=== PATIENT | female | born 1945 | race Caucasian/White ===

== ENCOUNTER 2021-05-15 04:42 | Inpatient (IN) | payer MEDICARE, MEDICAID, SELFPAY ==
[2021-05-15] VITALS (14 sets, daily range): BP systolic 100–130; BP diastolic 58–99; PULSE 83–148; RESP 16–34; TEMP 36.3–40.4; O2SAT 96–100; BMI 32.8
--- NOTE | ~2021-05-15 | CT_ITS ---
EXAMINATION: CT FOOT, LEFT, WITH CONTRAST CLINICAL INFORMATION: Left heel ulcer COMPARISON: None TECHNIQUE: Multidetector CT imaging examination of the left foot was performed with intravenous administration of 85 mL Omnipaque 350. No contrast reaction reported. This CT examination was performed using dose optimization techniques as appropriate, variously including the following: *Automated exposure control. *Adjustment of mA and/or kV according to patient size (this includes techniques or standardized protocols for targeted exams where dose is matched to indication/reason for exam, i.e., extremities or head). *Use of iterative reconstruction technique. DLP: 241 mGycm FINDINGS: There appears to be a superficial wound of the posterolateral heel without underlying fluid collection or soft tissue gas. Moderate atrophy and partial fatty replacement of muscles of the visualized lower leg and foot. No soft tissue mass. No ankle joint effusion. The fat planes are maintained within the sinus tarsi and tarsal tunnel. There is edema in subcutaneous tissues of the lower leg, ankle and proximal foot. The Achilles tendon is normal. No retrocalcaneal bursitis. Plantar aponeurosis is grossly intact. The peroneal, flexor, extensor and tibialis tendons are grossly unremarkable. No evidence of tenosynovitis. The bones are diffusely osteopenic. No evidence of erosion or periostitis. No acute fracture or subluxation. CT/CT foot LT w con IMPRESSION: * Bones are diffusely osteopenic. No acute osseous injury. * No evidence of soft tissue abscess or osteomyelitis in the left ankle or foot. * Mild edema is present in the subcutaneous tissues of the visualized lower leg, ankle and foot.
--- NOTE | ~2021-05-15 | XR_ITS ---
EXAMINATION: XR CHEST CLINICAL INFORMATION: Septic COMPARISON: None TECHNIQUE: Frontal view of the chest was obtained. FINDINGS: Normal symmetric lung volumes. No parenchymal consolidation. No pleural effusion. No pneumothorax. Cardiomediastinal silhouette and pulmonary vascularity are within normal limits. Aorta is atherosclerotic. No acute osseous abnormalities. XR/XR chest 1V IMPRESSION: Unremarkable examination.
--- NOTE | 2021-05-15 04:51 | ECG_ITS ---
Test Reason : AMS Blood Pressure : / mmHG Vent. Rate : 148 BPM Atrial Rate : 115 BPM P-R Int : 000 ms QRS Dur : 076 ms QT Int : 266 ms P-R-T Axes : 000 -09 208 degrees QTc Int : 417 ms Atrial fibrillation with rapid ventricular response ST & T wave abnormality, consider inferolateral ischemia Abnormal ECG No previous ECGs available Referred By: Amy Hernandez Electronically Signed By:CRYSTAL ZAVALA
--- NOTE | 2021-05-15 04:53 | ED_ITS ---
HPI - General Adult General Chief complaint: Skin/Abscess/Foreign Body Stated complaint: FOUND UNRESPONSIVE,AROUSE TO VERBAL @ SNF Time Seen by Provider: 05/15/21 04:51 Source: patient Mode of arrival: EMS History of Present Illness HPI narrative: 75-year-old female, recently diagnosed with sepsis, this is responsive to pain and will track with eyes but noted to be febrile at 104.1 and unable to provide additional information on initial arrival. Related Data Home Medications Medication Instructions Recorded Confirmed Lactobacillus rhamnosus GG 1 cap PO BID 05/15/21 05/15/21 [Culturelle] aripiprazole 15 mg PO DAILY 05/15/21 05/15/21 aspirin 81 mg PO DAILY 05/15/21 05/15/21 chlorhexidine gluconate [Peridex] 15 ml BUCCAL BID 05/15/21 05/15/21 divalproex 500 mg PO BID 05/15/21 05/15/21 doxycycline hyclate 100 mg PO BID 05/15/21 05/15/21 duloxetine 20 mg PO DAILY 05/15/21 05/15/21 levothyroxine 100 mcg PO DAILY 05/15/21 05/15/21 lorazepam 0.5 mg PO DAILY@1800 05/15/21 05/15/21 metformin 500 mg PO BID 05/15/21 05/15/21 metoprolol tartrate 25 mg PO BID 05/15/21 05/15/21 polyethylene glycol 3350 17 g PO DAILY 05/15/21 05/15/21 trazodone 25 mg PO BEDTIME 05/15/21 05/15/21 Allergies Allergy/AdvReac Type Severity Reaction Status Date / Time No Known Allergies Allergy Unverified 05/15/21 04:51 Review of Systems Review of Systems: Yes Unobtainable due to mental condition [facility] Past Medical History Source: nursing notes reviewed Social History Social History Advance Directives: No Advance Directives Information Provided: No Physical Exam Vital Signs: Vital Signs: Last Vital Signs Temp 99.7 F 05/15/21 07:36 Pulse 100 05/15/21 07:36 Resp 26 H 05/15/21 07:36 BP 129/60 05/15/21 07:36 Pulse Ox 100 05/15/21 07:36 Body Mass Index 32.8 VITAL SIGNS: Reviewed. GENERAL: Chronically ill, distress. HEAD: Normocephalic/atraumatic EYES: PERRLA, EOMI EARS: Ext canals without abnormality, TMs non-bulging and non-erythematous NOSE: Nares patent bilateral OROPHARYNX: no oral lesions noted, posterior pharynx clear, dry mucosa, protecting airway NECK: Supple, no adenopathy LUNGS: Decreased breath sounds bilaterally without rales and no noted rhonchi,+ tachypnea. SpO2<97> on supplemental nasal cannula CARDIOVASCULAR: IRR/IRR without noted murmurs, no JVD but lower extremity edema. ABDOMEN: Obese, Soft, non-tender, non-distended with bowel sounds. LEFT LOWER EXTREMITY: Significant edema, erythema, palpable DP/PT, capillary refill less than 3 seconds, pressure ulcer noted at the left heel with discoloration SKIN: Inspection of the skin reveals no rashes, tactile fever NEUROLOGIC: Lethargic and strength and sensation unable to be addressed. Course Course Course Narrative: 75-year-old female with history and clinical presentation consistent with sepsis secondary to left lower extremity cellulitis and initially rapid temperature intervention conducted with application of ice packs as well as medications. Patient received IV fluids, antibiotics, lactic acid, blood cultures as well as placement of Pascal catheter and antipyretics. On review of all investigations all findings consistent with sepsis secondary to left lower extremity cellulitis and despite reduction of temperature heart rate remained elevated and patient received 5 mg of Lopressor which resulted in good rate control and patient's blood pressure has remained stable throughout. On re-evaluation, patient is now easily arousable and communicates readily. Discussed the case with inpatient hospitalist team who is agreeable for admission. Medical Decision Making Lab Data Result diagrams: 05/15/21 04:59 05/15/21 05:00 Labs: Lab Results 05/15/21 05/15/21 05/15/21 Range/Units 04:59 04:59 05:00 WBC 13.0 H (4.8-10.8) X10*3/uL RBC 3.93 L (4.20-5.50) X10*6/uL Hgb 12.9 (12.0-16.0) g/dl Hct 38.5 (37-47) % MCV 98.0 (80-98) fL MCH 32.8 (27.0-33.0) pg MCHC 33.5 (31.0-35.0) g/dl RDW 14.1 (11.0-16.0) % Plt Count 88 L (160-400) X10*3/uL MPV 12.1 (9.4-12.3) fL Immature Gran % (Auto) 0.7 H (0.0-0.4) % Neut % (Auto) 85.7 H (45-73) % Lymph % (Auto) 4.8 L (20-40) % Castro % (Auto) 8.6 (2-11) % Eos % (Auto) 0.0 (0-4) % Baso % (Auto) 0.2 (0-2) % Lymph # (Auto) 0.6 L (1.2-4.9) X10*3/uL Castro # (Auto) 1.1 (0.1-1.2) X10*3/uL Eos # (Auto) 0.0 (0.0-0.4) X10*3/uL Baso # (Auto) 0.0 (0.0-0.2) X10*3/uL Abs Immat Gran (auto) 0.09 H (0.00-0.03) X10*3/uL Absolute Neuts (auto) 11.1 H (2.0-8.3) X10*3/uL Absolute Nucleated RBC 0.020 H (0.0-0.012) X10*3/uL Nucleated RBC % (auto) 0.2 (0.0-0.2) /100WBC PT 14.5 H (9.9-13.0) SEC INR 1.3 H (0.9-1.1) Sodium 139 (135-145) mmol/L Potassium 3.6 (3.3-5.1) mmol/L Chloride 104 (96-108) mmol/L Carbon Dioxide 20 L (22-29) mmol/L Anion Gap 19 (12-20) BUN 43 H (9-16) mg/dL Creatinine 1.53 H (0.5-1.4) mg/dL Estim Creat Clear Calc 36.3 Estimated GFR 33 Random Glucose 340 H (60-115) mg/dL Lactic Acid (0.5-2.0) mmol/L Calcium 8.5 (8.4-10.2) mg/dL Magnesium 1.7 (1.6-2.6) mg/dL Total Bilirubin 0.8 (0.0-1.0) mg/dL AST 16 (5-31) U/L ALT 22 (0-31) U/L Alkaline Phosphatase 59 (39-117) U/L B-Natriuretic Peptide (<100) pg/mL Total Protein 6.1 L (6.5-8.0) g/dL Albumin 3.2 L (3.5-5.0) g/dL Lipase 8 (8-78) U/L Urine Color Urine Appearance Urine pH (5.0-8.0) Ur Specific [place] (1.005-1.025) Urine Protein (NEG-TRACE) MG/DL Urine Glucose (UA) (NEG) MG/DL Urine Ketones (NEG) MG/DL Urine Blood (NEG) Urine Nitrite (NEG) Ur Leukocyte Esterase (NEG) Urine RBC (0) /HPF Urine WBC (0-4) /HPF Ur Squamous Epith Cells /LPF Amorphous Sediment /LPF Urine Bacteria /LPF Granular Casts /LPF Urine Mucus /LPF Acetone, Qual Negative (Negative) 05/15/21 05/15/21 05/15/21 Range/Units 05:00 05:00 05:12 WBC (4.8-10.8) X10*3/uL RBC (4.20-5.50) X10*6/uL Hgb (12.0-16.0) g/dl Hct (37-47) % MCV (80-98) fL MCH (27.0-33.0) pg MCHC (31.0-35.0) g/dl RDW (11.0-16.0) % Plt Count (160-400) X10*3/uL MPV (9.4-12.3) fL Immature Gran % (Auto) (0.0-0.4) % Neut % (Auto) (45-73) % Lymph % (Auto) (20-40) % Castro % (Auto) (2-11) % Eos % (Auto) (0-4) % Baso % (Auto) (0-2) % Lymph # (Auto) (1.2-4.9) X10*3/uL Castro # (Auto) (0.1-1.2) X10*3/uL Eos # (Auto) (0.0-0.4) X10*3/uL Baso # (Auto) (0.0-0.2) X10*3/uL Abs Immat Gran (auto) (0.00-0.03) X10*3/uL Absolute Neuts (auto) (2.0-8.3) X10*3/uL Absolute Nucleated RBC (0.0-0.012) X10*3/uL Nucleated RBC % (auto) (0.0-0.2) /100WBC PT (9.9-13.0) SEC INR (0.9-1.1) Sodium (135-145) mmol/L Potassium (3.3-5.1) mmol/L Chloride (96-108) mmol/L Carbon Dioxide (22-29) mmol/L Anion Gap (12-20) BUN (9-16) mg/dL Creatinine (0.5-1.4) mg/dL Estim Creat Clear Calc Estimated GFR Random Glucose (60-115) mg/dL Lactic Acid 3.1 H* (0.5-2.0) mmol/L Calcium (8.4-10.2) mg/dL Magnesium (1.6-2.6) mg/dL Total Bilirubin (0.0-1.0) mg/dL AST (5-31) U/L ALT (0-31) U/L Alkaline Phosphatase (39-117) U/L B-Natriuretic Peptide 149 H (<100) pg/mL Total Protein (6.5-8.0) g/dL Albumin (3.5-5.0) g/dL Lipase (8-78) U/L Urine Color DARK YELLOW Urine Appearance CLOUDY Urine pH 6.0 (5.0-8.0) Ur Specific [place] >= 1.030 H (1.005-1.025) Urine Protein 2+ H (NEG-TRACE) MG/DL Urine Glucose (UA) 500 H (NEG) MG/DL Urine Ketones 40 (NEG) MG/DL Urine Blood 2+ H (NEG) Urine Nitrite NEG (NEG) Ur Leukocyte Esterase NEG (NEG) Urine RBC 0-2 (0) /HPF Urine WBC 1-4 (0-4) /HPF Ur Squamous Epith Cells TRACE /LPF Amorphous Sediment 3+ /LPF Urine Bacteria NONE /LPF Granular Casts 15-29 /LPF Urine Mucus 1+ /LPF Acetone, Qual (Negative) ECG Data Attestation: I personally reviewed and interpreted this ECG as follows: Prior ECG tracings: not available for review Interpretation: Atrial fibrillation with RVR, HR -148, no STEMI, QRS/QTC are within normal limits. Critical Care Time Critical Care Time Critical Care Time: Yes Total Critical Care Time: 45 Attestation: I personally attest to this time spent taking care of the patient. Discharge Plan Discharge Clinical Impression: Cellulitis, Sepsis, SHREYAS (acute kidney injury), Dehydration Patient Disposition: Admitted As Inpatient
[2021-05-15] MEDS: Acetaminophen Supp 650 MG SUPP.RECT PR (05:04)
[2021-05-15] MEDS: Ketorolac Tromethamine 15 MG/ML VIAL IVPUSH (05:06)
[2021-05-15 05:07] LABS: MANUAL DIFF FLAG NO
[2021-05-15 05:08] LABS: Basophils Percent Auto 0.2 % (0-2); Hematocrit 38.5 % (37-47); Hemoglobin 12.9 g/dl (12.0-16.0); Imm Gran Abs Auto 0.09 X10*3/uL (0.00-0.03); Imm Gran Pct Auto 0.7 % (0.0-0.4); Lymphocytes Absolute Auto 0.6 X10*3/uL (1.2-4.9); Lymphocytes Percent Auto 4.8 % (20-40); Mean Corpuscular HGB Conc 33.5 g/dl (31.0-35.0); Mean Corpuscular Hemoglobin 32.8 pg (27.0-33.0); Mean Platelet Volume 12.1 fL (9.4-12.3); Monocytes Absolute Auto 1.1 X10*3/uL (0.1-1.2); Monocytes Percent Auto 8.6 % (2-11); NRBC Pct Auto 0.2 /100WBC (0.0-0.2); Neutrophils Absolute Auto 11.1 X10*3/uL (2.0-8.3); Neutrophils Percent Auto 85.7 % (45-73); Red Blood Count 3.93 X10*6/uL (4.20-5.50); Red Cell Distribution Width 14.1 % (11.0-16.0)
[2021-05-15 05:11] LABS: Platelet Count 88 X10*3/uL (160-400)
[2021-05-15 05:17] LABS: INTERNATIONAL NORM RATIO 1.3 (0.9-1.1); Prothrombin Time 14.5 SEC (9.9-13.0)
[2021-05-15 05:20] LABS: Glucose Urine UA 500 MG/DL (NEG); Leukocyte Esterase Urine NEG (NEG); Nitrite Urine NEG (NEG); Specific Gravity - Urine >= 1.030 (1.005-1.025); Urine Blood 2+ (NEG); Urine Ketones 40 MG/DL (NEG); Urine Protein 2+ MG/DL (NEG-TRACE)
[2021-05-15 05:21] LABS: Appearance Urine CLOUDY; Color Urine DARK YELLOW
[2021-05-15 05:22] LABS: Acetone, serum QL Negative (Negative)
[2021-05-15 05:32] LABS: Alanine Aminotransferase 22 U/L (0-31); Albumin Level 3.2 g/dL (3.5-5.0); Alkaline Phosphatase 59 U/L (39-117); Anion Gap 19 (12-20); Aspartate Amino Transferase 16 U/L (5-31); Bilirubin Total 0.8 mg/dL (0.0-1.0); Blood Urea Nitrogen 43 mg/dL (9-16); Calcium 8.5 mg/dL (8.4-10.2); Carbon Dioxide 20 mmol/L (22-29); Chloride 104 mmol/L (96-108); Creatinine Clr Calc Pharmacy 36.3; Estimated Glomerular Filt Rate 33; Glucose Random 340 mg/dL (60-115); Lipase 8 U/L (8-78); Magnesium 1.7 mg/dL (1.6-2.6); Potassium 3.6 mmol/L (3.3-5.1); Sodium 139 mmol/L (135-145); Total Protein 6.1 g/dL (6.5-8.0)
[2021-05-15 05:38] LABS: Amorphous Sediment Urine 3+ /LPF; Mucus Urine 1+ /LPF; RBC Urine 0-2 /HPF (0); Squamous Epithelial Cell Urine TRACE /LPF
[2021-05-15 05:46] LABS: Lactic Acid 3.1 mmol/L (0.5-2.0)
[2021-05-15 06:36] LABS: B Type Natriuretic Peptide 149 pg/mL (<100)
[2021-05-15] MEDS: Metoprolol Tartrate 5 MG/5 ML VIAL IVPUSH (06:46)
[2021-05-15] MEDS: 0.9 % Sodium Chloride 1,779 ML 1779 ML IVCONT (06:47)
[2021-05-15 07:06] LABS: Reflex Lactate? Lactic Acid Added
--- NOTE | 2021-05-15 07:35 | PHA.MEDREC ---
Pharmacy Consult ? Medication Reconciliation Pharmacy has completed the medication reconciliation.
[2021-05-15] MEDS: Piperacillin Sodium/Tazobactam 3.375 GM in 0.9 % Sodium Chloride 50 ML IV (07:48)
[2021-05-15 08:14] LABS: COVID-19 Test Negative (Negative)
[2021-05-15 08:30] LABS: ~Lactic Acid-LAB USE ONLY 2.7 mmol/L (0.5-2.0)
--- NOTE | 2021-05-15 09:07 | P.HPHOSP_ITS ---
History of Present Illness Date of Service: 05/15/21 Chief Complaint: altered mental status, fever, leg infection This history is obtained from review of the ED and SNF records, due to the patient's altered mental status. Ms Cook is a 75 year-old female long-term resident of [facility] with a history of recurrent sepsis from lower extremity cellulitis with bacteremia, atrial fibrillation, vascular dementia, and schizoaffective disorder who was sent in with worsening lethargy over the last 2 days in the context of cellulitis of the left leg and thigh. She was started on oral doxycycline 2 days ago, but the redness has progressed and she has basically stopped eating. She has been admitted to [facility] 3 times since March 2020 for sepsis from cellulitis with beta-hemolytic streptococcal bacteremia. Most recently, in November, she had cellulitis of the left thigh associated with group G streptococcal bacteremia and was treated with IV/IM ceftriaxone for 2 weeks. An echocardiogram during that admission showed normal EF and no vegetations. She was fully vaccinated against COVID-19 with mRNA vaccines in October 2020. In the ED, she was found to be severely septic with T 104.7, lactate of 3.1, and WBC 13. BP was 100/59. She was in AF/RVR with ventricular rate in the 140s. Platelets were decreased to 88 and serum cratinine was 1.53, compared to 0.896 on 05/13/21. She was hyperglycemic with glucose of 340. She was given APAP, IV metoprolol, 30 cc/kg of NS, and piperacillin/tazobactam. Currently, she is afebrile and ventricular rate is in the 90s and BP is 114/58. Review of Systems Review of Systems: Yes Unobtainable due to mental condition [facility] Medical History Atrial fibrillation Chronic constipation Hypothyroidism Recurrent bacteremia Recurrent cellulitis Schizoaffective disorder Trimalleolar fracture of ankle, closed Type 2 diabetes mellitus Vascular dementia Vitamin B12 deficiency Vitamin D deficiency Pertinent family history: unable to obtain due to patient condition and inability to reach family Surgical History Status post ORIF of fracture of ankle Social History Household Members: None Housing: Group Home Do you presently have visiting nurse or other home services: No Patient Tobacco Use Status: Never used Tobacco Use of substances other than those prescribed or required for medical reasons: No Currently Displaying Signs/Symptoms of Drug Intoxication Withdrawal: No Have you been hit, kicked, punched, or otherwise hurt by someone within the past year? If so, by whom?: No Do you feel safe in your current relationship?: No Is there a partner from a previous relationship who is making you feel unsafe now?: No Are you made to feel afraid or neglected: No Advance Directives: Yes (MARVEL VICENTE) Advance Directives on File: Yes Advance Directives Date on File: 05/15/21 Do you have thoughts of harming others: None Do you have a plan to hurt others: No Plan Recently lost weight without trying: No Nutrition Risks: No Nutritional Risk Patient : No : No Poor oral hygiene: No service: No Current occupational status: disabled Narrative: unable to obtain due to patient condition and inability to reach family Meds Allergies Allergy/AdvReac Type Severity Reaction Status Date / Time No Known Allergies Allergy Unverified 05/15/21 04:51 Active Medications: Current Medications Generic Name Dose Route Start Last Admin Trade Name Freq PRN Reason Stop Dose Admin Acetaminophen 650 mg 05/15/21 09:04 Acetaminophen 325 Mg Tablet PO Q6H PRN fever/pain Docusate Sodium 100 mg 05/15/21 09:15 Docusate Sodium 100 Mg Capsule PO BID CARRIE Enoxaparin Sodium 30 mg 05/15/21 09:15 Enoxaparin Sodium 30 Mg/0.3 Ml Syringe SUBCUT Q24H CARRIE Piperacillin Sod/Tazobactam 50 mls @ 100 mls/hr 05/15/21 09:00 Sod 2.25 gm/ Sodium Chloride IV Q6H CARRIE Lactated Ringer's 1,000 mls @ 50 mls/hr 05/15/21 09:00 Lr IVCONT 05/16/21 04:59 .Q20H CARRIE Insulin Human Lispro 0 unit 05/15/21 11:30 Insulin Lispro 100 Unit/Ml 3 Ml Vial SUBCUT QIDACHS CARRIE Ondansetron HCl 4 mg 05/15/21 09:01 Ondansetron Hcl 4 Mg/2 Ml Vial IVPUSH Q6H PRN nausea/vomitingadd Pharmacy Consult 1 each 05/15/21 07:16 Consult Rx Perform Med Rec MISCELLANE ONCE PRN Consult order Pharmacy Consult 1 each 05/15/21 08:55 Consult Rx Vancomycin Dosing MISCELLANE 05/15/21 08:56 STAT STA Polyethylene Glycol 17 gm 05/15/21 09:01 Polyethylene Glycol 3350 17 Gm Powd.Pack PO DAILY PRN constipation Senna 17.2 mg 05/15/21 21:00 Sennosides 8.6 Mg Tablet PO BEDTIME [facility] Home Medications Medication Instructions Recorded Confirmed Last Taken Type Lactobacillus rhamnosus GG 10 1 cap PO BID 05/15/21 05/15/21 05/14/21 History billion cell capsule (Culturelle) aripiprazole 15 mg tablet 15 mg PO DAILY 05/15/21 05/15/21 05/14/21 History aspirin 81 mg tablet,delayed 81 mg PO DAILY 05/15/21 05/15/21 05/14/21 History release chlorhexidine gluconate 0.12 % 15 ml BUCCAL BID 05/15/21 05/15/21 05/14/21 History mouthwash (Peridex) divalproex 500 mg tablet,delayed 500 mg PO BID 05/15/21 05/15/21 05/14/21 History release doxycycline hyclate 100 mg capsule 100 mg PO BID 05/15/21 05/15/21 05/14/21 History duloxetine 20 mg capsule,delayed 20 mg PO DAILY 05/15/21 05/15/21 05/14/21 History release levothyroxine 100 mcg tablet 100 mcg PO DAILY 05/15/21 05/15/21 05/14/21 History lorazepam 0.5 mg tablet 0.5 mg PO DAILY@1800 05/15/21 05/15/21 05/14/21 History metformin 500 mg tablet 500 mg PO BID 05/15/21 05/15/21 05/14/21 History metoprolol tartrate 25 mg tablet 25 mg PO BID 05/15/21 05/15/21 05/14/21 History polyethylene glycol 3350 17 gram 17 g PO DAILY 05/15/21 05/15/21 05/14/21 History oral powder packet trazodone 50 mg tablet 25 mg PO BEDTIME 05/15/21 05/15/2105/14/21 History Physical Exam Vital Signs and Narrative: Vital Signs: Last Vital Signs Temp 99.0 F 05/15/21 08:45 Pulse 93 05/15/21 08:45 Resp 24 H 05/15/21 08:45 BP 114/58 L 05/15/21 08:45 Pulse Ox 100 05/15/21 08:45 Body Mass Index 32.8 Gen: chronically ill-appearing. alert but not really oriented. states that her leg pain is better. HEENT: sclera anicteric, very dry oropharynx Neck: supple, no lymphadenopathy or goiter Lungs: clear to auscultation bilaterally Heart: irregularly irregular, no murmurs Abd: soft, non-tender, non-distended Ext: extensive well-demarcated bright erythema of the left leg extending from hip down to ankle; no fluctuance; no drainage Skin: warm/well-perfused Neuro: alert, disoriented, no facial droop, no pronator drift; generalized weakness Psych: impaired insight Results Labs CBC and Chem 7: 05/16/21 04:20 05/16/21 04:20 Labs: Laboratory Results - last 24 hr 05/15/21 05/15/21 05/15/21 04:59 04:59 05:00 MCV 98.0 MCH 32.8 MCHC 33.5 RDW 14.1 Plt Count 88 L MPV 12.1 Immature Gran % (Auto) 0.7 H Neut % (Auto) 85.7 H Lymph % (Auto) 4.8 L [place] % (Auto) 8.6 Eos % (Auto) 0.0 Baso % (Auto) 0.2 Lymph # (Auto) 0.6 L [place] # (Auto) 1.1 Eos # (Auto) 0.0 Baso # (Auto) 0.0 Abs Immat Gran (auto) 0.09 H Absolute Neuts (auto) 11.1 H Absolute Nucleated RBC 0.020 H Nucleated RBC % (auto) 0.2 PT 14.5 H INR 1.3 H Anion Gap 19 Estim Creat Clear Calc 36.3 Estimated GFR 33 Random Glucose 340 H Lactic Acid Lactic Acid Fup @ 2Hr Calcium 8.5 Magnesium 1.7 Total Bilirubin 0.8 AST 16 ALT 22 Alkaline Phosphatase 59 B-Natriuretic Peptide Total Protein 6.1 L Albumin 3.2 L Lipase 8 Urine Color Urine Appearance Urine pH Ur Specific [place] Urine Protein Urine Glucose (UA) Urine Ketones Urine Blood Urine Nitrite Ur Leukocyte Esterase Urine RBC Urine WBC Ur Squamous Epith Cells Amorphous Sediment Urine Bacteria Granular Casts Urine Mucus Acetone, Qual Negative COVID-19 (LUISANA) COVID-19 Clin Com 05/15/21 05/15/21 05/15/21 05:00 05:00 05:12 MCV MCH MCHC RDW Plt Count MPV Immature Gran % (Auto) Neut % (Auto) Lymph % (Auto) [place] % (Auto) Eos % (Auto) Baso % (Auto) Lymph # (Auto) [place] # (Auto) Eos # (Auto) Baso # (Auto) Abs Immat Gran (auto) Absolute Neuts (auto) Absolute Nucleated RBC Nucleated RBC % (auto) PT INR Anion Gap Estim Creat Clear Calc Estimated GFR Random Glucose Lactic Acid 3.1 H* Lactic Acid Fup @ 2Hr Calcium Magnesium Total Bilirubin AST ALT Alkaline Phosphatase B-Natriuretic Peptide 149 H Total Protein Albumin Lipase Urine Color DARK YELLOW Urine Appearance CLOUDY Urine pH 6.0 Ur Specific [place] >= 1.030 H Urine Protein 2+ H Urine Glucose (UA) 500 H Urine Ketones 40 Urine Blood 2+ H Urine Nitrite NEG Ur Leukocyte Esterase NEG Urine RBC 0-2 Urine WBC 1-4 Ur Squamous Epith Cells TRACE Amorphous Sediment 3+ Urine Bacteria NONE Granular Casts 15-29 Urine Mucus 1+ Acetone, Qual COVID-19 (LUISANA) COVID-19 Clin Com 05/15/21 05/15/21 07:41 07:55 MCV MCH MCHC RDW Plt Count MPV Immature Gran % (Auto) Neut % (Auto) Lymph % (Auto) [place] % (Auto) Eos % (Auto) Baso % (Auto) Lymph # (Auto) [place] # (Auto) Eos # (Auto) Baso # (Auto) Abs Immat Gran (auto) Absolute Neuts (auto) Absolute Nucleated RBC Nucleated RBC % (auto) PT INR Anion Gap Estim Creat Clear Calc Estimated GFR Random Glucose Lactic Acid Lactic Acid Fup @ 2Hr 2.7 H* Calcium Magnesium Total Bilirubin AST ALT Alkaline Phosphatase B-Natriuretic Peptide Total Protein Albumin Lipase Urine Color Urine Appearance Urine pH Ur Specific [place] Urine Protein Urine Glucose (UA) Urine Ketones Urine Blood Urine Nitrite Ur Leukocyte Esterase Urine RBC Urine WBC Ur Squamous Epith Cells Amorphous Sediment Urine Bacteria Granular Casts Urine Mucus Acetone, Qual COVID-19 (LUISANA) Negative COVID-19 Clin Com See Note EKG shows AF with RVR, inferolateral T wave inversions. Imaging Radiologist's Impressions: Impressions Chest X-Ray 05/15/21 04:51 IMPRESSION: Unremarkable examination. Assessment and Plan (1) Severe sepsis: Status: Acute # severe sepsis from LLE cellulitis/erysipelas - Skin/soft tissue source. No drainable collection. Probably will field return repairer to be bacteremic. Admit to IMC. Give vancomycin + piperacillin/tazobactam and follow blood cultures. Continue fluid resuscitation and trend lactate to normal. ID consultation. # AF/RVR - Rate now reasonably controlled in the 90s. Continue metoprolol. Not on full anticoagulation; just on ASA, presumably due to fall risk. Check Mg and replete if <2. Check TTE # septic encephalopathy - Appears to be improving with antipyretics, fluid resuscitation, and antibiotics. Continue to monitor mental status and watch for ing. # SHREYAS - Likely septic ATN. Avoid nephrotoxins, fluid resuscitate, and recheck BMP in am. Renally dose medications. # thrombocytopenia - Likely due to sepsis. Monitor CBC closely. # HTN - Metoprolol as above. # schizoaffective disorder - Continue valproate, aripiprazole, duloxetine, lorazepam and trazodone # dementia, vascular - Continue psychiatric medications as above. Frequent re-orientation. # hypothyroidism - Continue LT4. # DM2 - POC BG + correction-dose lispro; hold MTF; check A1c # VTE ppx - Mod-high risk; will give LMWH # code - Per MOLST form, pt is full code. I did reach the pt's granddaughter, her alternate HCP, at [phone] and updated her with the patient's status. She will reach out to the pt's primary HCP, her son Selvin, who I was unable to reach at the listed number. She will give him the [facility] number so he can call me. Quality Stroke Does the patient have a stroke diagnosis?: No VTE Prior VTE?: No VTE Risk Level:: Medical - moderate - high VTE Device Contraindication: N/A - Device Ordered VTE Drug Contraindication: N/A - Med Ordered
[2021-05-15 09:47] LABS: Vitamin B12 1645 pg/mL (200-900)
[2021-05-15 09:48] LABS: Estimated Average Glucose 157 mg/dL; Hemoglobin A1c % 7.1 %
[2021-05-15 09:57] LABS: Reflex Lactate? 2 Y
[2021-05-15] MEDS: Enoxaparin Sodium 40 MG/0.4 ML SYRINGE SUBCUT (10:18)
[2021-05-15] MEDS: vancomycin HCL 1,000 MG in 0.9 % Sodium Chloride 250 ML 270 MG IV (10:18)
[2021-05-15] MEDS: Lactated Ringers 1,000 ML 50 ML IVCONT (10:19)
[2021-05-15 10:33] LABS: Glucose, Whole Blood 279 mg/dL (60-115)
--- NOTE | 2021-05-15 10:59 | MHC.CM.PN ---
Attempted to speak with patient's son/HCP Selvin via telephone at [phone]. He will arrive at [facility] in about an hour. Patient is a LTC resident of [facility]. Anticipate patient will return when medically stable. Continue to monitor for d/c needs.
[2021-05-15 11:01] LABS: ~Lactic Acid-LAB USE ONLY 3.1 mmol/L (0.5-2.0)
[2021-05-15] MEDS: Magnesium Sulfate/H2O 2 GM/50 ML PIGGYBACK IV (11:29)
--- NOTE | 2021-05-15 12:52 | MHC.CM.PN ---
Met with patient and son/HCP, Selvin in regards to discharge planning. 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 Copy of HCP and MLOST obtained from [facility]. IMM explained and signed. Patient will return to [facility] via BLS when medically stable. Continue to monitor for d/c needs.
[2021-05-15 13:16] LABS: Glucose, Whole Blood 366 mg/dL (60-115)
[2021-05-15] MEDS: Insulin Lispro 100 UNIT/ML 3 ML VIAL SUBCUT ×3 (13:29→21:34)
--- NOTE | 2021-05-15 14:00 | MHC.SL.SWA ---
Speech Pathologist Impression: Risk of Aspiration Oral Phase Dysphagia Risk of Aspiration Due to: Poor PO Intake Reduced Cognition Dysphasia Diet Status: Upgrade Liquid Consistency and Strategies for Safe Swallow: Liquid Intake Recommendation: Thin Liquid Intake Strategies: Small Sips No Straws Solid Food Consistency: Dietary Recommendations: Grnd/Mech Altered (NDD2) Additional Modifications to Solid Foods: Oral Medication Intake: Crushed with Puree Compensatory Strategies and Precautions to be Taken for Safe Swallow: Sitting Upright (90 deg) No Straw Liquids from Cup Small Bites and Sips Alternate Liquids/Solids Oral Check Supervision While Eating and Drinking for Safe Swallow: Total Assistance Foods to Avoid: Swallowing Recommended Treatments: Recommendation for Speech: Inpatient Speech Therapy Comment: MANAGER COLLECTION will continue to follow during hospitalization. Frequency/Duration: Date Range for Service Req: Timeline to reassess: Tack Puller Machine Clinican/Clinical Fellow: No Supervisory Statement: I have reviewed and agree with the student/clinical fellow's documentation: N/A Speech Language Pathologist: Karen Hammond M.A. CCC-MANAGER COLLECTION
[2021-05-15] MEDS: Piperacillin Sodium/Tazobactam 2.25 GM in 0.9 % Sodium Chloride 50 ML IV ×2 (16:59→20:32)
[2021-05-15 17:41] LABS: Glucose, Whole Blood 378 mg/dL (60-115)
[2021-05-15] MEDS: traZODone HCL 25 MG HALFTAB PO (20:31)
[2021-05-15] MEDS: Chlorhexidine Gluc Oral Rinse 15 ML MOUTHWASH BUCCAL (20:31)
[2021-05-15] MEDS: Docusate Sodium 100 MG CAPSULE PO (20:31)
[2021-05-15] MEDS: Sennosides 8.6 MG TABLET 17.2 MG PO (20:31)
[2021-05-15] MEDS: Divalproex Sodium 500 MG TABLET.DR PO (20:31)
[2021-05-15] MEDS: Metoprolol Tartrate 25 MG TABLET PO (20:31)
[2021-05-15] MEDS: 0.9 % Sodium Chloride Flush 3 ML SYRINGE IVFLUSH (20:32)
[2021-05-15 21:15] LABS: Glucose, Whole Blood 273 mg/dL (60-115)
[2021-05-16] VITALS (8 sets, daily range): BP systolic 110–164; BP diastolic 55–78; PULSE 96–120; RESP 15–20; TEMP 36.1–37.1; O2SAT 94–100; BMI 32.8
[2021-05-16] MEDS: Piperacillin Sodium/Tazobactam 2.25 GM in 0.9 % Sodium Chloride 50 ML IV ×4 (02:10→21:02)
[2021-05-16] MEDS: Levothyroxine Sodium 100 MCG TABLET PO (06:26)
[2021-05-16 06:32] LABS: Hematocrit 35.1 % (37-47); Hemoglobin 11.1 g/dl (12.0-16.0); Mean Corpuscular HGB Conc 31.6 g/dl (31.0-35.0); Mean Corpuscular Hemoglobin 31.6 pg (27.0-33.0); Mean Platelet Volume 12.8 fL (9.4-12.3); Red Blood Count 3.51 X10*6/uL (4.20-5.50); Red Cell Distribution Width 14.4 % (11.0-16.0); White Blood Count 9.4 X10*3/uL (4.8-10.8)
[2021-05-16 06:41] LABS: Platelet Count 75 X10*3/uL (160-400)
[2021-05-16 07:24] LABS: Anion Gap 14 (12-20); Blood Urea Nitrogen 51 mg/dL (9-16); Calcium 8.3 mg/dL (8.4-10.2); Carbon Dioxide 23 mmol/L (22-29); Chloride 106 mmol/L (96-108); Estimated Glomerular Filt Rate 37; Glucose Random 128 mg/dL (60-115); Magnesium 2.2 mg/dL (1.6-2.6); Sodium 140 mmol/L (135-145)
[2021-05-16 07:33] LABS: Glucose, Whole Blood 110 mg/dL (60-115)
[2021-05-16] MEDS: 0.9 % Sodium Chloride Flush 3 ML SYRINGE IVFLUSH ×3 (07:48→21:01)
[2021-05-16] MEDS: Metoprolol Tartrate 25 MG TABLET PO ×2 (07:51→21:02)
[2021-05-16] MEDS: ARIPiprazole 15 MG TABLET PO (07:52)
[2021-05-16] MEDS: Chlorhexidine Gluc Oral Rinse 15 ML MOUTHWASH BUCCAL ×2 (07:52→21:02)
[2021-05-16] MEDS: Aspirin Enteric Coated 81 MG TABLET.DR PO (07:52)
[2021-05-16] MEDS: Potassium Chloride Packet 20 MEQ PACKET 40 MEQ PO (09:45)
[2021-05-16] MEDS: Enoxaparin Sodium 40 MG/0.4 ML SYRINGE SUBCUT (09:48)
[2021-05-16] MEDS: vancomycin HCL 1,000 MG in 0.9 % Sodium Chloride 250 ML 270 MG IV (09:49)
[2021-05-16 09:51] LABS: Lactic Acid 2.9 mmol/L (0.5-2.0)
[2021-05-16 11:15] LABS: Glucose, Whole Blood 207 mg/dL (60-115)
[2021-05-16 11:24] LABS: Reflex Lactate? Lactic Acid Added
[2021-05-16] MEDS: Insulin Lispro 100 UNIT/ML 3 ML VIAL SUBCUT ×3 (11:50→21:03)
[2021-05-16 12:31] LABS: ~Lactic Acid-LAB USE ONLY 3.7 mmol/L (0.5-2.0)
--- NOTE | 2021-05-16 12:33 | MHC.CLN ---
RE: CONSULT PT WITH INCREASED NUTRITION RISK R/T PRESSURE INJURIES POOR PO INTAKE MANUFACTURING SUPPORT ENGINEER DIET RX: 1800DM PUREED WITH NT LIQ-APPROPRIATE ELECTRICAL MECHANIC REC PUREED WITH NT LIQ (05/16) RECOMMEND 2000DM DIET TO PROMOTE INCREASED KCALS FOR WOUND HEALING IN ADDITION, WILL START GLUCERNA AND JYADEN TO PROMOTE WOUND HEALING SUPPLEMENTS TO PROVIDE 634KCALS, 25G PROTEIN MONITOR PO INTAKE CLOSELY SEE CLINICAL NUTRITION ASSESSMENT
--- NOTE | 2021-05-16 13:00 | CA_ITS ---
Transthoracic Echocardiogram Patient (Last, First, Middle): Emi Cook, Gender: Female Date of : 1945 Age: 75 Procedure Date: 05/16/2021 Procedure Type: Transthoracic Echocardiogram Location: [facility] [place] Height: 167.64 cm Weight: 92.08 kg BSA: 2.01 m2 Heart Rate: bpm BP: 129 / 71 mmHg Intervention Manager: DIANA Referring MD: Beatris Abbott MD Symptoms: AF/RVR, bacteremia Study Quality: Fair ECG Rhythm: Atrial Fibrillation Conclusions: - The left ventricular systolic function is normal. The visually estimated ejection fraction is between 60-65%. - No obvious valvular pathology seen on this study. Findings Left Ventricle Normal left ventricular cavity size. There is normal left ventricular wall thickness. The left ventricular systolic function is normal. The visually estimated ejection fraction is between 60-65%. There is no evidence of regional wall motion abnormalities. Diastolic function is indeterminate on the basis of available data. Right Ventricle Normal right ventricular cavity size. There is low normal right ventricular systolic function. Aortic Valve There is a normal trileaflet aortic valve. There is no aortic valve stenosis. There is trace (trivial) aortic valve regurgitation. Mitral Valve The mitral valve appears normal. There is no mitral valve regurgitation. There is no mitral valve stenosis. Pulmonic Valve The pulmonic valve was not well visualized. Tricuspid Valve Normal tricuspid valve structure. There is trace tricuspid valve regurgitation. The pulmonary artery systolic pressure is normal. Great Vessels The aortic annulus, sinuses of valsalva, and asc aorta are normal in size. Venous The inferior vena cava was not well visualized. The inferior vena cava is normal in size. Pericardium/Pleural There is no evidence of pericardial effusion. Prior Study Comparison No prior study available for comparison. Recommendations, Care & Conclusions No obvious valvular pathology seen on this study. Measurements 2D Linear Measurements IVSd: 0.93 0.6-0.9/0.6-1.0 cm LVIDd: 3.24 3.9-5.3/4.2-5.9 cm LVIDd Index: 1.61 2.4-3.2/2.2-3.1 cm/m2 LVIDs: 2.35 2.0-3.6 cm LVPWd: 0.92 0.7-1.1 cm Ao Root: 2.70 2.1-3.5 cm LA Diam: 2.90 2.7-3.8/3.0-4.0 cm LAIDs Index: 1.44 1.5-2.3 cm/m2 LV Mass: 101.61 67-162/88-224 g LV Mass Index: 50.55 43-95/49-115 g/m2 LVOT Diam: 2.00 3.0+(-)1.3 cm 2D Systolic Function EF 4C: 61.10 >55% EF 2C: 53.40 >55% EF BiP: 57.80 >55% Aortic Valve AoV Pk Art: 1.13 AoV Mn Art: 0.80 AoV VTI: 0.19 AoV Pk Grad: 5.00 Aov Mn Grad: 3.00 KASEY Cont.VTI: 2.21 LVOT LVOT Pk Art: 0.84 LVOT Mn Art: 0.60 LVOT VTI: 0.14 LVOT Pk Grad: 3.00 LVOT Mn Grad: 2.00 LVOT Diam: 2.00 LVOT Area: 3.14 Tricuspid Valve TR Pk Art: 2.27 TR Pk Grad: 21.00 RA Press: 8.00 RVSP: 29.00 Great Vessels Aorta Ao Root-2D: 2.70 2.0-3.7 cm Ao Asc: 3.20 2.1-3.4 cm Ao Arch: 2.90 Updated in Other Vendor System with Status of Final Jonathan Verdugo MD electronically signed on 05/16/2021 3:42:28 PM with status of Final
--- NOTE | 2021-05-16 13:00 | MHC.CM.PN ---
female 75 DX Severe sepsis SHREYAS AF. She comes from [facility]. DP is to return to [facility] via BLS. CM will follow.
--- NOTE | 2021-05-16 13:08 | MHC.SL.DTX ---
Pre-Treatment Diet: Ground/Mech (NDD2) solids THIN liquids CRUSHED in PUREE Subjective: Changes made to current diet?: YES Dysphasia Diet Status: DOWNGRADE Liquid Consistency and Strategies: Liquid Intake Recommendation: [place] Thick Compensatory Strategies for Safe Swallow: Small Sips No Straws Compensatory Strategies for Safe Swallow(b): Sitting Upright (90 deg) No Straw Liquids from Cup Small Bites and Sips Alternate Liquids/Solids Oral Check Solid Food Consistency: Dietary Recommendations: Pureed (NDD1) Additional Modifications to Solids: Oral Medication Intake: Crushed with Puree Strategies and Precautions to be Taken for Safe Swallow: Compensatory Swallowing Status: Sitting Upright (90 deg) No Straw Liquids from Cup Small Bites and Sips Alternate Liquids/Solids Oral Check Supervision While Eating and/Drinking: Total Assistance Foods to Avoid: Swallowing Recommended Treatments: Level of Impact on: Daily activities: Mild Interpersonal interactions: Mild Education: None Employment: None Community: Mild Prognosis for Improvement: Guarded Recommendation for Speech: Inpatient Speech Therapy Comment: [employer]GS[facility] MAT INSPECTOR will continue to follow during hospitalization. Frequency/Duration: Date Range for Service Req: Timeline to reassess: Additional Comments: Treatment: Pt was seen this morning for dysphagia follow up. Per RN, pt coughing with thin liquids. Pt did not eat breakfast this morning. Poor PO intake. Pt upright in bed upon HOGSHEAD MAT INSPECTOR's arrival. Pt accepted PO trials. Pt given thin liquid via cup sip and straw sip. Delayed wet cough noted with both. Pt tolerated nectar thick liquids via tsp, cup sip, and straw sip with no overt s/s aspiration. Pt was given a bite of chicken salad. Note moderately prolonged oral phase, moderate oral residue (lingual and buccal). Pt cleared residue with multiple sips of thickened liquid and bite of applesauce. Pt tolerates pureed solids without difficulty. Assessment: Java Developer Consultant Clinican/Clinical Fellow: No Supervisory Statement: I have reviewed and agree with the student/clinical fellow's documentation: N/A Speech Language Pathologist: Karen Hammond M.A. [facility] MAT INSPECTOR
[2021-05-16 14:04] LABS: Reflex Lactate? 2 Y
[2021-05-16 14:16] LABS: Cancel Lactic Acid Canceled
--- NOTE | 2021-05-16 15:03 | P.PNIM_ITS ---
Subjective Subjective Date of Service: 05/16/21 Interval History: More awake. Some difficulty with swallowing- diet downgraded from NDD2 to NDD1. Denies any pain. History limited due to impaired insight. Fever resolved, though. Physical Exam Vital Signs: Vital Signs: Last Vital Signs Temp 98.7 F 05/16/21 11:01 Pulse 111 H 05/16/21 11:01 Resp 18 05/16/21 11:01 BP 111/57 L 05/16/21 11:01 Pulse Ox 98 05/16/21 11:01 Body Mass Index 32.8 Gen: alert HEENT: sclera anicteric, moist oropharynx Neck: supple Lungs: clear to auscultation bilaterally Heart: irregularly irregular, no murmurs Abd: soft, non-tender, non-distended Ext: erythema of the left leg extending from hip down to ankle with edges that are less well-defined than yesterday; no fluctuance; no drainage Skin: warm/well-perfused Neuro: alert, disoriented, no facial droop, no pronator drift; generalized weakness Psych: impaired insight Objective Data Current Medications Generic Name Dose Route Start Last Admin Trade Name Freq PRN Reason Stop Dose Admin Acetaminophen 650 mg 05/15/21 09:04 Acetaminophen 325 Mg Tablet PO Q6H PRN fever/pain Aripiprazole 15 mg 05/16/21 09:00 05/16/21 07:52 Aripiprazole 15 Mg Tablet PO 15 mg DAILY CARRIE Administration Aspirin 81 mg 05/16/21 09:00 05/16/21 07:52 Aspirin Enteric Coated 81 Mg Tablet. PO 81 mg DAILY CARRIE Administration Chlorhexidine Gluconate 15 ml 05/15/21 21:00 05/16/21 07:52 Chlorhexidine Gluc Oral Rinse 15 Ml Mouthwash BUCCAL 15 ml BID CARRIE Administration Docusate Sodium 100 mg 05/15/21 09:15 05/16/21 07:52 Docusate Sodium 100 Mg Capsule PO Not Given BID [facility] Duloxetine HCl 20 mg 05/16/21 09:00 05/16/21 09:48 Duloxetine Hcl 20 Mg Capsule. PO Not Given DAILY CARRIE Enoxaparin Sodium 40 mg 05/15/21 10:00 05/16/21 09:48 Enoxaparin Sodium 40 Mg/0.4 Ml Syringe SUBCUT 40 mg Q24H CARRIE Administration Piperacillin Sod/Tazobactam 50 mls @ 100 mls/hr 05/15/21 09:00 05/16/21 14:42 Sod 2.25 gm/ Sodium Chloride IV 100 mls/hr Q6H CARRIE Administration Vancomycin HCl 1,000 mg/ 270 mls @ 270 mls/hr 05/15/21 10:00 05/16/21 11:34 Sodium Chloride IV Infused Q24H CARRIE Infusion Insulin Human Lispro 0 unit 05/15/21 13:30 05/16/21 11:50 Insulin Lispro 100 Unit/Ml 3 Ml Vial SUBCUT 4 unit QIDACHS [facility] Administration Protocol Levothyroxine Sodium 100 mcg 05/16/21 06:30 05/16/21 06:26 Levothyroxine Sodium 100 Mcg Tablet PO 100 mcg DAILY@0630 CARRIE Administration Lorazepam 0.5 mg 05/15/21 18:00 05/15/21 18:14 Lorazepam 0.5 Mg Tablet PO Not Given DAILY@1800 [facility] Metoprolol Tartrate 25 mg 05/15/21 21:00 05/16/21 07:51 Metoprolol Tartrate 25 Mg Tablet PO 25 mg BID CARRIE Administration Protocol Ondansetron HCl 4 mg 05/15/21 09:01 Ondansetron Hcl 4 Mg/2 Ml Vial IVPUSH Q6H PRN nausea/vomitingadd Pharmacy Consult 1 each 05/15/21 07:16 Consult Rx Perform Med Rec MISCELLANE ONCE PRN Consult order Polyethylene Glycol 17 gm 05/15/21 09:01 Polyethylene Glycol 3350 17 Gm Powd.Pack PO DAILY PRN constipation Senna 17.2 mg 05/15/21 21:00 05/15/21 20:31 Sennosides 8.6 Mg Tablet PO 17.2 mg BEDTIME CARRIE Administration Sodium Chloride 3 ml 05/15/21 16:00 05/16/21 14:45 0.9 % Sodium Chloride Flush 3 Ml Syringe IVFLUSH 3 ml QSHIFT CARRIE Administration Trazodone HCl 25 mg 05/15/21 21:00 05/15/21 20:31 Trazodone Hcl 25 Mg Halftab PO 25 mg BEDTIME CARRIE Administration Valproic Acid 500 mg 05/16/21 09:00 05/16/21 09:48 Valproic Acid (As Sodium Salt) 250 Mg/5 Ml Solution PO 500 mg BID CARRIE Administration Labs CBC & Chem 7: 05/16/21 04:20 05/16/21 04:20 Labs: Laboratory Results - last 24 hr 05/15/21 05/15/21 05/16/21 17:36 21:10 04:20 MCV 100.0 H MCH 31.6 MCHC 31.6 RDW 14.4 Plt Count 75 L MPV 12.8 H Absolute Nucleated RBC 0.000 Nucleated RBC % (auto) 0.0 Anion Gap Estim Creat Clear Calc Estimated GFR POC Glucose 378 H* 273 H Random Glucose Lactic Acid Lactic Acid Fup @ 2Hr Calcium Magnesium 05/16/21 05/16/21 05/16/21 04:20 07:27 08:47 MCV MCH MCHC RDW Plt Count MPV Absolute Nucleated RBC Nucleated RBC % (auto) Anion Gap 14 Estim Creat Clear Calc 40.0 Estimated GFR 37 POC Glucose 110 Random Glucose 128 H D Lactic Acid 2.9 H* Lactic Acid Fup @ 2Hr Calcium 8.3 L Magnesium 2.2 05/16/21 05/16/21 11:11 11:59 MCV MCH MCHC RDW Plt Count MPV Absolute Nucleated RBC Nucleated RBC % (auto) Anion Gap Estim Creat Clear Calc Estimated GFR POC Glucose 207 H Random Glucose Lactic Acid Lactic Acid Fup @ 2Hr 3.7 H* Calcium Magnesium Microbiology Microbiology Results: Microbiology 05/15/21 04:59 Blood Culture - Preliminary Blood - Venous No growth after 24 hours. 05/15/21 04:59 Blood Culture - Preliminary Blood - Venous No growth after 24 hours. 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 d#2 of vancomycin + piperacillin/tazobactam; follow blood cultures.? ID consultation when available. # AF/RVR - rate-controlled on metoprolol - continue ASA; not on full AC due to fall risk - TTE pending # septic encephalopathy - improving to baseline mental status, which is impaired by dementia # SHREYAS - likely septic ATN; improving. avoid nephrotoxins and monitor BMP # thrombocytopenia - likely due to sepsis; continue to monitor CBC kisha while on LMWH # HTN - continue metoprolol as above. # schizoaffective disorder - continue valproate, aripiprazole, duloxetine, lorazepam and trazodone # dementia, vascular - continue psychiatric medications as above; frequent re-orientation # hypothyroidism - continue LT4 # DM2, A1c 7.1 - POC BG + correction-dose lispro; hold MTF # VTE ppx - LMWH (2) SHREYAS (acute kidney injury): Status: Acute Quality Stroke Does the patient have a stroke diagnosis?: No VTE Prior VTE?: No VTE Risk Level:: Medical - moderate - high VTE Device Contraindication: N/A - Device Ordered VTE Drug Contraindication: N/A - Med Ordered
[2021-05-16 16:16] LABS: Glucose, Whole Blood 214 mg/dL (60-115)
[2021-05-16] MEDS: LORazepam 0.5 MG TABLET PO (17:26)
[2021-05-16 20:21] LABS: Glucose, Whole Blood 189 mg/dL (60-115)
[2021-05-16] MEDS: traZODone HCL 25 MG HALFTAB PO (21:02)
[2021-05-16] MEDS: Sennosides 8.6 MG TABLET 17.2 MG PO (21:02)
[2021-05-16] MEDS: Docusate Sodium 100 MG CAPSULE PO (21:23)
[2021-05-17] VITALS (8 sets, daily range): BP systolic 104–131; BP diastolic 53–87; PULSE 79–106; RESP 18–20; TEMP 36.1–36.6; O2SAT 97–100
[2021-05-17] MEDS: Piperacillin Sodium/Tazobactam 2.25 GM in 0.9 % Sodium Chloride 50 ML IV ×4 (03:42→22:01)
[2021-05-17] MEDS: Levothyroxine Sodium 100 MCG TABLET PO (05:21)
[2021-05-17 07:03] LABS: Glucose, Whole Blood 178 mg/dL (60-115)
[2021-05-17 07:27] LABS: Anion Gap 18 (12-20); Blood Urea Nitrogen 39 mg/dL (9-16); Calcium 8.4 mg/dL (8.4-10.2); Carbon Dioxide 19 mmol/L (22-29); Chloride 107 mmol/L (96-108); Creatinine Clr Calc Pharmacy 62.5; Estimated Glomerular Filt Rate > 60; Glucose Random 166 mg/dL (60-115); Sodium 140 mmol/L (135-145)
[2021-05-17 07:57] LABS: Hematocrit 34.5 % (37-47); Hemoglobin 11.7 g/dl (12.0-16.0); Mean Corpuscular HGB Conc 33.9 g/dl (31.0-35.0); Mean Corpuscular Hemoglobin 32.9 pg (27.0-33.0); Mean Corpuscular Volume 96.9 fL (80-98); NRBC Pct Auto 0.2 /100WBC (0.0-0.2); Red Blood Count 3.56 X10*6/uL (4.20-5.50); Red Cell Distribution Width 14.5 % (11.0-16.0); White Blood Count 11.6 X10*3/uL (4.8-10.8)
[2021-05-17 07:58] LABS: PLT ABN DIST 1; Platelet Count 105 X10*3/uL (160-400)
[2021-05-17 09:30] LABS: Vancomycin Trough 8.8 mcg/mL (10.0-20.0)
[2021-05-17] MEDS: DULoxetine HCl 20 MG CAPSULE.DR PO (09:47)
[2021-05-17] MEDS: Enoxaparin Sodium 40 MG/0.4 ML SYRINGE SUBCUT (09:47)
[2021-05-17] MEDS: Aspirin Enteric Coated 81 MG TABLET.DR PO (09:47)
[2021-05-17] MEDS: Insulin Lispro 100 UNIT/ML 3 ML VIAL SUBCUT ×3 (09:47→22:00)
[2021-05-17] MEDS: Chlorhexidine Gluc Oral Rinse 15 ML MOUTHWASH BUCCAL ×2 (09:47→22:00)
[2021-05-17] MEDS: 0.9 % Sodium Chloride Flush 3 ML SYRINGE IVFLUSH ×3 (09:47→22:21)
[2021-05-17] MEDS: ARIPiprazole 15 MG TABLET PO (09:47)
[2021-05-17] MEDS: Metoprolol Tartrate 25 MG TABLET PO ×2 (09:48→22:04)
[2021-05-17] MEDS: Docusate Sodium 100 MG CAPSULE PO ×2 (09:48→22:00)
[2021-05-17 10:57] LABS: Glucose, Whole Blood 230 mg/dL (60-115)
[2021-05-17] MEDS: vancomycin HCL 1,250 MG in 0.9 % Sodium Chloride 250 ML 166.67 MG IV (11:10)
--- NOTE | 2021-05-17 11:49 | MHC.SL.SWA ---
Speech Pathologist Impression: Risk of Aspiration Oral Phase Dysphagia Risk of Aspiration Due to: Poor PO Intake Reduced Cognition Dysphasia Diet Status: No Change Liquid Consistency and Strategies for Safe Swallow: Liquid Intake Recommendation: [place] Thick Liquid Intake Strategies: Small Sips No Straws Solid Food Consistency: Dietary Recommendations: Pureed (NDD1) Oral Medication Intake: Crushed with Puree Compensatory Strategies and Precautions to be Taken for Safe Swallow: Sitting Upright (90 deg) No Straw Liquids from Cup Small Bites and Sips Alternate Liquids/Solids Oral Check Supervision While Eating and Drinking for Safe Swallow: Total Assistance Swallowing Recommended Treatments: Compens. Strategy Educat. Recommendation for Speech: Inpatient Speech Therapy Comment: ESTIMATE CLERK will continue to follow during hospitalization. Student Support Counselor Clinican/Clinical Fellow: No Supervisory Statement: I have reviewed and agree with the student/clinical fellow's documentation: N/A Speech Language Pathologist: Jelly Mena M.A., CCC-ESTIMATE CLERK
--- NOTE | 2021-05-17 15:11 | HO.PM.IMPN ---
Subjective Subjective Date of Service: 05/17/21 Interval History: Patient is somnolent but arousable, has underlying dementia, unable to provide detail history, say yes to pain, no acute overnight issues. Review of Systems Unable to obtain due to dementia Physical Exam Vital Signs: Vital Signs: Last Vital Signs Temp 97.5 F 05/17/21 15:03 Pulse 101 H 05/17/21 15:03 Resp 20 05/17/21 15:03 BP 122/65 05/17/21 15:03 Pulse Ox 98 05/17/21 15:03 Body Mass Index 32.8 Const: Other: Gen: Somnolent but easily arousable HEENT: sclera anicteric, moist oropharynx Neck: supple,no jvd Lungs: clear to auscultation bilaterally Heart: irregularly irregular, no murmurs Abd: soft, non-tender, non-distended Ext: erythema of the left leg extending from hip down to ankle ,no fluctuance; no drainage Skin: warm/well-perfused Neuro: alert, disoriented, no facial droop, no pronator drift; generalized weakness Psych: impaired insight Objective Data Current Medications Generic Name Dose Route Start Last Admin Trade Name Freq PRN Reason Stop Dose Admin Acetaminophen 650 mg 05/15/21 09:04 Acetaminophen 325 Mg Tablet PO Q6H PRN fever/pain Aripiprazole 15 mg 05/16/21 09:00 05/17/21 09:47 Aripiprazole 15 Mg Tablet PO 15 mg DAILY CARRIE Administration Aspirin 81 mg 05/16/21 09:00 05/17/21 09:47 Aspirin Enteric Coated 81 Mg Tablet. PO 81 mg DAILY CARRIE Administration Chlorhexidine Gluconate 15 ml 05/15/21 21:00 05/17/21 09:47 Chlorhexidine Gluc Oral Rinse 15 Ml Mouthwash BUCCAL 15 ml BID CARRIE Administration Docusate Sodium 100 mg 05/15/21 09:15 05/17/21 09:48 Docusate Sodium 100 Mg Capsule PO 100 mg BID CARRIE Administration Duloxetine HCl 20 mg 05/16/21 09:00 05/17/21 09:47 Duloxetine Hcl 20 Mg Capsule. PO 20 mg DAILY CARRIE Administration Enoxaparin Sodium 40 mg 05/15/21 10:00 05/17/21 09:47 Enoxaparin Sodium 40 Mg/0.4 Ml Syringe SUBCUT 40 mg Q24H CARRIE Administration Piperacillin Sod/Tazobactam 50 mls @ 100 mls/hr 05/15/21 09:00 05/17/21 10:57 Sod 2.25 gm/ Sodium Chloride IV Infused Q6H CARRIE Infusion Vancomycin HCl 1,250 mg/ 250 mls @ 166.667 mls/hr 05/17/21 10:00 05/17/21 12:54 Sodium Chloride IV Infused Q24H CARRIE Infusion Insulin Human Lispro 0 unit 05/15/21 13:30 05/17/21 11:11 Insulin Lispro 100 Unit/Ml 3 Ml Vial SUBCUT Not Given QIDACHS [facility] Protocol Levothyroxine Sodium 100 mcg 05/16/21 06:30 05/17/21 05:21 Levothyroxine Sodium 100 Mcg Tablet PO 100 mcg DAILY@0630 CARRIE Administration Lorazepam 0.5 mg 05/15/21 18:00 05/16/21 17:26 Lorazepam 0.5 Mg Tablet PO 0.5 mg DAILY@1800 CARRIE Administration Metoprolol Tartrate 25 mg 05/15/21 21:00 05/17/21 09:48 Metoprolol Tartrate 25 Mg Tablet PO 25 mg BID CARRIE Administration Protocol Ondansetron HCl 4 mg 05/15/21 09:01 Ondansetron Hcl 4 Mg/2 Ml Vial IVPUSH Q6H PRN nausea/vomitingadd Pharmacy Consult 1 each 05/15/21 07:16 Consult Rx Perform Med Rec MISCELLANE ONCE PRN Consult order Polyethylene Glycol 17 gm 05/15/21 09:01 Polyethylene Glycol 3350 17 Gm Powd.Pack PO DAILY PRN constipation Senna 17.2 mg 05/15/21 21:00 05/16/21 21:02 Sennosides 8.6 Mg Tablet PO 17.2 mg BEDTIME CARRIE Administration Sodium Chloride 3 ml 05/15/21 16:00 05/17/21 09:47 0.9 % Sodium Chloride Flush 3 Ml Syringe IVFLUSH 3 ml QSHIFT CARRIE Administration Trazodone HCl 25 mg 05/15/21 21:00 05/16/21 21:02 Trazodone Hcl 25 Mg Halftab PO 25 mg BEDTIME CARRIE Administration Valproic Acid 500 mg 05/16/21 09:00 05/17/21 09:48 Valproic Acid (As Sodium Salt) 250 Mg/5 Ml Solution PO 500 mg BID CARRIE Administration Labs CBC & Chem 7: 05/17/21 05:28 05/17/21 05:28 Labs: Laboratory Results - last 24 hr 05/16/21 05/16/21 05/17/21 16:12 20:15 05:28 MCV 96.9 MCH 32.9 MCHC 33.9 RDW 14.5 Plt Count 105 L D MPV Not Reportable Absolute Nucleated RBC 0.020 H Nucleated RBC % (auto) 0.2 Anion Gap Estim Creat Clear Calc Estimated GFR POC Glucose 214 H 189 H Random Glucose Calcium Vancomycin Trough 05/17/21 05/17/21 05/17/21 05:28 06:59 08:44 MCV MCH MCHC RDW Plt Count MPV Absolute Nucleated RBC Nucleated RBC % (auto) Anion Gap 18 Estim Creat Clear Calc 62.5 Estimated GFR > 60 POC Glucose 178 H Random Glucose 166 H Calcium 8.4 Vancomycin Trough 8.8 L 05/17/21 10:53 MCV MCH MCHC RDW Plt Count MPV Absolute Nucleated RBC Nucleated RBC % (auto) Anion Gap Estim Creat Clear Calc Estimated GFR POC Glucose 230 H Random Glucose Calcium Vancomycin Trough Microbiology Microbiology Results: Microbiology 05/15/21 04:59 Blood Culture - Preliminary Blood - Venous No growth after 48 hours. 05/15/21 04:59 Blood Culture - Preliminary Blood - Venous No growth after 48 hours. Assessment and Plan (1) Severe sepsis: Status: Acute (2) Cellulitis: Status: Acute (3) SHREYAS (acute kidney injury): Status: Acute (4) Hypertension: Status: Acute Assessment and Plan: 75 year-old female long-term care resident of [facility] with a history of recurrent sepsis from lower extremity cellulitis with bacteremia, atrial fibrillation, vascular dementia, and schizoaffective disorder presenting with worsening lethargy with LLE cellulitis, failed outpatient doxycycline admitted with severe sepsis and SHREYAS # ?severe sepsis from LLE cellulitis/erysipelas - persistent redness and pain d# 3 of vancomycin + piperacillin/tazobactam, history of 3 prior episodes of bacteremia and cellulitis, will follow blood cultures. Await ID input, follow CBC and clinical course closely. # AF/RVR - rate-controlled on metoprolol, continue ASA; not on full AC due to fall risk, transthoracic echocardiogram showed preserved EF 60-65%, no wall motion abnormalities, diastolic function is indeterminate no valvular disease noted # septic encephalopathy - seems to be at baseline baseline mental status, which is impaired by dementia # SHREYAS - likely due to sepsis, creatinine normalized with IV fluid # thrombocytopenia - likely due to sepsis; platelet count improved, continue to monitor CBC while on LMWH # HTN - continue metoprolol as above, BP stable # schizoaffective disorder - continue valproate, aripiprazole, duloxetine, lorazepam and trazodone # dementia, vascular - continue psychiatric medications as above; frequent re-orientation # hypothyroidism - continue LT4 # DM2, A1c 7.1 - blood sugar fluctuating, continue to follow POC BG + correction-dose lispro; hold MTF # VTE ppx - LMWH Quality Stroke Does the patient have a stroke diagnosis?: No VTE Prior VTE?: No VTE Risk Level:: Medical - moderate - high VTE Device Contraindication: N/A - Device Ordered VTE Drug Contraindication: N/A - Med Ordered
[2021-05-17 16:04] LABS: Glucose, Whole Blood 187 mg/dL (60-115)
--- NOTE | 2021-05-17 16:32 | PC.NURSE ---
Skin/wound assessment completed today. Patient has cellulitis on left leg up to lateral buttock, red and warm. Stage 2 to coccyx with surrounding redness. Xeroform to stage 2 pressure injury with epc cream around covered with foam dressing. Patient also has deep tissue injury to left heel. Bootie applied to foot. Right heel elevated on pillow to prevent any pressure wound to heel. All wounds present on admission.
[2021-05-17] MEDS: LORazepam 0.5 MG TABLET PO (17:58)
[2021-05-17 20:27] LABS: Glucose, Whole Blood 289 mg/dL (60-115)
[2021-05-17 21:41] LABS: Glucose, Whole Blood 277 mg/dL (60-115)
[2021-05-17] MEDS: traZODone HCL 25 MG HALFTAB PO (22:00)
[2021-05-17] MEDS: Sennosides 8.6 MG TABLET 17.2 MG PO (22:07)
[2021-05-18] VITALS (10 sets, daily range): BP systolic 72–142; BP diastolic 46–78; PULSE 80–99; RESP 15–20; TEMP 36.1–37; O2SAT 93–100
[2021-05-18] MEDS: Piperacillin Sodium/Tazobactam 2.25 GM in 0.9 % Sodium Chloride 50 ML IV ×4 (03:57→22:06)
[2021-05-18 06:08] LABS: NRBC Pct Auto 0.2 /100WBC (0.0-0.2); PLT CLUMP 1
[2021-05-18 06:10] LABS: Hematocrit 30.9 % (37-47); Hemoglobin 10.2 g/dl (12.0-16.0); Mean Corpuscular Hemoglobin 32.8 pg (27.0-33.0); Mean Corpuscular Volume 99.4 fL (80-98); Red Blood Count 3.11 X10*6/uL (4.20-5.50); Red Cell Distribution Width 14.9 % (11.0-16.0); White Blood Count 8.9 X10*3/uL (4.8-10.8)
[2021-05-18] MEDS: Levothyroxine Sodium 100 MCG TABLET PO (06:29)
[2021-05-18 07:20] LABS: Band Neutrophils Percent 6 % (3-5); Eosinophils Absolute Manual 0.1 X10*3/UL (0.0-0.8); Eosinophils Percent Manual 1 % (0-4); Lymphocytes Absolute Manual 1.1 X10*3/uL (0.6-4.8); Lymphocytes Percent Manual 12 % (20-40); Monocytes Percent Manual 11 % (2-11); Neutrophils Absolute Manual 6.8 X10*3/uL (2.2-7.9); Neutrophils Percent Manual 70 % (45-73); Platelet Estimate DECREASED (NORMAL); Platelet Morphology Comment NORMAL
[2021-05-18 07:21] LABS: RBC Morphology NOTED; Toxic Vacuolation PRESENT
[2021-05-18 07:22] LABS: Burr Cells 1+ (0-2) /OIF; Macrocytosis 1+ (5-14) /OIF; Polychromasia 1+ (0-2) /OIF
[2021-05-18 07:23] LABS: Platelet Count 96 X10*3/uL (160-400)
[2021-05-18 07:48] LABS: Glucose, Whole Blood 183 mg/dL (60-115)
[2021-05-18] MEDS: 0.9 % Sodium Chloride Flush 3 ML SYRINGE IVFLUSH ×2 (08:00→14:42)
[2021-05-18] MEDS: Insulin Lispro 100 UNIT/ML 3 ML VIAL SUBCUT ×4 (08:00→22:05)
[2021-05-18] MEDS: Aspirin Enteric Coated 81 MG TABLET.DR PO (09:14)
[2021-05-18] MEDS: DULoxetine HCl 20 MG CAPSULE.DR PO (09:14)
[2021-05-18] MEDS: ARIPiprazole 15 MG TABLET PO (09:14)
[2021-05-18] MEDS: Metoprolol Tartrate 25 MG TABLET PO (09:14)
[2021-05-18] MEDS: Chlorhexidine Gluc Oral Rinse 15 ML MOUTHWASH BUCCAL ×2 (09:14→22:05)
[2021-05-18] MEDS: Docusate Sodium 100 MG CAPSULE PO ×2 (09:14→22:05)
[2021-05-18] MEDS: Enoxaparin Sodium 40 MG/0.4 ML SYRINGE SUBCUT (09:15)
--- NOTE | 2021-05-18 09:26 | MHC.SL.SWA ---
Speech Pathologist Impression: Risk of Aspiration Oral Phase Dysphagia Risk of Aspiration Due to: Poor PO Intake Reduced Cognition Dysphasia Diet Status: No Change Liquid Consistency and Strategies for Safe Swallow: Liquid Intake Recommendation: [place] Thick Liquid Intake Strategies: Small Sips No Straws Solid Food Consistency: Dietary Recommendations: Pureed (NDD1) Oral Medication Intake: Crushed with Puree Compensatory Strategies and Precautions to be Taken for Safe Swallow: Sitting Upright (90 deg) No Straw Liquids from Cup Small Bites and Sips Alternate Liquids/Solids Oral Check Supervision While Eating and Drinking for Safe Swallow: Total Assistance Swallowing Recommended Treatments: Compens. Strategy Educat. Recommendation for Speech: Inpatient Speech Therapy Comment: MANUFACTURING ELECTRICIAN will continue to follow during hospitalization. Standards Analyst Clinican/Clinical Fellow: No Supervisory Statement: I have reviewed and agree with the student/clinical fellow's documentation: N/A Speech Language Pathologist: Jelly Mena M.A., CCC-MANUFACTURING ELECTRICIAN
[2021-05-18] MEDS: vancomycin HCL 1,250 MG in 0.9 % Sodium Chloride 250 ML 166.7 MG IV (10:32)
[2021-05-18 11:15] LABS: Glucose, Whole Blood 175 mg/dL (60-115)
[2021-05-18] MEDS: oxyCODONE HCl Immed Release 5 MG TABLET PO (11:50)
[2021-05-18 12:18] LABS: Creatinine Clr Calc Pharmacy 71.2; Estimated Glomerular Filt Rate > 60
--- NOTE | 2021-05-18 12:19 | MHC.CLN ---
F/U VARIABLE PO INTAKE DIET RX: 2000DM PUREED WITH NT LIQ-APPROPRIATE BRAKE LININGS COATER CONTINUES TO REC PUREED WITH NT LIQ PT RECEIVING GLUCERNA AND JAYDEN TO PROMOTE WOUND HEALING SUPPLEMENTS TO PROVIDE 634KCALS, 25G PROTEIN CONTINUE TO MONITOR PO INTAKE CLOSELY
--- NOTE | 2021-05-18 13:09 | HO.PM.IMPN ---
Subjective Subjective Date of Service: 05/18/21 Interval History: Patient awake alert, complaining of left leg pain, eating well, no acute issues overnight no fever, no chills. 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 Somnolent bu t easily arousable HEENT: sclera ani cteric, moist orop harynx Neck: suppl e,no jvd Lungs: cl ear to auscultatio n bilaterally Hear t: irregularly irr egular, no murmurs Abd: soft, non-te nder, non-distende d Ext: erythema of the left leg exte nding from hip tania n to ankle ,no flu ctuance; no draina ge No significant improvement in meir thema. Skin: warm/ well-perfused Neur o: alert, disorien isabel, no facial joanne op, no pronator dr ift; generalized w eakness Psych: imp aired insight Objective Data Current Medications Generic Name Dose Route Start Last Admin Trade Name Freq PRN Reason Stop Dose Admin Acetaminophen 650 mg 05/15/21 09:04 Acetaminophen 325 Mg Tablet PO Q6H PRN fever/pain Aripiprazole 15 mg 05/16/21 09:00 05/18/21 09:14 Aripiprazole 15 Mg Tablet PO 15 mg DAILY CARRIE Administration Aspirin 81 mg 05/16/21 09:00 05/18/21 09:14 Aspirin Enteric Coated 81 Mg Tablet. PO 81 mg DAILY CARRIE Administration Chlorhexidine Gluconate 15 ml 05/15/21 21:00 05/18/21 09:14 Chlorhexidine Gluc Oral Rinse 15 Ml Mouthwash BUCCAL 15 ml BID CARRIE Administration Docusate Sodium 100 mg 05/15/21 09:15 05/18/21 09:14 Docusate Sodium 100 Mg Capsule PO 100 mg BID CARRIE Administration Duloxetine HCl 20 mg 05/16/21 09:00 05/18/21 09:14 Duloxetine Hcl 20 Mg Capsule.Dr PO 20 mg DAILY CARRIE Administration Enoxaparin Sodium 40 mg 05/15/21 10:00 05/18/21 09:15 Enoxaparin Sodium 40 Mg/0.4 Ml Syringe SUBCUT 40 mg Q24H CARRIE Administration Piperacillin Sod/Tazobactam 50 mls @ 100 mls/hr 05/15/21 09:00 05/18/21 10:30 Sod 2.25 gm/ Sodium Chloride IV Infused Q6H CARRIE Infusion Vancomycin HCl 1,250 mg/ 250 mls @ 166.667 mls/hr 05/17/21 10:00 05/18/21 12:04 Sodium Chloride IV Infused Q24H CARRIE Infusion Insulin Human Lispro 0 unit 05/15/21 13:30 05/18/21 11:28 Insulin Lispro 100 Unit/Ml 3 Ml Vial SUBCUT 2 unit QIDACHS CARRIE Administration Protocol Levothyroxine Sodium 100 mcg 05/16/21 06:30 05/18/21 06:29 Levothyroxine Sodium 100 Mcg Tablet PO 100 mcg DAILY@0630 CARRIE Administration Lorazepam 0.5 mg 05/15/21 18:00 05/17/21 17:58 Lorazepam 0.5 Mg Tablet PO 0.5 mg DAILY@1800 CARRIE Administration Metoprolol Tartrate 25 mg 05/15/21 21:00 05/18/21 09:14 Metoprolol Tartrate 25 Mg Tablet PO 25 mg BID CARRIE Administration Protocol Ondansetron HCl 4 mg 05/15/21 09:01 Ondansetron Hcl 4 Mg/2 Ml Vial IVPUSH Q6H PRN nausea/vomitingadd Oxycodone HCl 5 mg 05/18/21 11:26 05/18/21 11:50 Oxycodone Hcl Immed Release 5 Mg Tablet PO 5 mg Q6H PRN Administration Pain, Severe (Pain Scale 7-10) Pharmacy Consult 1 each 05/15/21 07:16 Consult Rx Perform Med Rec MISCELLANE ONCE PRN Consult order Polyethylene Glycol 17 gm 05/15/21 09:01 Polyethylene Glycol 3350 17 Gm Powd.Pack PO DAILY PRN constipation Senna 17.2 mg 05/15/21 21:00 05/17/21 22:07 Sennosides 8.6 Mg Tablet PO 17.2 mg BEDTIME CARRIE Administration Sodium Chloride 3 ml 05/15/21 16:00 05/18/21 08:00 0.9 % Sodium Chloride Flush 3 Ml Syringe IVFLUSH 3 ml QSHIFT CARRIE Administration Trazodone HCl 25 mg 05/15/21 21:00 05/17/21 22:00 Trazodone Hcl 25 Mg Halftab PO 25 mg BEDTIME CARRIE Administration Valproic Acid 500 mg 05/16/21 09:00 05/18/21 09:15 Valproic Acid (As Sodium Salt) 250 Mg/5 Ml Solution PO 500 mg BID CARRIE Administration Labs CBC & Chem 7: 05/18/21 05:06 05/18/21 11:39 Labs: Laboratory Results - last 24 hr 05/17/21 05/17/21 05/17/21 15:57 20:21 21:36 MCV MCH MCHC RDW Plt Count MPV Immature Gran % (Auto) Neut % (Auto) Lymph % (Auto) [place] % (Auto) Eos % (Auto) Baso % (Auto) Lymph # (Auto) [place] # (Auto) Eos # (Auto) Baso # (Auto) Abs Immat Gran (auto) Absolute Neuts (auto) Absolute Nucleated RBC Nucleated RBC % (auto) Neutrophils % (Manual) Band Neutrophils % Lymphocytes % (Manual) Monocytes % (Manual) Eosinophils % (Manual) Abs Neuts (Manual) Lymphocytes # (Manual) Monocytes # (Manual) Eosinophils # (Manual) Toxic Vacuolation Platelet Estimate Plt Morphology Comment RBC Morphology Polychromasia Macrocytosis Kirsten Cells Estim Creat Clear Calc Estimated GFR POC Glucose 187 H 289 H 277 H 05/18/21 05/18/21 05/18/21 05:06 06:58 11:11 MCV 99.4 H MCH 32.8 MCHC 33.0 RDW 14.9 Plt Count 96 L MPV Not Reportable Immature Gran % (Auto) Cancelled Neut % (Auto) Cancelled Lymph % (Auto) Cancelled [place] % (Auto) Cancelled Eos % (Auto) Cancelled Baso % (Auto) Cancelled Lymph # (Auto) Cancelled [place] # (Auto) Cancelled Eos # (Auto) Cancelled Baso # (Auto) Cancelled Abs Immat Gran (auto) Cancelled Absolute Neuts (auto) Cancelled Absolute Nucleated RBC 0.020 H Nucleated RBC % (auto) 0.2 Neutrophils % (Manual) 70 Band Neutrophils % 6 H Lymphocytes % (Manual) 12 L Monocytes % (Manual) 11 Eosinophils % (Manual) 1 Abs Neuts (Manual) 6.8 Lymphocytes # (Manual) 1.1 Monocytes # (Manual) 1.0 Eosinophils # (Manual) 0.1 Toxic Vacuolation PRESENT Platelet Estimate DECREASED Plt Morphology Comment NORMAL RBC Morphology NOTED Polychromasia 1+ (0-2) Macrocytosis 1+ (5-14) Kirsten Cells 1+ (0-2) Estim Creat Clear Calc Estimated GFR POC Glucose 183 H 175 H 05/18/21 11:39 MCV MCH MCHC RDW Plt Count MPV Immature Gran % (Auto) Neut % (Auto) Lymph % (Auto) [place] % (Auto) Eos % (Auto) Baso % (Auto) Lymph # (Auto) [place] # (Auto) Eos # (Auto) Baso # (Auto) Abs Immat Gran (auto) Absolute Neuts (auto) Absolute Nucleated RBC Nucleated RBC % (auto) Neutrophils % (Manual) Band Neutrophils % Lymphocytes % (Manual) Monocytes % (Manual) Eosinophils % (Manual) Abs Neuts (Manual) Lymphocytes # (Manual) Monocytes # (Manual) Eosinophils # (Manual) Toxic Vacuolation Platelet Estimate Plt Morphology Comment RBC Morphology Polychromasia Macrocytosis Kirsten Cells Estim Creat Clear Calc 71.2 Estimated GFR > 60 POC Glucose Microbiology Microbiology Results: Microbiology 05/17/21 05:28 Blood Culture - Preliminary Blood - Venous No growth after 24 hours. 05/17/21 05:28 Blood Culture - Preliminary Blood - Venous No growth after 24 hours. Assessment and Plan (1) Severe sepsis: Status: Acute (2) Cellulitis: Status: Acute Assessment and Plan: 75 year-old female long-term care resident of [facility] with a history of recurrent sepsis from lower extremity cellulitis with bacteremia, atrial fibrillation, vascular dementia, and schizoaffective disorder presenting with worsening lethargy with LLE cellulitis, failed outpatient doxycycline admitted with severe sepsis and SHREYAS # ?severe sepsis from LLE cellulitis/erysipelas - persistent redness and pain d# 4 of vancomycin + piperacillin/tazobactam, history of 3 prior episodes of bacteremia and cellulitis, blood cultures x2 negative ? WBC normalized, elevated bands,no fever, will add oxycodone for pain control, recommend frequent position change. Adjust dose of vancomycin, follow renal function. # AF/RVR - rate-controlled on metoprolol, continue ASA; not on full AC due to fall risk, transthoracic echocardiogram showed preserved EF 60-65%, no wall motion abnormalities, diastolic function is indeterminate ?? no valvular disease noted # septic encephalopathy - confusion and lethargy resolved, seems to be at baseline mental status, has baseline dementia but answering questions appropriately # SHREYAS - likely due to sepsis, creatinine normalized with IV fluid. # thrombocytopenia - likely due to sepsis; platelet count improved, continue to monitor CBC while on LMWH # HTN - continue metoprolol as above, BP stable # schizoaffective disorder - continue valproate, aripiprazole, duloxetine, lorazepam and trazodone # dementia, vascular - continue psychiatric medications as above; frequent re-orientation # hypothyroidism - continue LT4 # DM2, A1c 7.1 - blood sugar improving, continue to follow POC + correction-dose lispro; hold MTF # VTE ppx - LMWH Quality Stroke Does the patient have a stroke diagnosis?: No VTE Prior VTE?: No VTE Risk Level:: Medical - moderate - high VTE Device Contraindication: N/A - Device Ordered VTE Drug Contraindication: N/A - Med Ordered
--- NOTE | 2021-05-18 15:39 | MHC.CM.PN ---
Female 75 DX Sepsis Patient making slow progress per MD rounds. DP return to [facility] via BLS
[2021-05-18 16:20] LABS: Glucose, Whole Blood 159 mg/dL (60-115)
[2021-05-18] MEDS: LORazepam 0.5 MG TABLET PO (17:12)
[2021-05-18 20:20] LABS: Glucose, Whole Blood 225 mg/dL (60-115)
--- NOTE | 2021-05-18 21:52 | PC.NURSE ---
pt bp at 2100 was 73/48 on automatic bp cuff, manual Right side was 72/46. pt was placed in reverse trendelenburg, and rapid response was called. MD at bedside ordered 1L fluid bolus stat. Sepsis protocol initiated, labs ordered, more fluids ordered, retake bp between fluid changes. pt remains alert to self and place, able to answer questions in mumbles (baseline?). Place on O2 while in reverse trendelenburg due to o2 sat dipping to 90%. While on 2L satting 100%. Will continue to closely monitor patient for any changes. other vitals include 97.4, p 98 rr 20.
[2021-05-18] MEDS: traZODone HCL 25 MG HALFTAB PO (22:05)
[2021-05-18 22:20] LABS: Hemoglobin 9.9 g/dl (12.0-16.0); PLT CLUMP 1
[2021-05-18 22:22] LABS: Hematocrit 30.2 % (37-47); Mean Corpuscular HGB Conc 32.8 g/dl (31.0-35.0); Mean Corpuscular Volume 100.7 fL (80-98); Mean Platelet Volume 11.8 fL (9.4-12.3); Platelet Count 128 X10*3/uL (160-400); Red Cell Distribution Width 14.7 % (11.0-16.0); White Blood Count 9.3 X10*3/uL (4.8-10.8)
[2021-05-18] MEDS: Sennosides 8.6 MG TABLET 17.2 MG PO (22:24)
[2021-05-18 22:46] LABS: Lactic Acid 2.2 mmol/L (0.5-2.0)
[2021-05-18 22:50] LABS: Band Neutrophils Percent 8 % (3-5); Basophils Abs Manual 0.1 X10*3/uL (0.0-0.3); Basophils Percent Manual 1 % (0-1); Eosinophils Absolute Manual 0.3 X10*3/UL (0.0-0.8); Eosinophils Percent Manual 3 % (0-4); Lymphocytes Absolute Manual 1.3 X10*3/uL (0.6-4.8); Lymphocytes Percent Manual 14 % (20-40); Metamyelocytes Absolute 0.2 X10*3/uL; Metamyelocytes Percent 2 %; Microcytosis 1+ (5-14) /OIF; Monocytes Percent Manual 11 % (2-11); Neutrophils Absolute Manual 6.4 X10*3/uL (2.2-7.9); Neutrophils Percent Manual 61 % (45-73); RBC Morphology NOTED
[2021-05-18 22:51] LABS: Platelet Estimate SLIGHTLY DECREASED (NORMAL); Platelet Morphology Comment NORMAL; Tear Drop Cells 1+ (0-2) /OIF
[2021-05-18 22:52] LABS: Burr Cells 1+ (0-2) /OIF; Polychromasia 1+ (0-2) /OIF; Toxic Vacuolation PRESENT
[2021-05-19] VITALS (8 sets, daily range): BP systolic 99–154; BP diastolic 52–74; PULSE 75–98; RESP 18–20; TEMP 35.7–36.8; O2SAT 93–100
[2021-05-19 00:16] LABS: Reflex Lactate? Lactic Acid Added
[2021-05-19 01:03] LABS: ~Lactic Acid-LAB USE ONLY 2.3 mmol/L (0.5-2.0)
[2021-05-19 02:34] LABS: Reflex Lactate? 2 Y
[2021-05-19 03:23] LABS: ~Lactic Acid-LAB USE ONLY 1.8 mmol/L (0.5-2.0)
[2021-05-19] MEDS: Piperacillin Sodium/Tazobactam 2.25 GM in 0.9 % Sodium Chloride 50 ML IV ×2 (04:49→10:36)
--- NOTE | 2021-05-19 06:05 | PM.EVENT ---
Event Note Date of Service: 05/19/21 Event Note: rapid response called overnight due to hypotension. received sepsis fluids. lactic acid elevated, improved with fluids. pt already on abx recultured
[2021-05-19] MEDS: Levothyroxine Sodium 100 MCG TABLET PO (06:44)
[2021-05-19 07:07] LABS: Glucose, Whole Blood 132 mg/dL (60-115)
[2021-05-19 09:55] LABS: Vancomycin Trough 11.1 mcg/mL (10.0-20.0)
[2021-05-19] MEDS: Aspirin Enteric Coated 81 MG TABLET.DR PO (10:16)
[2021-05-19] MEDS: DULoxetine HCl 20 MG CAPSULE.DR PO (10:16)
[2021-05-19] MEDS: 0.9 % Sodium Chloride Flush 3 ML SYRINGE IVFLUSH ×2 (10:16→16:34)
[2021-05-19] MEDS: Docusate Sodium 100 MG CAPSULE PO ×2 (10:17→21:12)
[2021-05-19] MEDS: Enoxaparin Sodium 40 MG/0.4 ML SYRINGE SUBCUT (10:17)
[2021-05-19] MEDS: ARIPiprazole 15 MG TABLET PO (10:17)
[2021-05-19] MEDS: Chlorhexidine Gluc Oral Rinse 15 ML MOUTHWASH BUCCAL ×2 (10:17→21:12)
[2021-05-19] MEDS: Metoprolol Tartrate 25 MG TABLET PO (10:18)
[2021-05-19] MEDS: oxyCODONE HCl Immed Release 5 MG TABLET PO (10:21)
[2021-05-19] MEDS: vancomycin HCL 1,250 MG in 0.9 % Sodium Chloride 250 ML 166.67 MG IV (10:31)
[2021-05-19 11:09] LABS: Glucose, Whole Blood 186 mg/dL (60-115)
[2021-05-19 11:37] LABS: Creatinine Clr Calc Pharmacy 85.5; Estimated Glomerular Filt Rate > 60
[2021-05-19] MEDS: Insulin Lispro 100 UNIT/ML 3 ML VIAL SUBCUT ×3 (12:10→21:13)
--- NOTE | 2021-05-19 13:14 | P.PNIM_ITS ---
Subjective Subjective Date of Service: 05/19/21 Interval History: Resting in bed comfortably, denies pain, wants to talk to son, asking if she is going home today, overnight events reviewed patient was noted to be hypotensive received IV fluids blood pressure improved this morning, no fevers. 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 Awake alert in no acute distress HEENT: sclera anicteric, moist oropharynx Neck: supple,no jvd Lungs: clear to auscultation bilaterally Heart: irregularly irregular, no murmurs Abd: soft, non-tender, non-distended Ext: Improving erythema of the left leg extending from hip down to ankle ,no fluctuance; no drainage Skin: warm/well-perfused Neuro: alert, no facial droop, speech clear Psych: impaired insight Objective Data Current Medications Generic Name Dose Route Start Last Admin Trade Name Dianelys PRN Reason Stop Dose Admin Acetaminophen 650 mg 05/15/21 09:04 Acetaminophen 325 Mg Tablet PO Q6H PRN fever/pain Aripiprazole 15 mg 05/16/21 09:00 05/19/21 10:17 Aripiprazole 15 Mg Tablet PO 15 mg DAILY CARRIE Administration Aspirin 81 mg 05/16/21 09:00 05/19/21 10:16 Aspirin Enteric Coated 81 Mg Tablet. PO 81 mg DAILY CARRIE Administration Chlorhexidine Gluconate 15 ml 05/15/21 21:00 05/19/21 10:17 Chlorhexidine Gluc Oral Rinse 15 Ml Mouthwash BUCCAL 15 ml BID CARRIE Administration Docusate Sodium 100 mg 05/15/21 09:15 05/19/21 10:17 Docusate Sodium 100 Mg Capsule PO 100 mg BID CARRIE Administration Duloxetine HCl 20 mg 05/16/21 09:00 05/19/21 10:16 Duloxetine Hcl 20 Mg Capsule. PO 20 mg DAILY CARRIE Administration Enoxaparin Sodium 40 mg 05/15/21 10:00 05/19/21 10:17 Enoxaparin Sodium 40 Mg/0.4 Ml Syringe SUBCUT 40 mg Q24H CARRIE Administration Piperacillin Sod/Tazobactam 50 mls @ 100 mls/hr 05/15/21 09:00 05/19/21 12:00 Sod 2.25 gm/ Sodium Chloride IV Infused Q6H CARRIE Infusion Vancomycin HCl 1,250 mg/ 250 mls @ 166.667 mls/hr 05/17/21 10:00 05/19/21 12:10 Sodium Chloride IV Infused Q24H CARRIE Infusion Insulin Human Lispro 0 unit 05/15/21 13:30 05/19/21 12:10 Insulin Lispro 100 Unit/Ml 3 Ml Vial SUBCUT 2 unit QIDACHS CARRIE Administration Protocol Levothyroxine Sodium 100 mcg 05/16/21 06:30 05/19/21 06:44 Levothyroxine Sodium 100 Mcg Tablet PO 100 mcg DAILY@0630 CARRIE Administration Lorazepam 0.5 mg 05/15/21 18:00 05/18/21 17:12 Lorazepam 0.5 Mg Tablet PO 0.5 mg DAILY@1800 CARRIE Administration Metoprolol Tartrate 25 mg 05/15/21 21:00 05/19/21 10:18 Metoprolol Tartrate 25 Mg Tablet PO 25 mg BID CARRIE Administration Protocol Ondansetron HCl 4 mg 05/15/21 09:01 Ondansetron Hcl 4 Mg/2 Ml Vial IVPUSH Q6H PRN nausea/vomitingadd Oxycodone HCl 5 mg 05/18/21 11:26 05/19/21 10:21 Oxycodone Hcl Immed Release 5 Mg Tablet PO 5 mg Q6H PRN Administration Pain, Severe (Pain Scale 7-10) Pharmacy Consult 1 each 05/15/21 07:16 Consult Rx Perform Med Rec MISCELLANE ONCE PRN Consult order Polyethylene Glycol 17 gm 05/15/21 09:01 Polyethylene Glycol 3350 17 Gm Powd.Pack PO DAILY PRN constipation Senna 17.2 mg 05/15/21 21:00 05/18/21 22:24 Sennosides 8.6 Mg Tablet PO 17.2 mg BEDTIME CARRIE Administration Sodium Chloride 3 ml 05/15/21 16:00 05/19/21 10:16 0.9 % Sodium Chloride Flush 3 Ml Syringe IVFLUSH 3 ml QSHIFT CARRIE Administration Trazodone HCl 25 mg 05/15/21 21:00 05/18/21 22:05 Trazodone Hcl 25 Mg Halftab PO 25 mg BEDTIME CARRIE Administration Valproic Acid 500 mg 05/16/21 09:00 05/19/21 10:17 Valproic Acid (As Sodium Salt) 250 Mg/5 Ml Solution PO 500 mg BID CARRIE Administration Labs CBC & Chem 7: 05/18/21 22:12 05/19/21 10:57 Labs: Laboratory Results - last 24 hr 05/18/21 05/18/21 05/18/21 16:17 20:14 22:12 MCV 100.7 H MCH 33.0 MCHC 32.8 RDW 14.7 Plt Count 128 L D MPV 11.8 Immature Gran % (Auto) Cancelled Neut % (Auto) Cancelled Lymph % (Auto) Cancelled [place] % (Auto) Cancelled Eos % (Auto) Cancelled Baso % (Auto) Cancelled Lymph # (Auto) Cancelled [place] # (Auto) Cancelled Eos # (Auto) Cancelled Baso # (Auto) Cancelled Abs Immat Gran (auto) Cancelled Absolute Neuts (auto) Cancelled Absolute Nucleated RBC 0.000 Nucleated RBC % (auto) 0.0 Neutrophils % (Manual) 61 Band Neutrophils % 8 H Lymphocytes % (Manual) 14 L Monocytes % (Manual) 11 Eosinophils % (Manual) 3 Basophils % (Manual) 1 Metamyelocytes % 2 Abs Neuts (Manual) 6.4 Lymphocytes # (Manual) 1.3 Monocytes # (Manual) 1.0 Eosinophils # (Manual) 0.3 Basophils # (Manual) 0.1 Metamyelocytes # 0.2 Toxic Vacuolation PRESENT Platelet Estimate SLIGHTLY DECREASED Plt Morphology Comment NORMAL RBC Morphology NOTED Polychromasia 1+ (0-2) Microcytosis 1+ (5-14) Tear Drop Cells 1+ (0-2) [place] Cells 1+ (0-2) Estim Creat Clear Calc Estimated GFR POC Glucose 159 H 225 H Lactic Acid Lactic Acid Fup @ 2Hr Lactic Acid Fup @ 4Hr Vancomycin Trough 05/18/21 05/19/21 05/19/21 22:12 00:31 02:49 MCV MCH MCHC RDW Plt Count MPV Immature Gran % (Auto) Neut % (Auto) Lymph % (Auto) [place] % (Auto) Eos % (Auto) Baso % (Auto) Lymph # (Auto) [place] # (Auto) Eos # (Auto) Baso # (Auto) Abs Immat Gran (auto) Absolute Neuts (auto) Absolute Nucleated RBC Nucleated RBC % (auto) Neutrophils % (Manual) Band Neutrophils % Lymphocytes % (Manual) Monocytes % (Manual) Eosinophils % (Manual) Basophils % (Manual) Metamyelocytes % Abs Neuts (Manual) Lymphocytes # (Manual) Monocytes # (Manual) Eosinophils # (Manual) Basophils # (Manual) Metamyelocytes # Toxic Vacuolation Platelet Estimate Plt Morphology Comment RBC Morphology Polychromasia Microcytosis Tear Drop Cells Kirsten Cells Estim Creat Clear Calc Estimated GFR POC Glucose Lactic Acid 2.2 H* Lactic Acid Fup @ 2Hr 2.3 H* Lactic Acid Fup @ 4Hr 1.8 Vancomycin Trough 05/19/21 05/19/21 05/19/21 06:55 09:09 10:57 MCV MCH MCHC RDW Plt Count MPV Immature Gran % (Auto) Neut % (Auto) Lymph % (Auto) [place] % (Auto) Eos % (Auto) Baso % (Auto) Lymph # (Auto) [place] # (Auto) Eos # (Auto) Baso # (Auto) Abs Immat Gran (auto) Absolute Neuts (auto) Absolute Nucleated RBC Nucleated RBC % (auto) Neutrophils % (Manual) Band Neutrophils % Lymphocytes % (Manual) Monocytes % (Manual) Eosinophils % (Manual) Basophils % (Manual) Metamyelocytes % Abs Neuts (Manual) Lymphocytes # (Manual) Monocytes # (Manual) Eosinophils # (Manual) Basophils # (Manual) Metamyelocytes # Toxic Vacuolation Platelet Estimate Plt Morphology Comment RBC Morphology Polychromasia Microcytosis Tear Drop Cells [place] Cells Estim Creat Clear Calc 85.5 Estimated GFR > 60 POC Glucose 132 H Lactic Acid Lactic Acid Fup @ 2Hr Lactic Acid Fup @ 4Hr Vancomycin Trough 11.1 05/19/21 10:59 MCV MCH MCHC RDW Plt Count MPV Immature Gran % (Auto) Neut % (Auto) Lymph % (Auto) [place] % (Auto) Eos % (Auto) Baso % (Auto) Lymph # (Auto) [place] # (Auto) Eos # (Auto) Baso # (Auto) Abs Immat Gran (auto) Absolute Neuts (auto) Absolute Nucleated RBC Nucleated RBC % (auto) Neutrophils % (Manual) Band Neutrophils % Lymphocytes % (Manual) Monocytes % (Manual) Eosinophils % (Manual) Basophils % (Manual) Metamyelocytes % Abs Neuts (Manual) Lymphocytes # (Manual) Monocytes # (Manual) Eosinophils # (Manual) Basophils # (Manual) Metamyelocytes # Toxic Vacuolation Platelet Estimate Plt Morphology Comment RBC Morphology Polychromasia Microcytosis Tear Drop Cells [place] Cells Estim Creat Clear Calc Estimated GFR POC Glucose 186 H Lactic Acid Lactic Acid Fup @ 2Hr Lactic Acid Fup @ 4Hr Vancomycin Trough Microbiology Microbiology Results: Microbiology 05/17/21 05:28 Blood Culture - Preliminary Blood - Venous No growth after 48 hours. 05/17/21 05:28 Blood Culture - Preliminary Blood - Venous No growth after 48 hours. Assessment and Plan (1) Severe sepsis: Status: Acute (2) Cellulitis: Status: Acute (3) SHREYAS (acute kidney injury): Status: Acute (4) Hypotension: Status: Acute Assessment and Plan: 75 year-old female long-term care resident of [facility] with a history of recurrent sepsis from lower extremity cellulitis with bacteremia, atrial fibrillation, vascular dementia, and schizoaffective disorder presenting with worsening lethargy with LLE cellulitis, failed outpatient doxycycline admitted with severe sepsis and SHREYAS # ?severe sepsis from LLE cellulitis/erysipelas - pain resolved redness is improving, d# 5 of vancomycin + piperacillin/tazobactam, history of 3 prior episodes of bacteremia and cellulitis, blood cultures x2 negative Will DC IV vancomycin, add doxycycline and continue IV Zosyn,check MRSA nares ? WBC normalized, no fever, continue oxycodone for pain control, recommend frequent position change.? Noted to have low blood pressure last night likely due to decreased by mouth intake and use of oxycodone, will reduce dose of metoprolol, blood pressure impr royal with IV hydration will follow repeat blood culture. # AF/RVR - rate-controlled on metoprolol, continue ASA; not on full AC due to fall risk, transthoracic echocardiogram showed preserved EF 60-65%, no wall motion abnormalities, diastolic function is indeterminate ?? no valvular disease noted # septic encephalopathy - confusion and lethargy resolved, seems to be at baseline mental status, has baseline dementia, answering questions appropriately # SHREYAS - likely due to sepsis, creatinine normalized with IV fluid. # thrombocytopenia - likely due to sepsis; platelet count improved, continue to monitor CBC while on LMWH # HTN - noted to have hypotension, improved with IV hydration, continue metoprolol dose lowered to 12.5, follow BP closely # schizoaffective disorder - continue valproate, aripiprazole, duloxetine, lorazepam and trazodone, no behavioral issues noted # dementia, vascular - continue psychiatric medications as above; frequent re-orientation # hypothyroidism - continue LT4 # DM2, A1c 7.1 - blood sugar improving, continue to follow POC + correction-dose lispro; hold MTF # VTE ppx - LMWH Quality Stroke Does the patient have a stroke diagnosis?: No VTE Prior VTE?: No VTE Risk Level:: Medical - moderate - high VTE Device Contraindication: N/A - Device Ordered VTE Drug Contraindication: N/A - Med Ordered
[2021-05-19 14:35] LABS: Glucose, Whole Blood 233 mg/dL (60-115)
--- NOTE | 2021-05-19 14:35 | PC.NURSE ---
Kristine was rounding on pt and saw pt had a big gulp iced drink ~one liter fluoids drink in hand already completely drank. Pt must have had a visitor unseen in room and was given this beverage. Pt is on nectar thick fluids. Pt did cough x1 but not obvious signs of resp distress, or discomfort at this time. pt states she is comfortable. Unknown if drink was coffee vs soda or juice- pt is a diabetic - POC 233. MD notified. Put a sign on pt door stating do not give pt anything to drink or eat before stopping at RN station. Will cont to look out for any visitors and monitor pt resp status
[2021-05-19] MEDS: Doxycycline Hyclate 100 MG in 0.9 % Sodium Chloride 250 ML 166.67 MG IV (14:48)
[2021-05-19 15:52] LABS: Glucose, Whole Blood 231 mg/dL (60-115)
[2021-05-19 16:05] LABS: MRSA Nasal PCR NEGATIVE (Negative); SA Nasal PCR NEGATIVE (Negative)
[2021-05-19] MEDS: Piperacillin Sodium/Tazobactam 3.375 GM in 0.9 % Sodium Chloride 50 ML IV ×2 (16:34→21:13)
[2021-05-19] MEDS: LORazepam 0.5 MG TABLET PO (19:11)
[2021-05-19 20:03] LABS: Glucose, Whole Blood 174 mg/dL (60-115)
[2021-05-19] MEDS: Sennosides 8.6 MG TABLET 17.2 MG PO (21:12)
[2021-05-19] MEDS: Metoprolol Tartrate 12.5 MG HALFTAB PO (21:12)
[2021-05-19] MEDS: traZODone HCL 25 MG HALFTAB PO (21:13)
[2021-05-20] VITALS (8 sets, daily range): BP systolic 114–141; BP diastolic 59–88; PULSE 79–104; RESP 18–20; TEMP 36.3–36.9; O2SAT 97–99
[2021-05-20] MEDS: Doxycycline Hyclate 100 MG in 0.9 % Sodium Chloride 250 ML 166.67 MG IV ×2 (02:25→13:47)
[2021-05-20] MEDS: 0.9 % Sodium Chloride Flush 3 ML SYRINGE IVFLUSH ×4 (02:25→20:51)
--- NOTE | 2021-05-20 04:21 | PC.NURSE ---
Pt has 1.4 second pause around 0420. Asymptomatic. MD notified. no new orders at this time
[2021-05-20] MEDS: Piperacillin Sodium/Tazobactam 3.375 GM in 0.9 % Sodium Chloride 50 ML IV ×4 (04:43→20:51)
[2021-05-20 05:35] LABS: Hematocrit 29.1 % (37-47); Hemoglobin 9.3 g/dl (12.0-16.0); Mean Corpuscular Hemoglobin 32.1 pg (27.0-33.0); Mean Corpuscular Volume 100.3 fL (80-98); Mean Platelet Volume 11.1 fL (9.4-12.3); NRBC Pct Auto 0.3 /100WBC (0.0-0.2); Platelet Count 172 X10*3/uL (160-400); Red Cell Distribution Width 14.7 % (11.0-16.0); White Blood Count 9.5 X10*3/uL (4.8-10.8)
[2021-05-20 06:08] LABS: Anion Gap 10 (12-20); Blood Urea Nitrogen 13 mg/dL (9-16); Calcium 7.7 mg/dL (8.4-10.2); Carbon Dioxide 25 mmol/L (22-29); Chloride 111 mmol/L (96-108); Creatinine Clr Calc Pharmacy 88.2; Estimated Glomerular Filt Rate > 60; Glucose Random 129 mg/dL (60-115); Potassium 3.2 mmol/L (3.3-5.1); Sodium 143 mmol/L (135-145)
[2021-05-20 06:24] LABS: Band Neutrophils Percent 7 % (3-5); Eosinophils Absolute Manual 0.1 X10*3/UL (0.0-0.8); Eosinophils Percent Manual 1 % (0-4); Lymphocytes Percent Manual 21 % (20-40); Macrocytosis 1+ (5-14) /OIF; Metamyelocytes Absolute 0.4 X10*3/uL; Metamyelocytes Percent 4 %; Monocytes Absolute Manual 0.3 X10*3/uL (0.0-1.2); Monocytes Percent Manual 3 % (2-11); Myelocytes Absolute 0.5 X10*/uL; Myelocytes Percent 5 %; Neutrophils Absolute Manual 6.3 X10*3/uL (2.2-7.9); Neutrophils Percent Manual 59 % (45-73); RBC Morphology NOTED
[2021-05-20 06:25] LABS: Polychromasia 1+ (0-2) /OIF; Tear Drop Cells 1+ (0-2) /OIF
[2021-05-20 06:26] LABS: Large Platelet PRESENT; Platelet Estimate DECREASED (NORMAL); Platelet Morphology Comment NORMAL
[2021-05-20] MEDS: Levothyroxine Sodium 100 MCG TABLET PO (06:35)
[2021-05-20 07:07] LABS: Glucose, Whole Blood 125 mg/dL (60-115)
[2021-05-20] MEDS: ARIPiprazole 15 MG TABLET PO (07:56)
[2021-05-20] MEDS: Metoprolol Tartrate 12.5 MG HALFTAB PO ×2 (07:56→20:51)
[2021-05-20] MEDS: Docusate Sodium 100 MG CAPSULE PO ×2 (07:56→20:52)
[2021-05-20] MEDS: DULoxetine HCl 20 MG CAPSULE.DR PO (07:56)
[2021-05-20] MEDS: Aspirin Enteric Coated 81 MG TABLET.DR PO (07:56)
[2021-05-20] MEDS: Chlorhexidine Gluc Oral Rinse 15 ML MOUTHWASH BUCCAL ×2 (07:57→20:51)
[2021-05-20] MEDS: oxyCODONE HCl Immed Release 5 MG TABLET PO (08:02)
[2021-05-20] MEDS: Enoxaparin Sodium 40 MG/0.4 ML SYRINGE SUBCUT (09:52)
[2021-05-20] MEDS: Insulin Lispro 100 UNIT/ML 3 ML VIAL SUBCUT ×2 (11:20→16:17)
--- NOTE | 2021-05-20 12:57 | P.PNIM_ITS ---
Subjective Subjective Date of Service: 05/20/21 Interval History: Patient awake alert complaining of pain left leg, no acute overnight issues, noted to have significant macerated skin of groin, left heel ulcer with thick eschar. 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 Awake alert in no acute distress Neck: supple,no jvd Lungs: clear to auscultation bilaterally Heart: irregularly irregular, no murmurs Abd: soft, non-tender, non-distended Ext:? Improving erythema of the left leg extending from hip down to ankle ,no fluctuance; no drainage, left heel ulcer with yellow slough Skin: Hyperemic rash of groin Neuro: alert, no facial droop, speech clear Psych: impaired insight Objective Data Current Medications Generic Name Dose Route Start Last Admin Trade Name Freq PRN Reason Stop Dose Admin Acetaminophen 650 mg 05/15/21 09:04 Acetaminophen 325 Mg Tablet PO Q6H PRN fever/pain Aripiprazole 15 mg 05/16/21 09:00 05/20/21 07:56 Aripiprazole 15 Mg Tablet PO 15 mg DAILY CARRIE Administration Aspirin 81 mg 05/16/21 09:00 05/20/21 07:56 Aspirin Enteric Coated 81 Mg Tablet. PO 81 mg DAILY CARRIE Administration Chlorhexidine Gluconate 15 ml 05/15/21 21:00 05/20/21 07:57 Chlorhexidine Gluc Oral Rinse 15 Ml Mouthwash BUCCAL 15 ml BID CARRIE Administration Docusate Sodium 100 mg 05/15/21 09:15 05/20/21 07:56 Docusate Sodium 100 Mg Capsule PO 100 mg BID CARRIE Administration Duloxetine HCl 20 mg 05/16/21 09:00 05/20/21 07:56 Duloxetine Hcl 20 Mg Capsule. PO 20 mg DAILY CARRIE Administration Enoxaparin Sodium 40 mg 05/15/21 10:00 05/20/21 09:52 Enoxaparin Sodium 40 Mg/0.4 Ml Syringe SUBCUT 40 mg Q24H CARRIE Administration Doxycycline Hyclate 100 mg/ 250 mls @ 166.67 mls/hr 05/19/21 14:00 05/20/21 03:57 Sodium Chloride IV Infused Q12H CARRIE Infusion Piperacillin Sod/Tazobactam 50 mls @ 100 mls/hr 05/19/21 16:00 05/20/21 10:44 Sod 3.375 gm/ Sodium Chloride IV Infused Q6H CARRIE Infusion Insulin Human Lispro 0 unit 05/15/21 13:30 05/20/21 11:20 Insulin Lispro 100 Unit/Ml 3 Ml Vial SUBCUT 2 unit QIDACHS CARRIE Administration Protocol Levothyroxine Sodium 100 mcg 05/16/21 06:30 05/20/21 06:35 Levothyroxine Sodium 100 Mcg Tablet PO 100 mcg DAILY@0630 CARRIE Administration Lorazepam 0.5 mg 05/15/21 18:00 05/19/21 19:11 Lorazepam 0.5 Mg Tablet PO 0.5 mg DAILY@1800 CARRIE Administration Metoprolol Tartrate 12.5 mg 05/19/21 21:00 05/20/21 07:56 Metoprolol Tartrate 12.5 Mg Halftab PO 12.5 mg BID CARRIE Administration Protocol Ondansetron HCl 4 mg 05/15/21 09:01 Ondansetron Hcl 4 Mg/2 Ml Vial IVPUSH Q6H PRN nausea/vomitingadd Oxycodone HCl 5 mg 05/18/21 11:26 05/20/21 08:02 Oxycodone Hcl Immed Release 5 Mg Tablet PO 5 mg Q6H PRN Administration Pain, Severe (Pain Scale 7-10) Pharmacy Consult 1 each 05/15/21 07:16 Consult Rx Perform Med Rec MISCELLANE ONCE PRN Consult order Polyethylene Glycol 17 gm 05/15/21 09:01 Polyethylene Glycol 3350 17 Gm Powd.Pack PO DAILY PRN constipation Senna 17.2 mg 05/15/21 21:00 05/19/21 21:12 Sennosides 8.6 Mg Tablet PO 17.2 mg BEDTIME CARRIE Administration Sodium Chloride 3 ml 05/15/21 16:00 05/20/21 07:56 0.9 % Sodium Chloride Flush 3 Ml Syringe IVFLUSH 3 ml QSHIFT CARRIE Administration Trazodone HCl 25 mg 05/15/21 21:00 05/19/21 21:13 Trazodone Hcl 25 Mg Halftab PO 25 mg BEDTIME CARRIE Administration Valproic Acid 500 mg 05/16/21 09:00 05/20/21 07:56 Valproic Acid (As Sodium Salt) 250 Mg/5 Ml Solution PO 500 mg BID CARRIE Administration Labs CBC & Chem 7: 05/20/21 05:03 05/20/21 05:03 Labs: Laboratory Results - last 24 hr 05/19/21 05/19/21 05/19/21 14:31 14:43 15:46 MCV MCH MCHC RDW Plt Count MPV Immature Gran % (Auto) Neut % (Auto) Lymph % (Auto) Mckean % (Auto) Eos % (Auto) Baso % (Auto) Lymph # (Auto) Mckean # (Auto) Eos # (Auto) Baso # (Auto) Abs Immat Gran (auto) Absolute Neuts (auto) Absolute Nucleated RBC Nucleated RBC % (auto) Neutrophils % (Manual) Band Neutrophils % Lymphocytes % (Manual) Monocytes % (Manual) Eosinophils % (Manual) Metamyelocytes % Myelocytes % Abs Neuts (Manual) Lymphocytes # (Manual) Monocytes # (Manual) Eosinophils # (Manual) Metamyelocytes # Myelocytes # Platelet Estimate Large Platelets Plt Morphology Comment RBC Morphology Polychromasia Macrocytosis Tear Drop Cells Anion Gap Estim Creat Clear Calc Estimated GFR POC Glucose 233 H 231 H Random Glucose Calcium Nasal Screen MRSA (PCR) NEGATIVE Nasal S. aureus Screen NEGATIVE Nasal MRSA/S.aureus Interp SEE NOTE 05/19/21 05/20/21 05/20/21 19:57 05:03 05:03 MCV 100.3 H MCH 32.1 MCHC 32.0 RDW 14.7 Plt Count 172 D MPV 11.1 Immature Gran % (Auto) Cancelled Neut % (Auto) Cancelled Lymph % (Auto) Cancelled Mckean % (Auto) Cancelled Eos % (Auto) Cancelled Baso % (Auto) Cancelled Lymph # (Auto) Cancelled Mckean # (Auto) Cancelled Eos # (Auto) Cancelled Baso # (Auto) Cancelled Abs Immat Gran (auto) Cancelled Absolute Neuts (auto) Cancelled Absolute Nucleated RBC 0.030 H Nucleated RBC % (auto) 0.3 H Neutrophils % (Manual) 59 Band Neutrophils % 7 H Lymphocytes % (Manual) 21 Monocytes % (Manual) 3 Eosinophils % (Manual) 1 Metamyelocytes % 4 Myelocytes % 5 Abs Neuts (Manual) 6.3 Lymphocytes # (Manual) 2.0 Monocytes # (Manual) 0.3 Eosinophils # (Manual) 0.1 Metamyelocytes # 0.4 Myelocytes # 0.5 Platelet Estimate DECREASED Large Platelets PRESENT Plt Morphology Comment NORMAL RBC Morphology NOTED Polychromasia 1+ (0-2) Macrocytosis 1+ (5-14) Tear Drop Cells 1+ (0-2) Anion Gap 10 L Estim Creat Clear Calc 88.2 Estimated GFR > 60 POC Glucose 174 H Random Glucose 129 H Calcium 7.7 L D Nasal Screen MRSA (PCR) Nasal S. aureus Screen Nasal MRSA/S.aureus Interp 05/20/21 06:56 MCV MCH MCHC RDW Plt Count MPV Immature Gran % (Auto) Neut % (Auto) Lymph % (Auto) Mckean % (Auto) Eos % (Auto) Baso % (Auto) Lymph # (Auto) Mckean # (Auto) Eos # (Auto) Baso # (Auto) Abs Immat Gran (auto) Absolute Neuts (auto) Absolute Nucleated RBC Nucleated RBC % (auto) Neutrophils % (Manual) Band Neutrophils % Lymphocytes % (Manual) Monocytes % (Manual) Eosinophils % (Manual) Metamyelocytes % Myelocytes % Abs Neuts (Manual) Lymphocytes # (Manual) Monocytes # (Manual) Eosinophils # (Manual) Metamyelocytes # Myelocytes # Platelet Estimate Large Platelets Plt Morphology Comment RBC Morphology Polychromasia Macrocytosis Tear Drop Cells Anion Gap Estim Creat Clear Calc Estimated GFR POC Glucose 125 H Random Glucose Calcium Nasal Screen MRSA (PCR) Nasal S. aureus Screen Nasal MRSA/S.aureus Interp Microbiology Microbiology Results: Microbiology 05/15/21 04:59 Blood Culture - Final Blood - Venous No growth after 5 days. 05/15/21 04:59 Blood Culture - Final Blood - Venous No growth after 5 days. 05/18/21 22:12 Blood Culture - Preliminary Blood - Venous No growth after 24 hours. 05/18/21 22:16 Blood Culture - Preliminary Blood - Venous No growth after 24 hours. Assessment and Plan (1) Hypertension: Status: Acute (2) Severe sepsis: Status: Acute (3) Cellulitis: Status: Acute (4) SHREYAS (acute kidney injury): Status: Acute (5) Ulcer of left heel: Status: Acute Assessment and Plan: 75 year-old female long-term care resident of [facility] with a history of recurrent sepsis from lower extremity cellulitis with bacteremia, atrial fibrillation, vascular dementia, and schizoaffective disorder presenting with worsening lethargy with LLE cellulitis, failed outpatient doxycycline admitted with severe sepsis and SHREYAS # ?severe sepsis from LLE cellulitis/erysipelas - pain resolved redness is improving, d# 6 on iv piperacillin/tazobactam,on doxy day 2 s/p vanco x 5 days ? check MRSA nares ? WBC normalized, no fever, continue oxycodone for pain control, recommend frequent position change.? ? Blood pressure low but stable, dose of metoprolol reduced to 12.5 b.i.d. continue current dose initial and repeat blood cultures both are negative Will place Pascal catheter due to significant groin rash for skin integrity # hypokalemia likely related to IV fluid, replete and follow labs # left heel decubitus ulcer will consult general surgery for possible debridement, high-protein diet, continue heel protectors # AF/RVR - rate-controlled on metoprolol, continue ASA; not on full AC due to fall risk, transthoracic echocardiogram showed preserved EF 60-65%, no wall motion abnormalities, diastolic function is indeterminate ?? no valvular disease noted # septic encephalopathy - confusion and lethargy resolved, seems to be at baseline mental status, has baseline dementia, answering questions appropriately # SHREYAS - likely due to sepsis, creatinine normalized with IV fluid. # thrombocytopenia - likely due to sepsis; platelet count improved, continue to monitor CBC while on LMWH # HTN - noted to have hypotension, improved with IV hydration, continue metoprolol dose lowered to 12.5, follow BP closely # schizoaffective disorder - continue valproate, aripiprazole, duloxetine, lorazepam and trazodone, no behavioral issues noted # dementia, vascular - continue psychiatric medications as above; frequent re-orientation # hypothyroidism - continue LT4 # DM2, A1c 7.1 - blood sugar stable,continue to follow POC + correction-dose lispro; hold MTF # VTE ppx - LMWH Quality Stroke Does the patient have a stroke diagnosis?: No VTE Prior VTE?: No VTE Risk Level:: Medical - moderate - high VTE Device Contraindication: N/A - Device Ordered VTE Drug Contraindication: N/A - Med Ordered
--- NOTE | 2021-05-20 13:55 | PM.CNGS ---
History of Present Illness Consult details Consult date: 05/20/21 Reason for consult: other (Decubitus ulcer left heel) Requesting physician: Hamlet Guerrier Narrative: This is a 75-year-old female who was admitted from a long-term facility for treatment of sepsis related to left lower extremity erysipelas and cellulitis. She was noted to have bilateral heel ulcers, left greater than right, on admission. She offers no complaint, but does report that she has pain and tenderness with manipulation of the left heel. She has a history of vascular dementia and schizoaffective disorder. She is unable to provide any significant history and history is taken from the record. Review of Systems Review of Systems: Yes Unobtainable due to mental condition PMFSH Past Medical History Medical History Atrial fibrillation Chronic constipation Hypothyroidism Recurrent bacteremia Recurrent cellulitis Schizoaffective disorder Trimalleolar fracture of ankle, closed Type 2 diabetes mellitus Vascular dementia Vitamin B12 deficiency Vitamin D deficiency Surgical History Surgical History Status post ORIF of fracture of ankle Social History Social History Household Members: None Housing: Custodial Do you presently have visiting nurse or other home services: No Patient Tobacco Use Status: Never used Tobacco Use of substances other than those prescribed or required for medical reasons: No Currently Displaying Signs/Symptoms of Drug Intoxication Withdrawal: No Have you been hit, kicked, punched, or otherwise hurt by someone within the past year? If so, by whom?: No Do you feel safe in your current relationship?: No Is there a partner from a previous relationship who is making you feel unsafe now?: No Are you made to feel afraid or neglected: No Advance Directives: Yes (JULES, MARVEL) Advance Directives on File: Yes Advance Directives Date on File: 05/15/21 Do you have thoughts of harming others: None Do you have a plan to hurt others: No Plan Recently lost weight without trying: No Nutrition Risks: No Nutritional Risk Patient : No : No Poor oral hygiene: No service: No Current occupational status: disabled Meds Allergies Allergy/AdvReac Type Severity Reaction Status Date / Time No Known Allergies Allergy Unverified 05/15/21 04:51 Active Medications: Current Medications Generic Name Dose Route Start Last Admin Trade Name Dianelys PRN Reason Stop Dose Admin Acetaminophen 650 mg 05/15/21 09:04 Acetaminophen 325 Mg Tablet PO Q6H PRN fever/pain Aripiprazole 15 mg 05/16/21 09:00 05/20/21 07:56 Aripiprazole 15 Mg Tablet PO 15 mg DAILY CARRIE Administration Aspirin 81 mg 05/16/21 09:00 05/20/21 07:56 Aspirin Enteric Coated 81 Mg Tablet. PO 81 mg DAILY CARRIE Administration Chlorhexidine Gluconate 15 ml 05/15/21 21:00 05/20/21 07:57 Chlorhexidine Gluc Oral Rinse 15 Ml Mouthwash BUCCAL 15 ml BID CARRIE Administration Docusate Sodium 100 mg 05/15/21 09:15 05/20/21 07:56 Docusate Sodium 100 Mg Capsule PO 100 mg BID CARRIE Administration Duloxetine HCl 20 mg 05/16/21 09:00 05/20/21 07:56 Duloxetine Hcl 20 Mg Capsule. PO 20 mg DAILY CARRIE Administration Enoxaparin Sodium 40 mg 05/15/21 10:00 05/20/21 09:52 Enoxaparin Sodium 40 Mg/0.4 Ml Syringe SUBCUT 40 mg Q24H CARRIE Administration Doxycycline Hyclate 100 mg/ 250 mls @ 166.67 mls/hr 05/19/21 14:00 05/20/21 13:47 Sodium Chloride IV 166.67 mls/hr Q12H CARRIE Administration Piperacillin Sod/Tazobactam 50 mls @ 100 mls/hr 05/19/21 16:00 05/20/21 10:44 Sod 3.375 gm/ Sodium Chloride IV Infused Q6H CARRIE Infusion Insulin Human Lispro 0 unit 05/15/21 13:30 05/20/21 11:20 Insulin Lispro 100 Unit/Ml 3 Ml Vial SUBCUT 2 unit QIDACHS CARRIE Administration Protocol Levothyroxine Sodium 100 mcg 05/16/21 06:30 05/20/21 06:35 Levothyroxine Sodium 100 Mcg Tablet PO 100 mcg DAILY@0630 CARRIE Administration Lorazepam 0.5 mg 05/15/21 18:00 05/19/21 19:11 Lorazepam 0.5 Mg Tablet PO 0.5 mg DAILY@1800 CARRIE Administration Metoprolol Tartrate 12.5 mg 05/19/21 21:00 05/20/21 07:56 Metoprolol Tartrate 12.5 Mg Halftab PO 12.5 mg BID CARRIE Administration Protocol Ondansetron HCl 4 mg 05/15/21 09:01 Ondansetron Hcl 4 Mg/2 Ml Vial IVPUSH Q6H PRN nausea/vomitingadd Oxycodone HCl 5 mg 05/18/21 11:26 05/20/21 08:02 Oxycodone Hcl Immed Release 5 Mg Tablet PO 5 mg Q6H PRN Administration Pain, Severe (Pain Scale 7-10) Pharmacy Consult 1 each 05/15/21 07:16 Consult Rx Perform Med Rec MISCELLANE ONCE PRN Consult order Polyethylene Glycol 17 gm 05/15/21 09:01 Polyethylene Glycol 3350 17 Gm Powd.Pack PO DAILY PRN constipation Senna 17.2 mg 05/15/21 21:00 05/19/21 21:12 Sennosides 8.6 Mg Tablet PO 17.2 mg BEDTIME CARRIE Administration Sodium Chloride 3 ml 05/15/21 16:00 05/20/21 07:56 0.9 % Sodium Chloride Flush 3 Ml Syringe IVFLUSH 3 ml QSHIFT CARRIE Administration Trazodone HCl 25 mg 05/15/21 21:00 05/19/21 21:13 Trazodone Hcl 25 Mg Halftab PO 25 mg BEDTIME CARRIE Administration Valproic Acid 500 mg 05/16/21 09:00 05/20/21 07:56 Valproic Acid (As Sodium Salt) 250 Mg/5 Ml Solution PO 500 mg BID CARRIE Administration Home Medications Medication Instructions Recorded Confirmed Last Taken Type Lactobacillus rhamnosus GG 10 1 cap PO BID 05/15/21 05/15/21 05/14/21 History billion cell capsule (Culturelle) aripiprazole 15 mg tablet 15 mg PO DAILY 05/15/21 05/15/21 05/14/21 History aspirin 81 mg tablet,delayed 81 mg PO DAILY 05/15/21 05/15/21 05/14/21 History release chlorhexidine gluconate 0.12 % 15 ml BUCCAL BID 05/15/21 05/15/21 05/14/21 History mouthwash (Peridex) divalproex 500 mg tablet,delayed 500 mg PO BID 05/15/21 05/15/2105/14/21 History release doxycycline hyclate 100 mg capsule 100 mg PO BID 05/15/21 05/15/21 05/14/21 History duloxetine 20 mg capsule,delayed 20 mg PO DAILY 05/15/21 05/15/21 05/14/21 History release levothyroxine 100 mcg tablet 100 mcg PO DAILY 05/15/21 05/15/21 05/14/21 History lorazepam 0.5 mg tablet 0.5 mg PO DAILY@1800 05/15/21 05/15/21 05/14/21 History metformin 500 mg tablet 500 mg PO BID 05/15/21 05/15/21 05/14/21 History metoprolol tartrate 25 mg tablet 25 mg PO BID 05/15/21 05/15/21 05/14/21 History polyethylene glycol 3350 17 gram 17 g PO DAILY 05/15/21 05/15/21 05/14/21 History oral powder packet trazodone 50 mg tablet 25 mg PO BEDTIME 05/15/21 05/15/21 05/14/21 History Physical Exam Vital Signs: Vital Signs: Last Vital Signs Temp 98.3 F 05/20/21 15:08 Pulse 86 05/20/21 15:08 Resp 18 05/20/21 15:08 BP 141/65 H 05/20/21 15:08 Pulse Ox 98 05/20/21 15:08 Body Mass Index 32.8 Const: Other: Drips off to sleep when not stimulated, easily arousable and cooperative Resp: Effort & Inspection: normal respiratory effort Auscultation: clear to auscultation bilaterally Cardio: Rate: regular rate Rhythm: regular rhythm Peripheral pulses: posterior tibial pulses not present (No Doppler signal identified on left) and dorsalis pedis present on the right 1+ and on the left dopplerable (Biphasic) Skin: Other: Patchy erythema left lower extremity; darkened skin consistent with deep tissue injury present posterior and plantar aspect of left calcaneal area with some loose dry skin present superficially in posterior aspect consistent with ruptured bulla; small area of darkened skin present on right calcaneal area also consistent with limited deep tissue injury Extrem: Other: Moderate edema left lower extremity, mild edema right lower extremity Results Labs Result diagrams: 05/20/21 05:03 05/20/21 05:03 Labs: Abnormal lab results 05/19/21 05/19/21 05/20/21 Range/Units 15:46 19:57 05:03 RBC 2.90 L (4.20-5.50) X10*6/uL Hgb 9.3 L (12.0-16.0) g/dl Hct 29.1 L (37-47) % MCV 100.3 H (80-98) fL Absolute Nucleated RBC 0.030 H (0.0-0.012) X10*3/uL Nucleated RBC % (auto) 0.3 H (0.0-0.2) /100WBC Band Neutrophils % 7 H (3-5) % Potassium (3.3-5.1) mmol/L Chloride (96-108) mmol/L Anion Gap (12-20) POC Glucose 231 H 174 H (60-115) mg/dL Random Glucose (60-115) mg/dL Calcium (8.4-10.2) mg/dL 05/20/21 05/20/21 05/20/21 Range/Units 05:03 06:56 11:02 RBC (4.20-5.50) X10*6/uL Hgb (12.0-16.0) g/dl Hct (37-47) % MCV (80-98) fL Absolute Nucleated RBC (0.0-0.012) X10*3/uL Nucleated RBC % (auto) (0.0-0.2) /100WBC Band Neutrophils % (3-5) % Potassium 3.2 L (3.3-5.1) mmol/L Chloride 111 H (96-108) mmol/L Anion Gap 10 L (12-20) POC Glucose 125 H 199 H (60-115) mg/dL Random Glucose 129 H (60-115) mg/dL Calcium 7.7 L D (8.4-10.2) mg/dL Short CBC 05/20/21 Range/Units 05:03 WBC 9.5 (4.8-10.8) X10*3/uL Hgb 9.3 L (12.0-16.0) g/dl Hct 29.1 L (37-47) % Plt Count 172 D (160-400) X10*3/uL BMP 05/20/21 05:03 Sodium 143 Potassium 3.2 L Chloride 111 H Carbon Dioxide 25 BUN 13 D Creatinine 0.63 Calcium 7.7 L D Urine 05/15/21 Range/Units 05:12 Urine Color DARK YELLOW Urine Appearance CLOUDY Urine pH 6.0 (5.0-8.0) Ur Specific Kellogg >= 1.030 H (1.005-1.025) Urine Protein 2+ H (NEG-TRACE) MG/DL Urine Glucose (UA) 500 H (NEG) MG/DL All other labs normal. Assessment and Plan (1) Ulcer of left heel: Status: Acute (2) Cellulitis: Status: Acute 75-year-old female admitted from long-term facility with sepsis, cellulitis of left lower extremity and pre-existing deep tissue injury bilateral heels significantly greater on the left than on the right. There is evidence of significant vascular compromise on the left. Continue pressure relief measures, foam dressings. Recommend vascular assessment. Debridement is not needed at this time. Procedures Date of Service Date of Service: 05/20/21
[2021-05-20 14:38] LABS: Glucose, Whole Blood 199 mg/dL (60-115)
[2021-05-20 15:36] LABS: Glucose, Whole Blood 159 mg/dL (60-115)
[2021-05-20] MEDS: Potassium Chloride Packet 20 MEQ PACKET 40 MEQ PO (15:39)
[2021-05-20] MEDS: LORazepam 0.5 MG TABLET PO (17:54)
--- NOTE | 2021-05-20 19:11 | PC.NURSE ---
Skin Integrity Upon shift assessment, pt was being cleaned up and getting her dressing change when it was noted that her skin is severely macerated and angry looking (inflamed) between her groin, vagina and buttocks. Pt is on a air loss bed and paper chucks with frequent repositioning, however skin gets very moist. MD was notified of the extensive maceration of pt skin and a Pacsal was ordered to prevent further skin break down; prior to indwelling catheter pt has a purewick; upon removal it was noted that her vagina was severely inflamed and purewick sponge contained blood and peeling skin. [place] was not appropriate for patient after cleaning and applying barrier cream Pt c/o that the area burned and is painful. Pt wound on her buttocks is now a stage III with orders of a xeroform and foam dressing; her unstagebale on her left ankle is now peeling, cleaned with some sterile water and foam applied. pressure bruising also on right ankle with foam dressing applied. Pt wound pictures were updated (see pt chart). General surgery was also consulted and suggested that no I&D was needed at the moment, continue pressure relief and possibly have Vascular MD see patient.
[2021-05-20 19:52] LABS: Glucose, Whole Blood 137 mg/dL (60-115)
[2021-05-20] MEDS: Sennosides 8.6 MG TABLET 17.2 MG PO (20:51)
[2021-05-20] MEDS: traZODone HCL 25 MG HALFTAB PO (20:52)
[2021-05-21] VITALS (8 sets, daily range): BP systolic 109–151; BP diastolic 51–92; PULSE 69–89; RESP 18–20; TEMP 36.1–37.1; O2SAT 93–100
[2021-05-21] MEDS: Doxycycline Hyclate 100 MG in 0.9 % Sodium Chloride 250 ML 166.67 MG IV (01:33)
[2021-05-21] MEDS: Piperacillin Sodium/Tazobactam 3.375 GM in 0.9 % Sodium Chloride 50 ML IV ×2 (03:08→08:34)
[2021-05-21] MEDS: Levothyroxine Sodium 100 MCG TABLET PO (05:06)
[2021-05-21 07:13] LABS: Anion Gap 10 (12-20); Blood Urea Nitrogen 10 mg/dL (9-16); Calcium 7.8 mg/dL (8.4-10.2); Carbon Dioxide 25 mmol/L (22-29); Chloride 111 mmol/L (96-108); Creatinine Clr Calc Pharmacy 84.2; Estimated Glomerular Filt Rate > 60; Glucose Random 148 mg/dL (60-115); Potassium 3.8 mmol/L (3.3-5.1); Sodium 142 mmol/L (135-145)
[2021-05-21 07:26] LABS: Glucose, Whole Blood 144 mg/dL (60-115)
[2021-05-21] MEDS: Chlorhexidine Gluc Oral Rinse 15 ML MOUTHWASH BUCCAL ×2 (08:33→20:33)
[2021-05-21] MEDS: ARIPiprazole 15 MG TABLET PO (08:33)
[2021-05-21] MEDS: DULoxetine HCl 20 MG CAPSULE.DR PO (08:33)
[2021-05-21] MEDS: Docusate Sodium 100 MG CAPSULE PO ×2 (08:33→20:33)
[2021-05-21] MEDS: Metoprolol Tartrate 12.5 MG HALFTAB PO ×2 (08:33→20:35)
[2021-05-21] MEDS: Aspirin Enteric Coated 81 MG TABLET.DR PO (08:33)
[2021-05-21] MEDS: 0.9 % Sodium Chloride Flush 3 ML SYRINGE IVFLUSH ×2 (08:34→20:34)
[2021-05-21] MEDS: Enoxaparin Sodium 40 MG/0.4 ML SYRINGE SUBCUT (08:37)
[2021-05-21] MEDS: oxyCODONE HCl Immed Release 5 MG TABLET PO (08:55)
--- NOTE | 2021-05-21 09:47 | MHC.SL.DTX ---
Pre-Treatment Diet: PUREED (NDD1) solids NECTAR THICK liquid CRUSHED pills in PUREE Subjective: Changes made to current diet?: No: No Change Dysphasia Diet Status: NO CHANGE Liquid Consistency and Strategies: Liquid Intake Recommendation: [place] Thick Compensatory Strategies for Safe Swallow: Small Sips NO STRAW Compensatory Strategies for Safe Swallow(b): Sitting Upright (90 deg) NO STRAW Liquids from Cup Small Bites and Sips Alternate Liquids/Solids Oral Check Solid Food Consistency: Dietary Recommendations: Pureed (NDD1) Additional Modifications to Solids: Oral Medication Intake: Crushed with Puree Strategies and Precautions to be Taken for Safe Swallow: Compensatory Swallowing Status: Sitting Upright (90 deg) NO STRAW Liquids from Cup Small Bites and Sips Alternate Liquids/Solids Oral Check Supervision While Eating and/Drinking: Total Assistance Foods to Avoid: Swallowing Recommended Treatments: Compens. Strategy Educat. Level of Impact on: Daily activities: Mild Interpersonal interactions: Mild Education: None Employment: None Community: Mild Prognosis for Improvement: Guarded Recommendation for Speech: Inpatient Speech Therapy Comment: GAS APPLIANCE INSTALLER will continue to follow during hospitalization. Frequency/Duration: Date Range for Service Req: Timeline to reassess: Additional Comments: Treatment: Patient was awake sitting up in bed when GAS APPLIANCE INSTALLER arrived. Patient agreed to limited PO trials. Per CLAY PROCESSING FACTORY WORKER, pt's family is bringing in food and drink items without checking in with RN RE: thickener. Pt reportedly tolerated yogurt this morning without difficulty. CLAY PROCESSING FACTORY WORKER mentioned that pt continues to cough with nectar thick liquids. She stated that it seems related to the straw. Pt stated she was not hungry and reused solid PO trials, though agreed to liquids. Pt tolerated trace amounts of thin liquid with no overt s/s aspiration. When given a tsp, pt produced an immediate wet cough, resulting in a coughing fit which lasted about 1 minute. Pt tolerated nectar thick liquids via tsp and cup sip without difficulty. A throat clear was noted when given a sip via straw. Straws were removed from pt's bedside table. Pt appears to be on appropriate diet textures at this time. Tie Worker Clinican/Clinical Fellow: No Supervisory Statement: I have reviewed and agree with the student/clinical fellow's documentation: N/A Speech Language Pathologist: Karen Hammond M.A. [facility]-GAS APPLIANCE INSTALLER
[2021-05-21 11:21] LABS: Glucose, Whole Blood 208 mg/dL (60-115)
--- NOTE | 2021-05-21 12:23 | MHC.CLN ---
F/U PO INTAKE 25-50% (05/18-05/21) DIET RX: 2000DM PUREED WITH NT LIQ-APPROPRIATE FLIGHT PARAMEDIC CONTINUES TO REC PUREED WITH NT LIQ PT RECEIVING GLUCERNA AND JAYDEN TO PROMOTE WOUND HEALING SUPPLEMENTS PROVIDE 634KCALS, 25G PROTEIN CONTINUE TO MONITOR PO INTAKE CLOSELY
[2021-05-21] MEDS: Insulin Lispro 100 UNIT/ML 3 ML VIAL SUBCUT (12:31)
--- NOTE | 2021-05-21 13:30 | MHC.CM.PN ---
DP Female 75 DX Severe sepsis Cellulitis. No discharge today. A Surgical consult Has been completed. No debridment at this time. Surgery recommends a Vascular consult. DP return to [facility] via BLS. CM will continue to follow.
[2021-05-21] MEDS: Clindamycin Phosphate/D5W 600 MG/50 ML PIGGYBACK 100 MG IV ×2 (14:19→20:34)
--- NOTE | 2021-05-21 16:19 | P.PNIM_ITS ---
Subjective Subjective Date of Service: 05/21/21 Interval History: Patient resting comfortably, denies pain, no fever chills, no other acute issues overnight. Review of Systems General no fever [employer] no headache, no dizziness CVS no chest pain GI no nausea, no vomiting, no diarrhea Physical Exam Vital Signs: Vital Signs: Last Vital Signs Temp 98.7 F 05/21/21 15:59 Pulse 79 05/21/21 15:59 Resp 19 05/21/21 15:59 BP 109/51 L 05/21/21 15:59 Pulse Ox 99 05/21/21 15:59 Body Mass Index 32.8 GEN:? Awake alert, no acute distress Neck: supple,no jvd Lungs: clear to auscultation bilaterally Heart: irregularly irregular, no murmurs Abd: soft, non-tender, non-distended Ext:? Improving erythema of the left leg extending from hip down to ankle ,no fluctuance; no drainage, left heel ulcer , significant lower extremity edema Skin:? Hyperemic rash of groin Neuro: alert, no facial droop, speech clear Psych: impaired insight Objective Data Current Medications Generic Name Dose Route Start Last Admin Trade Name Freq PRN Reason Stop Dose Admin Acetaminophen 650 mg 05/15/21 09:04 Acetaminophen 325 Mg Tablet PO Q6H PRN fever/pain Aripiprazole 15 mg 05/16/21 09:00 05/21/21 08:33 Aripiprazole 15 Mg Tablet PO 15 mg DAILY CARRIE Administration Aspirin 81 mg 05/16/21 09:00 05/21/21 08:33 Aspirin Enteric Coated 81 Mg Tablet. PO 81 mg DAILY CARRIE Administration Chlorhexidine Gluconate 15 ml 05/15/21 21:00 05/21/21 08:33 Chlorhexidine Gluc Oral Rinse 15 Ml Mouthwash BUCCAL 15 ml BID CARRIE Administration Docusate Sodium 100 mg 05/15/21 09:15 05/21/21 08:33 Docusate Sodium 100 Mg Capsule PO 100 mg BID CARRIE Administration Duloxetine HCl 20 mg 05/16/21 09:00 05/21/21 08:33 Duloxetine Hcl 20 Mg Capsule. PO 20 mg DAILY CARRIE Administration Enoxaparin Sodium 40 mg 05/15/21 10:00 05/21/21 08:37 Enoxaparin Sodium 40 Mg/0.4 Ml Syringe SUBCUT 40 mg Q24H CARRIE Administration Clindamycin Phosphate 600 mg in 50 mls @ 100 mls/hr 05/21/21 14:00 05/21/21 15:31 Cleocin IV Infused Q8H CARRIE Infusion Insulin Human Lispro 0 unit 05/15/21 13:30 05/21/21 12:31 Insulin Lispro 100 Unit/Ml 3 Ml Vial SUBCUT 4 unit QIDACHS CARRIE Administration Protocol Levothyroxine Sodium 100 mcg 05/16/21 06:30 05/21/21 05:06 Levothyroxine Sodium 100 Mcg Tablet PO 100 mcg DAILY@0630 CARRIE Administration Metoprolol Tartrate 12.5 mg 05/19/21 21:00 05/21/21 08:33 Metoprolol Tartrate 12.5 Mg Halftab PO 12.5 mg BID CARRIE Administration Protocol Ondansetron HCl 4 mg 05/15/21 09:01 Ondansetron Hcl 4 Mg/2 Ml Vial IVPUSH Q6H PRN nausea/vomitingadd Oxycodone HCl 5 mg 05/18/21 11:26 05/21/21 08:55 Oxycodone Hcl Immed Release 5 Mg Tablet PO 5 mg Q6H PRN Administration Pain, Severe (Pain Scale 7-10) Pharmacy Consult 1 each 05/15/21 07:16 Consult Rx Perform Med Rec MISCELLANE ONCE PRN Consult order Polyethylene Glycol 17 gm 05/15/21 09:01 Polyethylene Glycol 3350 17 Gm Powd.Pack PO DAILY PRN constipation Senna 17.2 mg 05/15/21 21:00 05/20/21 20:51 Sennosides 8.6 Mg Tablet PO 17.2 mg BEDTIME CARRIE Administration Sodium Chloride 3 ml 05/15/21 16:00 05/21/21 08:34 0.9 % Sodium Chloride Flush 3 Ml Syringe IVFLUSH 3 ml QSHIFT CARRIE Administration Trazodone HCl 25 mg 05/15/21 21:00 05/20/21 20:52 Trazodone Hcl 25 Mg Halftab PO 25 mg BEDTIME CARRIE Administration Valproic Acid 500 mg 05/16/21 09:00 05/21/21 08:33 Valproic Acid (As Sodium Salt) 250 Mg/5 Ml Solution PO 500 mg BID CARRIE Administration Labs CBC & Chem 7: 05/20/21 05:03 05/21/21 06:10 Labs: Laboratory Results - last 24 hr 05/20/21 05/20/21 05/21/21 05:03 19:43 06:10 Smear Path Review SEE NOTE Anion Gap 10 L Estim Creat Clear Calc 84.2 Estimated GFR > 60 POC Glucose 137 H Random Glucose 148 H Calcium 7.8 L 05/21/21 05/21/21 06:56 10:57 Smear Path Review Anion Gap Estim Creat Clear Calc Estimated GFR POC Glucose 144 H 208 H Random Glucose Calcium Microbiology Microbiology Results: Microbiology 05/18/21 22:12 Blood Culture - Preliminary Blood - Venous No growth after 48 hours. 05/18/21 22:16 Blood Culture - Preliminary Blood - Venous No growth after 48 hours. Assessment and Plan (1) Ulcer of left heel: Status: Acute (2) Hypertension: Status: Acute (3) Cellulitis: Status: Acute (4) SHREYAS (acute kidney injury): Status: Acute Assessment and Plan: 75 year-old female long-term care resident of [facility] with a history of recurrent sepsis from lower extremity cellulitis with bacteremia, atrial fibrillation, vascular dementia, and schizoaffective disorder presenting with worsening lethargy with LLE cellulitis, failed outpatient doxycycline admitted with severe sepsis and SHREYAS # ?severe sepsis from LLE cellulitis/erysipelas - pain resolved redness is improving, d# 7 on iv piperacillin/tazobactam,on doxy day 3 s/p vanco x 5 days ? MRSA nares negative ? WBC normalized, no fever, continue oxycodone for pain control, recommend frequent position change.? ? Blood pressure low but stable, dose of metoprolol reduced to 12.5 b.i.d. initial and repeat blood cultures both are negative Case discussed with Dr. Shelton she recommend clindamycin 600 mg Q 8 hour therefore will DC IV Zosyn and doxy ? Will place Pascal catheter due to significant groin rash for skin integrity # hypokalemia likely related to IV fluid, replete and follow labs # left heel decubitus ulcer patient seen by General surgery they recommend vascular surgery evaluation, consulted Dr. Meeks ,continue heel protectors # AF/RVR - rate-controlled on metoprolol, continue ASA; not on full AC due to fall risk, transthoracic echocardiogram showed preserved EF 60-65%, no wall motion abnormalities, diastolic function is indeterminate ?? no valvular disease noted # septic encephalopathy - confusion and lethargy resolved, seems to be at baseline mental status, has baseline dementia, answering questions appropriately # SHREYAS - likely due to sepsis, creatinine normalized with IV fluid. # thrombocytopenia - likely due to sepsis; platelet count improved, continue to monitor CBC while on LMWH # HTN - noted to have hypotension, improved with IV hydration, continue metoprolol dose lowered to 12.5, follow BP closely # schizoaffective disorder - continue valproate, aripiprazole, duloxetine, lorazepam and trazodone, no behavioral issues noted # dementia, vascular - continue psychiatric medications as above; frequent re-orientation # hypothyroidism - continue LT4 # DM2, A1c 7.1 - blood sugar stable,continue to follow POC + correction-dose lispro; hold MTF # VTE ppx - LMWH Quality Stroke Does the patient have a stroke diagnosis?: No VTE Prior VTE?: No VTE Risk Level:: Medical - moderate - high VTE Device Contraindication: N/A - Device Ordered VTE Drug Contraindication: N/A - Med Ordered
[2021-05-21 16:33] LABS: Glucose, Whole Blood 148 mg/dL (60-115)
[2021-05-21] MEDS: traZODone HCL 25 MG HALFTAB PO (20:33)
[2021-05-21] MEDS: Sennosides 8.6 MG TABLET 17.2 MG PO (20:33)
[2021-05-21 20:39] LABS: Glucose, Whole Blood 125 mg/dL (60-115)
--- NOTE | 2021-05-21 21:45 | P.CNID_ITS ---
History of Present Illness Data of Consult Service Date: 05/21/21 Requesting physician: Hamlet Guerrier Primary Care Provider: Dimple Mcintosh MD HPI Reason for consult: cellulitis She presents to hospital with redness left leg for a week She also has spread of redness up leg Vascular is seeing Review of Systems Review of Systems: Yes all other systems are reviewed and are negative PMFSH Past Medical History Medical History Atrial fibrillation Chronic constipation Hypertension Hypothyroidism Recurrent bacteremia Recurrent cellulitis Schizoaffective disorder Trimalleolar fracture of ankle, closed Type 2 diabetes mellitus Vascular dementia Vitamin B12 deficiency Vitamin D deficiency Family History Family history: reviewed and not pertinent Surgical History Surgical History Status post ORIF of fracture of ankle Social History Social History Household Members: None Housing: Correction Do you presently have visiting nurse or other home services: No Patient Tobacco Use Status: Never used Tobacco Advance Directives Date on File: 05/15/21 service: No Current occupational status: disabled Meds Allergies Allergy/AdvReac Type Severity Reaction Status Date / Time No Known Allergies Allergy Verified 06/21/21 14:52 Active Medications: Current Medications Generic Name Dose Route Start Last Admin Trade Name Freq PRN Reason Stop Dose Admin Acetaminophen 650 mg 05/15/21 09:04 Acetaminophen 325 Mg Tablet PO Q6H PRN fever/pain Aripiprazole 15 mg 05/16/21 09:00 05/21/21 08:33 Aripiprazole 15 Mg Tablet PO 15 mg DAILY CARRIE Administration Aspirin 81 mg 05/16/21 09:00 05/21/21 08:33 Aspirin Enteric Coated 81 Mg Tablet. PO 81 mg DAILY CARRIE Administration Chlorhexidine Gluconate 15 ml 05/15/21 21:00 05/21/21 20:33 Chlorhexidine Gluc Oral Rinse 15 Ml Mouthwash BUCCAL 15 ml BID CARRIE Administration Docusate Sodium 100 mg 05/15/21 09:15 05/21/21 20:33 Docusate Sodium 100 Mg Capsule PO 100 mg BID CARRIE Administration Duloxetine HCl 20 mg 05/16/21 09:00 05/21/21 08:33 Duloxetine Hcl 20 Mg Capsule.Dr PO 20 mg DAILY CARRIE Administration Enoxaparin Sodium 40 mg 05/15/21 10:00 05/21/21 08:37 Enoxaparin Sodium 40 Mg/0.4 Ml Syringe SUBCUT 40 mg Q24H CARRIE Administration Clindamycin Phosphate 600 mg in 50 mls @ 100 mls/hr 05/21/21 14:00 05/21/21 21:12 Cleocin IV Infused Q8H CARRIE Infusion Insulin Human Lispro 0 unit 05/15/21 13:30 05/21/21 20:39 Insulin Lispro 100 Unit/Ml 3 Ml Vial SUBCUT Not Given QIDACHS [facility] Protocol Levothyroxine Sodium 100 mcg 05/16/21 06:30 05/21/21 05:06 Levothyroxine Sodium 100 Mcg Tablet PO 100 mcg DAILY@0630 CARRIE Administration Metoprolol Tartrate 12.5 mg 05/19/21 21:00 05/21/21 20:35 Metoprolol Tartrate 12.5 Mg Halftab PO 12.5 mg BID CARRIE Administration Protocol Ondansetron HCl 4 mg 05/15/21 09:01 Ondansetron Hcl 4 Mg/2 Ml Vial IVPUSH Q6H PRN nausea/vomitingadd Oxycodone HCl 5 mg 05/18/21 11:26 05/21/21 08:55 Oxycodone Hcl Immed Release 5 Mg Tablet PO 5 mg Q6H PRN Administration Pain, Severe (Pain Scale 7-10) Pharmacy Consult 1 each 05/15/21 07:16 Consult Rx Perform Med Rec MISCELLANE ONCE PRN Consult order Polyethylene Glycol 17 gm 05/15/21 09:01 Polyethylene Glycol 3350 17 Gm Powd.Pack PO DAILY PRN constipation Senna 17.2 mg 05/15/21 21:00 05/21/21 20:33 Sennosides 8.6 Mg Tablet PO 17.2 mg BEDTIME CARRIE Administration Sodium Chloride 3 ml 05/15/21 16:00 05/21/21 20:34 0.9 % Sodium Chloride Flush 3 Ml Syringe IVFLUSH 3 ml QSHIFT CARRIE Administration Trazodone HCl 25 mg 05/15/21 21:00 05/21/21 20:33 Trazodone Hcl 25 Mg Halftab PO 25 mg BEDTIME CARRIE Administration Valproic Acid 500 mg 05/16/21 09:00 05/21/21 20:33 Valproic Acid (As Sodium Salt) 250 Mg/5 Ml Solution PO 500 mg BID CARRIE Administration Home Medications Medication Instructions Recorded Confirmed Last Taken Type Lactobacillus rhamnosus GG 10 1 cap PO BID 05/15/21 07/11/21 07/10/21 History billion cell capsule (Culturelle) aripiprazole 15 mg tablet 15 mg PO DAILY 05/15/21 07/11/21 07/10/21 History aspirin 81 mg tablet,delayed 81 mg PO DAILY 05/15/21 07/11/21 07/10/21 History release chlorhexidine gluconate 0.12 % 15 ml BUCCAL BID 05/15/21 07/11/21 07/10/21 History mouthwash (Peridex) divalproex 500 mg tablet,delayed 500 mg PO BID 05/15/21 07/11/21 07/10/21 History release duloxetine 20 mg capsule,delayed 20 mg PO DAILY 05/15/21 07/11/21 07/10/21 History release levothyroxine 100 mcg tablet 100 mcg PO DAILY 05/15/21 07/11/21 07/10/21 History lorazepam 0.5 mg tablet 0.5 mg PO DAILY@1800 05/15/21 07/11/21 07/10/21 History metformin 500 mg tablet 500 mg PO BID 05/15/21 07/11/21 07/10/21 History metoprolol tartrate 25 mg tablet 25 mg PO BID 05/15/21 07/11/21 07/10/21 History polyethylene glycol 3350 17 gram 17 g PO DAILY 05/15/21 07/11/21 07/10/21 History oral powder packet trazodone 50 mg tablet 25 mg PO BEDTIME 05/15/21 07/11/21 07/10/21 History Physical Exam Vital Signs: Vital Signs: Last Vital Signs Temp 98.7 F 05/21/21 19:28 Pulse 82 05/21/21 20:35 Resp 19 05/21/21 19:28 BP 140/66 H 05/21/21 20:35 Pulse Ox 96 05/21/21 19:28 Body Mass Index 32.8 Const: General: cooperative HENMT: Head: Yes normal to inspection Mouth: Normal oral and palatal mucosa present Resp: Effort & Inspection: normal respiratory effort Cardio: Rate: regular rate GI: Palpation (GI): Soft to palpation and nontender Skin: General skin exam: no rashes or lesions noted Extrem: Other: deep left heel ulcer,necrotic serpiginous redness leg Results Labs CBC & Chem 7: 05/25/21 06:33 05/25/21 06:33 Labs: BMP 05/21/21 06:10 Sodium 142 Potassium 3.8 Chloride 111 H Carbon Dioxide 25 BUN 10 Creatinine 0.66 Calcium 7.8 L Microbiology Microbiology Results: Microbiology 05/18/21 22:12 Blood - Venous Blood Culture - Preliminary No growth after 48 hours. 05/18/21 22:16 Blood - Venous Blood Culture - Preliminary No growth after 48 hours. 05/15/21 04:59 Blood - Venous Blood Culture - Final No growth after 5 days. 05/15/21 04:59 Blood - Venous Blood Culture - Final No growth after 5 days. 05/17/21 05:28 Blood - Venous Blood Culture - Preliminary No growth after 48 hours. 05/17/21 05:28 Blood - Venous Blood Culture - Preliminary No growth after 48 hours. Assessment and Plan (1) Ulcer of left heel: Status: Acute Would continue IV antibiotics Likely may need Ertapenem for six weeks unless MRSA Surgical debridement (2) Hypotension: Status: Resolved (3) Cellulitis: Status: Resolved
[2021-05-22] VITALS (7 sets, daily range): BP systolic 119–147; BP diastolic 59–76; PULSE 73–93; RESP 18–20; TEMP 36.3–37.1; O2SAT 98–99
[2021-05-22] MEDS: Clindamycin Phosphate/D5W 600 MG/50 ML PIGGYBACK 100 MG IV ×3 (05:37→21:02)
[2021-05-22] MEDS: Levothyroxine Sodium 100 MCG TABLET PO (05:37)
[2021-05-22] MEDS: Chlorhexidine Gluc Oral Rinse 15 ML MOUTHWASH BUCCAL ×2 (08:44→21:02)
[2021-05-22] MEDS: Enoxaparin Sodium 40 MG/0.4 ML SYRINGE SUBCUT (08:44)
[2021-05-22] MEDS: Docusate Sodium 100 MG CAPSULE PO ×2 (08:44→21:02)
[2021-05-22] MEDS: Metoprolol Tartrate 12.5 MG HALFTAB PO ×2 (08:45→21:01)
[2021-05-22] MEDS: 0.9 % Sodium Chloride Flush 3 ML SYRINGE IVFLUSH ×2 (08:45→21:02)
[2021-05-22] MEDS: ARIPiprazole 15 MG TABLET PO (08:45)
[2021-05-22] MEDS: Aspirin Enteric Coated 81 MG TABLET.DR PO (08:45)
[2021-05-22] MEDS: DULoxetine HCl 20 MG CAPSULE.DR PO (08:45)
--- NOTE | 2021-05-22 09:42 | MHC.SLORD ---
Speech Language Pathology Order Status: Pt refused PO trials this morning. Pt is currently on PUREED (NDD1) solids and NECTAR THICK LIQUIDS with pills CRUSHED in PUREE. 1:1 FEED. [place] aspiration precautions. NO STRAWS.
[2021-05-22 11:14] LABS: Glucose, Whole Blood 126 mg/dL (60-115)
[2021-05-22 11:15] LABS: Glucose, Whole Blood 149 mg/dL (60-115)
--- NOTE | 2021-05-22 12:25 | P.PNIM_ITS ---
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 Awake alert, no acute distress Neck: supple,no jvd Lungs: clear to auscultation bilaterally Heart: irregularly irregular, no murmurs Abd: soft, non-tender, non-distended Ext:? Improving erythema of the left leg extending from hip down to ankle ,left heel ulcer dressing in place, lower extremity edema Skin:? Hyperemic rash of groin Neuro: alert, no facial droop, speech clear Psych: impaired insight Objective Data Current Medications Generic Name Dose Route Start Last Admin Trade Name Freq PRN Reason Stop Dose Admin Acetaminophen 650 mg 05/15/21 09:04 Acetaminophen 325 Mg Tablet PO Q6H PRN fever/pain Aripiprazole 15 mg 05/16/21 09:00 05/22/21 08:45 Aripiprazole 15 Mg Tablet PO 15 mg DAILY CARRIE Administration Aspirin 81 mg 05/16/21 09:00 05/22/21 08:45 Aspirin Enteric Coated 81 Mg Tablet. PO 81 mg DAILY CARRIE Administration Chlorhexidine Gluconate 15 ml 05/15/21 21:00 05/22/21 08:44 Chlorhexidine Gluc Oral Rinse 15 Ml Mouthwash BUCCAL 15 ml BID CARRIE Administration Docusate Sodium 100 mg 05/15/21 09:15 05/22/21 08:44 Docusate Sodium 100 Mg Capsule PO 100 mg BID CARRIE Administration Duloxetine HCl 20 mg 05/16/21 09:00 05/22/21 08:45 Duloxetine Hcl 20 Mg Capsule. PO 20 mg DAILY CARRIE Administration Enoxaparin Sodium 40 mg 05/15/21 10:00 05/22/21 08:44 Enoxaparin Sodium 40 Mg/0.4 Ml Syringe SUBCUT 40 mg Q24H CARRIE Administration Clindamycin Phosphate 600 mg in 50 mls @ 100 mls/hr 05/21/21 14:00 05/22/21 06:11 Cleocin IV Infused Q8H CARRIE Infusion Insulin Human Lispro 0 unit 05/15/21 13:30 05/22/21 11:17 Insulin Lispro 100 Unit/Ml 3 Ml Vial SUBCUT Not Given QIDACHS [facility] Protocol Levothyroxine Sodium 100 mcg 05/16/21 06:30 05/22/21 05:37 Levothyroxine Sodium 100 Mcg Tablet PO 100 mcg DAILY@0630 CARRIE Administration Metoprolol Tartrate 12.5 mg 05/19/21 21:00 05/22/21 08:45 Metoprolol Tartrate 12.5 Mg Halftab PO 12.5 mg BID CARRIE Administration Protocol Ondansetron HCl 4 mg 05/15/21 09:01 Ondansetron Hcl 4 Mg/2 Ml Vial IVPUSH Q6H PRN nausea/vomitingadd Oxycodone HCl 5 mg 05/18/21 11:26 05/21/21 08:55 Oxycodone Hcl Immed Release 5 Mg Tablet PO 5 mg Q6H PRN Administration Pain, Severe (Pain Scale 7-10) Pharmacy Consult 1 each 05/15/21 07:16 Consult Rx Perform Med Rec MISCELLANE ONCE PRN Consult order Polyethylene Glycol 17 gm 05/15/21 09:01 Polyethylene Glycol 3350 17 Gm Powd.Pack PO DAILY PRN constipation Senna 17.2 mg 05/15/21 21:00 05/21/21 20:33 Sennosides 8.6 Mg Tablet PO 17.2 mg BEDTIME CARRIE Administration Sodium Chloride 3 ml 05/15/21 16:00 05/22/21 08:45 0.9 % Sodium Chloride Flush 3 Ml Syringe IVFLUSH 3 ml QSHIFT CARRIE Administration Trazodone HCl 25 mg 05/15/21 21:00 05/21/21 20:33 Trazodone Hcl 25 Mg Halftab PO 25 mg BEDTIME CARRIE Administration Valproic Acid 500 mg 05/16/21 09:00 05/22/21 08:44 Valproic Acid (As Sodium Salt) 250 Mg/5 Ml Solution PO 500 mg BID CARRIE Administration Labs CBC & Chem 7: 05/20/21 05:03 05/21/21 06:10 Labs: Laboratory Results - last 24 hr 05/21/21 05/21/21 05/22/21 16:28 20:32 07:11 POC Glucose 148 H 125 H 126 H 05/22/21 11:10 POC Glucose 149 H Microbiology Microbiology Results: Microbiology 05/17/21 05:28 Blood Culture - Final Blood - Venous No growth after 5 days. 05/17/21 05:28 Blood Culture - Final Blood - Venous No growth after 5 days. Assessment and Plan (1) Ulcer of left heel: Status: Acute (2) Hypotension: Status: Acute (3) Hypertension: Status: Acute (4) Cellulitis: Status: Acute (5) SHREYAS (acute kidney injury): Status: Acute Assessment and Plan: 75 year-old female long-term care resident of [facility] with a history of recurrent sepsis from lower extremity cellulitis with bacteremia, atrial fibrillation, vascular dementia, and schizoaffective disorder presenting with worsening lethargy with LLE cellulitis, failed outpatient doxycycline admitted with severe sepsis and SHREYAS #?severe sepsis from LLE cellulitis/erysipelas - sepsis resolved, pain improved,redness is slowly improving, s/p iv pi peracillin/tazobactam 7D,doxy 3D and s/p vanco x 5 days ? MRSA nares negative ? WBC normalized, no fever, continue oxycodone for pain control, recommend frequent position change.? ? Blood pressure low but stable, dose of metoprolol reduced to 12.5 b.i.d. initial and repeat blood cultures both are negative ? on iv clindamycin 600 mg Q 8 hour per ID recommendation ? Continue Pascal catheter due to significant groin rash for skin integrity # hypokalemia likely related to IV fluid, repleted and normalized # left heel decubitus ulcer patient seen by General surgery they recommend vascular surgery evaluation, await vascular surgery input,continue heel protectors # AF/RVR - rate-controlled on metoprolol, continue ASA; not on full AC due to fall risk, transthoracic echocardiogram showed preserved EF 60-65%, no wall motion abnormalities, diastolic function is indeterminate,?? no valvular disease noted # septic encephalopathy - confusion and lethargy resolved, seems to be at baseline mental status, has baseline dementia, answering questions appropriately # SHREYAS - likely due to sepsis, creatinine normalized with IV fluid. # chronic anemia with elevated MCV, B12 above normal range, will check folic acid. # thrombocytopenia - likely due to sepsis; platelet count improved, continue to monitor CBC while on LMWH # HTN - noted to have hypotension, improved with IV hydration, continue metoprolol dose lowered to 12.5, follow BP closely # schizoaffective disorder - continue valproate, aripiprazole, duloxetine, lorazepam and trazodone, no behavioral issues noted # dementia, vascular - continue psychiatric medications as above; frequent re-orientation # hypothyroidism - continue LT4 # DM2, A1c 7.1 - blood sugar stable,continue to follow POC + correction-dose lispro; hold MTF possible further workup by vascular surgery # VTE ppx - LMWH Quality Stroke Does the patient have a stroke diagnosis?: No VTE Prior VTE?: No VTE Risk Level:: Medical - moderate - high VTE Device Contraindication: N/A - Device Ordered VTE Drug Contraindication: N/A - Med Ordered
[2021-05-22 16:11] LABS: Glucose, Whole Blood 143 mg/dL (60-115)
--- NOTE | 2021-05-22 20:19 | PM.CNGS ---
History of Present Illness Consult details Consult date: 05/22/21 Reason for consult: wound care Narrative: 75-year-old female presents for evaluation of bilateral lower extremity heels. She originally presented to the hospital with altered mental status recurrent bouts of cellulitis of the lower extremities. She has actually been treated at outside institutions 3-4 different occasions. She now presents to us for follow-up evaluation of lower extremity swelling and edema. She has bilateral heel ulcerations left greater than right. Of note it appears that she is mostly nonambulatory and has significant pressure on bilateral heels. All of the history was obtained from the chart as patient is mostly non communicative Review of Systems Constitutional: Constitutional: Reports as per HPI ENT: Reports system reviewed and no additional complaints, except as documented Cardiovascular: Cardiovascular: Denies chest pain, Denies chest pain at rest and Denies chest pain with activity Respiratory: Respiratory: Denies chest congestion and Denies cough Gastrointestinal: Gastrointestinal: Reports no additional gastrointestinal complaints Musculoskeletal: Musculoskeletal: Denies abnormal gait Integumentary/Breasts: Skin/Breast: Reports pruritus and Denies wounds Neurologic: Reports system reviewed and no additional complaints, except as documented and Denies abnormal gait Psychiatric: Psychiatric: Denies no additional psychiatric complaints PMFSH Past Medical History Medical History Atrial fibrillation Chronic constipation Hypothyroidism Recurrent bacteremia Recurrent cellulitis Schizoaffective disorder Trimalleolar fracture of ankle, closed Type 2 diabetes mellitus Vascular dementia Vitamin B12 deficiency Vitamin D deficiency Family History Family history: reviewed and not pertinent Surgical History Surgical History Status post ORIF of fracture of ankle Social History Social History Household Members: None Housing: Half-Way Do you presently have visiting nurse or other home services: No Patient Tobacco Use Status: Never used Tobacco Use of substances other than those prescribed or required for medical reasons: No Currently Displaying Signs/Symptoms of Drug Intoxication Withdrawal: No Have you been hit, kicked, punched, or otherwise hurt by someone within the past year? If so, by whom?: No Do you feel safe in your current relationship?: No Is there a partner from a previous relationship who is making you feel unsafe now?: No Are you made to feel afraid or neglected: No Advance Directives: Yes (JULES, HCP) Advance Directives on File: Yes Advance Directives Date on File: 05/15/21 Do you have thoughts of harming others: None Do you have a plan to hurt others: No Plan Recently lost weight without trying: No Nutrition Risks: No Nutritional Risk Patient : No : No Poor oral hygiene: No service: No Current occupational status: disabled Meds Allergies Allergy/AdvReac Type Severity Reaction Status Date / Time No Known Allergies Allergy Unverified 05/15/21 04:51 Active Medications: Current Medications Generic Name Dose Route Start Last Admin Trade Name Freq PRN Reason Stop Dose Admin Acetaminophen 650 mg 05/15/21 09:04 Acetaminophen 325 Mg Tablet PO Q6H PRN fever/pain Aripiprazole 15 mg 05/16/21 09:00 05/22/21 08:45 Aripiprazole 15 Mg Tablet PO 15 mg DAILY CARRIE Administration Aspirin 81 mg 05/16/21 09:00 05/22/21 08:45 Aspirin Enteric Coated 81 Mg Tablet. PO 81 mg DAILY CARRIE Administration Chlorhexidine Gluconate 15 ml 05/15/21 21:00 05/22/21 08:44 Chlorhexidine Gluc Oral Rinse 15 Ml Mouthwash BUCCAL 15 ml BID CARRIE Administration Docusate Sodium 100 mg 05/15/21 09:15 05/22/21 08:44 Docusate Sodium 100 Mg Capsule PO 100 mg BID CARRIE Administration Duloxetine HCl 20 mg 05/16/21 09:00 05/22/21 08:45 Duloxetine Hcl 20 Mg Capsule. PO 20 mg DAILY CARRIE Administration Enoxaparin Sodium 40 mg 05/15/21 10:00 05/22/21 08:44 Enoxaparin Sodium 40 Mg/0.4 Ml Syringe SUBCUT 40 mg Q24H CARRIE Administration Clindamycin Phosphate 600 mg in 50 mls @ 100 mls/hr 05/21/21 14:00 05/22/21 14:26 Cleocin IV Infused Q8H CARRIE Infusion Insulin Human Lispro 0 unit 05/15/21 13:30 05/22/21 16:07 Insulin Lispro 100 Unit/Ml 3 Ml Vial SUBCUT Not Given QIDACHS [facility] Protocol Levothyroxine Sodium 100 mcg 05/16/21 06:30 05/22/21 05:37 Levothyroxine Sodium 100 Mcg Tablet PO 100 mcg DAILY@0630 CARRIE Administration Metoprolol Tartrate 12.5 mg 05/19/21 21:00 05/22/21 08:45 Metoprolol Tartrate 12.5 Mg Halftab PO 12.5 mg BID CARRIE Administration Protocol Ondansetron HCl 4 mg 05/15/21 09:01 Ondansetron Hcl 4 Mg/2 Ml Vial IVPUSH Q6H PRN nausea/vomitingadd Oxycodone HCl 5 mg 05/18/21 11:26 05/21/21 08:55 Oxycodone Hcl Immed Release 5 Mg Tablet PO 5 mg Q6H PRN Administration Pain, Severe (Pain Scale 7-10) Pharmacy Consult 1 each 05/15/21 07:16 Consult Rx Perform Med Rec MISCELLANE ONCE PRN Consult order Polyethylene Glycol 17 gm 05/15/21 09:01 Polyethylene Glycol 3350 17 Gm Powd.Pack PO DAILY PRN constipation Senna 17.2 mg 05/15/21 21:00 05/21/21 20:33 Sennosides 8.6 Mg Tablet PO 17.2 mg BEDTIME CARRIE Administration Sodium Chloride 3 ml 05/15/21 16:00 05/22/21 16:07 0.9 % Sodium Chloride Flush 3 Ml Syringe IVFLUSH Not Given QSHIFT CARRIE Trazodone HCl 25 mg 05/15/21 21:00 05/21/21 20:33 Trazodone Hcl 25 Mg Halftab PO 25 mg BEDTIME CARRIE Administration Valproic Acid 500 mg 05/16/21 09:00 05/22/21 08:44 Valproic Acid (As Sodium Salt) 250 Mg/5 Ml Solution PO 500 mg BID CARRIE Administration Home Medications Medication Instructions Recorded Confirmed Last Taken Type Lactobacillus rhamnosus GG 10 1 cap PO BID 05/15/21 05/15/21 05/14/21 History billion cell capsule (Culturelle) aripiprazole 15 mg tablet 15 mg PO DAILY 05/15/21 05/15/21 05/14/21 History aspirin 81 mg tablet,delayed 81 mg PO DAILY 05/15/21 05/15/21 05/14/21 History release chlorhexidine gluconate 0.12 % 15 ml BUCCAL BID 05/15/21 05/15/21 05/14/21 History mouthwash (Peridex) divalproex 500 mg tablet,delayed 500 mg PO BID 05/15/21 05/15/21 05/14/21 History release doxycycline hyclate 100 mg capsule 100 mg PO BID 05/15/21 05/15/21 05/14/21 History duloxetine 20 mg capsule,delayed 20 mg PO DAILY 05/15/21 05/15/21 05/14/21 History release levothyroxine 100 mcg tablet 100 mcg PO DAILY 05/15/21 05/15/21 05/14/21 History lorazepam 0.5 mg tablet 0.5 mg PO DAILY@1800 05/15/21 05/15/21 05/14/21 History metformin 500 mg tablet 500 mg PO BID 05/15/21 05/15/21 05/14/21 History metoprolol tartrate 25 mg tablet 25 mg PO BID 05/15/21 05/15/21 05/14/21 History polyethylene glycol 3350 17 gram 17 g PO DAILY 05/15/21 05/15/21 05/14/21 History oral powder packet trazodone 50 mg tablet 25 mg PO BEDTIME 05/15/21 05/15/21 05/14/21 History Physical Exam Vital Signs: Vital Signs: Last Vital Signs Temp 97.3 F 05/22/21 19:14 Pulse 88 05/22/21 19:14 Resp 18 05/22/21 19:14 BP 119/59 L 05/22/21 19:14 Pulse Ox 98 05/22/21 19:14 Body Mass Index 32.8 Const: General: cooperative, healthy appearing and comfortable Orientation/consciousness: oriented to person, oriented to place and oriented to time Neck: Carotids: no bruits Chest: Chest palpation & inspection: normal inspection of the chest and normal palpation of entire chest wall Resp: Effort & Inspection: normal respiratory effort and able to speak in complete sentences Cardio: Rate: regular rate Heart sounds: S1 normal heart sound present and S2 normal heart sound present Peripheral pulses: Peripheral pulses 2+ throughout GI: Inspection: Yes normal to inspection Skin: Other: +2 edema right, +3 left General skin exam: dry skin Neuro: General: oriented to person, oriented to place and oriented to time Extrem: General: Yes edema Right lower extremity: full ROM, normal capillary refill and edema Left lower extremity: full ROM, normal capillary refill and edema Psych: Mental Status: mental status grossly normal Results Labs Result diagrams: 05/20/21 05:03 05/21/21 06:10 Labs: Abnormal lab results 05/21/21 05/22/21 05/22/21 Range/Units 20:32 07:11 11:10 POC Glucose 125 H 126 H 149 H (60-115) mg/dL 05/22/21 Range/Units 15:56 POC Glucose 143 H (60-115) mg/dL Urine 05/15/21 Range/Units 05:12 Urine Color DARK YELLOW Urine Appearance CLOUDY Urine pH 6.0 (5.0-8.0) Ur Specific [place] >= 1.030 H (1.005-1.025) Urine Protein 2+ H (NEG-TRACE) MG/DL Urine Glucose (UA) 500 H (NEG) MG/DL All other labs normal. Assessment and Plan (1) Ulcer of left heel: Status: Acute in short patient has nonhealing bilateral heel ulcerations. I do not believe this is arterial in nature is as I am able to appreciate bilateral DP pulses. She does have significant edema of the lower extremities. It is unclear with the etiology of this swelling is. She can be worked up as an outpatient for venous insufficiency. At the current time the ideal would be to offload as much as possible in to try to control the swelling is much as possible. We will monitor her status with you. No testing at the current time is required. She can see us as an outpatient. Thank you for allowing us to assist in her care. If there are any questions or concerns please do not hesitate to contact us. Procedures Date of Service Date of Service: 05/22/21
[2021-05-22 20:27] LABS: Glucose, Whole Blood 122 mg/dL (60-115)
[2021-05-22] MEDS: Acetaminophen 325 MG TABLET 650 MG PO (21:00)
[2021-05-22] MEDS: Sennosides 8.6 MG TABLET 17.2 MG PO (21:01)
[2021-05-22] MEDS: traZODone HCL 25 MG HALFTAB PO (21:02)
[2021-05-23] VITALS (8 sets, daily range): BP systolic 90–154; BP diastolic 60–76; PULSE 69–93; RESP 15–20; TEMP 36.1–36.6; O2SAT 96–100
[2021-05-23] MEDS: Clindamycin Phosphate/D5W 600 MG/50 ML PIGGYBACK 100 MG IV ×3 (05:33→21:13)
[2021-05-23] MEDS: Levothyroxine Sodium 100 MCG TABLET PO (05:33)
[2021-05-23 07:32] LABS: Glucose, Whole Blood 117 mg/dL (60-115)
[2021-05-23] MEDS: ARIPiprazole 15 MG TABLET PO (07:48)
[2021-05-23] MEDS: Metoprolol Tartrate 12.5 MG HALFTAB PO ×2 (07:48→21:13)
[2021-05-23] MEDS: DULoxetine HCl 20 MG CAPSULE.DR PO (07:48)
[2021-05-23] MEDS: Aspirin Enteric Coated 81 MG TABLET.DR PO (07:48)
[2021-05-23] MEDS: Chlorhexidine Gluc Oral Rinse 15 ML MOUTHWASH BUCCAL ×2 (07:49→21:13)
[2021-05-23] MEDS: 0.9 % Sodium Chloride Flush 3 ML SYRINGE IVFLUSH ×3 (07:50→21:13)
[2021-05-23] MEDS: Enoxaparin Sodium 40 MG/0.4 ML SYRINGE SUBCUT (09:54)
[2021-05-23] MEDS: Furosemide 20 MG/2 ML VIAL IVPUSH (09:54)
[2021-05-23 11:16] LABS: Glucose, Whole Blood 173 mg/dL (60-115)
[2021-05-23] MEDS: Insulin Lispro 100 UNIT/ML 3 ML VIAL SUBCUT ×2 (11:26→21:14)
--- NOTE | 2021-05-23 11:26 | MHC.SL.DTX ---
Pre-Treatment Diet: PUREED (NDD1) solids NECTAR THICK liquid CRUSHED pills in PUREE Changes made to current diet?: Yes: UPGRADE Dysphasia Diet Status: Upgrade Liquid Consistency and Strategies: Liquid Intake Recommendation: Thin Compensatory Strategies for Safe Swallow: Small Sips No Straws Compensatory Strategies for Safe Swallow(b): Sitting Upright (90 deg) No Straw Liquids from Cup Small Bites and Sips Alternate Liquids/Solids Oral Check Solid Food Consistency: Dietary Recommendations: Pureed (NDD1) Additional Modifications to Solids: Oral Medication Intake: Crushed with Puree Strategies and Precautions to be Taken for Safe Swallow: Compensatory Swallowing Status: Sitting Upright (90 deg) No Straw Liquids from Cup Small Bites and Sips Alternate Liquids/Solids Oral Check Supervision While Eating and/Drinking: Total Assistance Foods to Avoid: NO STRAWS!!! Swallowing Recommended Treatments: Compens. Strategy Educat. Level of Impact on: Daily activities: Mild Interpersonal interactions: Mild Education: None Employment: None Community: Mild Prognosis for Improvement: Guarded Recommendation for Speech: Inpatient Speech Therapy Comment: HEALTH CARE MARKETING MANAGER will continue to follow during hospitalization, as appropriate. Frequency/Duration: Date Range for Service Req: Timeline to reassess: Additional Comments: Treatment: Pt was seen this morning for dysphagia therapy. Pt upright in bed upon this HEALTH CARE MARKETING MANAGER's arrival. Pt agreed to PO trials and requested water. Pt tolerated water via tsp and cup sip with no overt s/s aspiration. Pt able to bring cup to mouth and take sip independently. No overt s/s aspiration noted when given a bite of applesauce. Pt attempted to grab spoon, though gave up midway through. More advanced solids were not trialed due to concern for pt safety and reduced cognition. Assessment: Mgmt Analyst Clinican/Clinical Fellow: No Supervisory Statement: I have reviewed and agree with the student/clinical fellow's documentation: N/A Speech Language Pathologist: Karen Hammond M.A. CCC-HEALTH CARE MARKETING MANAGER
--- NOTE | 2021-05-23 13:25 | MHC.CLN ---
F/U PO INTAKE REMAINS THE SAME 25-50% DIET RX: 2000DM PUREED WITH NT LIQ-APPROPRIATE MONORAIL HELPER REC PUREED WITH THIN LIQUIDS 8/4 PT RECEIVING GLUCERNA AND JAYDEN TO PROMOTE WOUND HEALING SUPPLEMENTS PROVIDE 634KCALS, 25G PROTEIN CONTINUE TO MONITOR PO INTAKE CLOSELY
--- NOTE | 2021-05-23 15:29 | MHC.CM.PN ---
Female 75 DX Cellulitis sepsis afib jamee DP return to [facility] via BLS. ID consult pending.
[2021-05-23 16:17] LABS: Glucose, Whole Blood 156 mg/dL (60-115)
--- NOTE | 2021-05-23 17:10 | HO.PM.IMPN ---
Subjective Subjective Date of Service: 05/23/21 Interval History: Patient awake alert say pain scale is 0 today, does not verbalize much Review of Systems General no fever RETAIL SALES ASSOCIATE BILINGUAL no headache, no dizziness CVS no chest pain GI no nausea, no vomiting, no diarrhea Cannot obtain detail review of systems due to dementia and schizo affective disorder Physical Exam Vital Signs: Vital Signs: Last Vital Signs Temp 98 F 05/23/21 15:57 Pulse 92 05/23/21 15:57 Resp 15 05/23/21 15:57 BP 90/62 05/23/21 15:57 Pulse Ox 98 05/23/21 15:57 Body Mass Index 32.8 GEN:? Awake alert, no acute distress Neck: supple,no jvd Lungs: clear to auscultation bilaterally Heart: irregularly irregular, no murmurs Abd: soft, non-tender, non-distended Ext:? Improving erythema of the left leg extending from hip down to left foot ,left heel ulcer dressing in place, lower extremity edema including both feet. Skin:? Hyperemic rash of groin Neuro: alert, no facial droop, speech clear Psych: impaired insight Pascal catheter clear urine Objective Data Current Medications Generic Name Dose Route Start Last Admin Trade Name Freq PRN Reason Stop Dose Admin Acetaminophen 650 mg 05/15/21 09:04 05/22/21 21:00 Acetaminophen 325 Mg Tablet PO 650 mg Q6H PRN Administration fever/pain Aripiprazole 15 mg 05/16/21 09:00 05/23/21 07:48 Aripiprazole 15 Mg Tablet PO 15 mg DAILY CARRIE Administration Aspirin 81 mg 05/16/21 09:00 05/23/21 07:48 Aspirin Enteric Coated 81 Mg Tablet. PO 81 mg DAILY CARRIE Administration Chlorhexidine Gluconate 15 ml 05/15/21 21:00 05/23/21 07:49 Chlorhexidine Gluc Oral Rinse 15 Ml Mouthwash BUCCAL 15 ml BID CARRIE Administration Docusate Sodium 100 mg 05/15/21 09:15 05/23/21 09:53 Docusate Sodium 100 Mg Capsule PO Not Given BID CARRIE Duloxetine HCl 20 mg 05/16/21 09:00 05/23/21 07:48 Duloxetine Hcl 20 Mg Capsule. PO 20 mg DAILY CARRIE Administration Enoxaparin Sodium 40 mg 05/15/21 10:00 05/23/21 09:54 Enoxaparin Sodium 40 Mg/0.4 Ml Syringe SUBCUT 40 mg Q24H CARRIE Administration Clindamycin Phosphate 600 mg in 50 mls @ 100 mls/hr 05/21/21 14:00 05/23/21 14:07 Cleocin IV Infused Q8H CARRIE Infusion Insulin Human Lispro 0 unit 05/15/21 13:30 05/23/21 11:26 Insulin Lispro 100 Unit/Ml 3 Ml Vial SUBCUT 2 unit QIDACHS [facility] Administration Protocol Levothyroxine Sodium 100 mcg 05/16/21 06:30 05/23/21 05:33 Levothyroxine Sodium 100 Mcg Tablet PO 100 mcg DAILY@0630 CARRIE Administration Metoprolol Tartrate 12.5 mg 05/19/21 21:00 05/23/21 07:48 Metoprolol Tartrate 12.5 Mg Halftab PO 12.5 mg BID CARRIE Administration Protocol Ondansetron HCl 4 mg 05/15/21 09:01 Ondansetron Hcl 4 Mg/2 Ml Vial IVPUSH Q6H PRN nausea/vomitingadd Pharmacy Consult 1 each 05/15/21 07:16 Consult Rx Perform Med Rec MISCELLANE ONCE PRN Consult order Polyethylene Glycol 17 gm 05/15/21 09:01 Polyethylene Glycol 3350 17 Gm Powd.Pack PO DAILY PRN constipation Senna 17.2 mg 05/15/21 21:00 05/22/21 21:01 Sennosides 8.6 Mg Tablet PO 17.2 mg BEDTIME CARRIE Administration Sodium Chloride 3 ml 05/15/21 16:00 05/23/21 07:50 0.9 % Sodium Chloride Flush 3 Ml Syringe IVFLUSH 3 ml QSHIFT CARRIE Administration Trazodone HCl 25 mg 05/15/21 21:00 05/22/21 21:02 Trazodone Hcl 25 Mg Halftab PO 25 mg BEDTIME CARRIE Administration Valproic Acid 500 mg 05/16/21 09:00 05/23/21 07:49 Valproic Acid (As Sodium Salt) 250 Mg/5 Ml Solution PO 500 mg BID CARRIE Administration Labs CBC & Chem 7: 05/20/21 05:03 05/21/21 06:10 Labs: Laboratory Results - last 24 hr 05/22/21 05/23/21 05/23/21 20:23 07:29 11:03 POC Glucose 122 H 117 H 173 H 05/23/21 16:13 POC Glucose 156 H Assessment and Plan (1) Ulcer of left heel: Status: Acute (2) Hypotension: Status: Acute (3) Hypertension: Status: Acute (4) Severe sepsis: Status: Acute (5) Cellulitis: Status: Acute (6) SHREYAS (acute kidney injury): Status: Acute Assessment and Plan: 75 year-old female long-term care resident of [facility] with a history of recurrent sepsis from lower extremity cellulitis with bacteremia, atrial fibrillation, vascular dementia, and schizoaffective disorder presenting with worsening lethargy with LLE cellulitis, failed outpatient doxycycline admitted with severe sepsis and SHREYAS #?severe sepsis from LLE cellulitis/erysipelas - sepsis resolved, pain improved,redness is slowly improving, s/p iv piperacillin/tazobactam? 7D,doxy 3D and s/p vanco x 5 days ? MRSA nares negative ? WBC normalized, no fever, continue oxycodone for pain control, recommend frequent position change.? ? Blood pressure low but stable, dose of metoprolol reduced to 12.5 b.i.d. initial and repeat blood cultures both are negative ? on iv clindamycin 600 mg Q 8 hour day 3 ,per ID recommendation ? Continue Pascal catheter due to significant groin rash for skin integrity # hypokalemia likely related to IV fluid, repleted and normalized # left heel decubitus ulcer patient seen by General surgery they recommend vascular surgery evaluation, patient seen by Dr. Meeks case discussed with him he feels patient does not have vascular disease, he recommend outpatient follow-up Patient with bilateral lower extremity edema, has normal renal function, normal liver function, echo showed no significant abnormality, patient has anemia and low albumin likely contributing To edema, patient has been placed on protein supplements, give 1 dose of IV Lasix today, cannot use daily diuretics due to low blood pressure. Dr. Shelton recommend left heel CT scan to rule out osteo # AF/RVR - rate-controlled on metoprolol, continue ASA; not on full AC due to fall risk, transthoracic echocardiogram showed preserved EF 60-65%, no wall motion abnormalities, diastolic function is ?? indeterminate,?? no valvular disease noted # septic encephalopathy - confusion and lethargy resolved, seems to be at baseline mental status, has baseline dementia, answering questions appropriately # SHREYAS - likely due to sepsis, creatinine normalized with IV fluid. # chronic anemia with elevated MCV, B12 above normal range # thrombocytopenia - likely due to sepsis; platelet count improved, continue to monitor CBC while on LMWH # HTN - noted to have hypotension, improved with IV hydration, continue metoprolol dose lowered to 12.5, follow BP closely # schizoaffective disorder - continue valproate, aripiprazole, duloxetine, lorazepam and trazodone, no behavioral issues noted # dementia, vascular - continue psychiatric medications as above; frequent re-orientation # hypothyroidism - continue LT4 # DM2, A1c 7.1 - blood sugar stable,continue to follow POC + correction-dose lispro; hold MTF possible further workup by vascular surgery # VTE ppx - LMWH Quality Stroke Does the patient have a stroke diagnosis?: No VTE Prior VTE?: No VTE Risk Level:: Medical - moderate - high VTE Device Contraindication: N/A - Device Ordered VTE Drug Contraindication: N/A - Med Ordered
[2021-05-23 20:54] LABS: Glucose, Whole Blood 160 mg/dL (60-115)
[2021-05-23] MEDS: Sennosides 8.6 MG TABLET 17.2 MG PO (21:12)
[2021-05-23] MEDS: traZODone HCL 25 MG HALFTAB PO (21:12)
[2021-05-23] MEDS: Docusate Sodium 100 MG CAPSULE PO (21:13)
[2021-05-24 03:01] VITALS: BP 136/63; PULSE 79; RESP 18; TEMP 36; O2SAT 100
[2021-05-24] MEDS: Levothyroxine Sodium 100 MCG TABLET PO (05:13)
[2021-05-24] MEDS: Clindamycin Phosphate/D5W 600 MG/50 ML PIGGYBACK 100 MG IV ×3 (05:13→22:59)
[2021-05-24 06:12] LABS: Hematocrit 29.3 % (37-47); Hemoglobin 9.5 g/dl (12.0-16.0); Mean Corpuscular HGB Conc 32.4 g/dl (31.0-35.0); Mean Corpuscular Hemoglobin 32.8 pg (27.0-33.0); Mean Platelet Volume 10.4 fL (9.4-12.3); Platelet Count 264 X10*3/uL (160-400); Red Cell Distribution Width 15.1 % (11.0-16.0); White Blood Count 8.9 X10*3/uL (4.8-10.8)
[2021-05-24 06:36] LABS: Anion Gap 12 (12-20); Blood Urea Nitrogen 12 mg/dL (9-16); Calcium 7.9 mg/dL (8.4-10.2); Carbon Dioxide 29 mmol/L (22-29); Chloride 103 mmol/L (96-108); Creatinine Clr Calc Pharmacy 77.2; Estimated Glomerular Filt Rate > 60; Glucose Random 167 mg/dL (60-115); Potassium 3.7 mmol/L (3.3-5.1); Sodium 140 mmol/L (135-145)
[2021-05-24 07:16] VITALS: BP 137/62; PULSE 73; RESP 18; TEMP 36.4; O2SAT 99
[2021-05-24 07:21] LABS: Glucose, Whole Blood 145 mg/dL (60-115)
[2021-05-24] MEDS: Chlorhexidine Gluc Oral Rinse 15 ML MOUTHWASH BUCCAL ×2 (08:45→22:59)
[2021-05-24] MEDS: Metoprolol Tartrate 12.5 MG HALFTAB PO ×2 (08:46→23:31)
[2021-05-24] MEDS: ARIPiprazole 15 MG TABLET PO (08:46)
[2021-05-24] MEDS: DULoxetine HCl 20 MG CAPSULE.DR PO (08:46)
[2021-05-24] MEDS: Aspirin Enteric Coated 81 MG TABLET.DR PO (08:46)
[2021-05-24] MEDS: 0.9 % Sodium Chloride Flush 3 ML SYRINGE IVFLUSH ×3 (08:47→23:01)
[2021-05-24] MEDS: Enoxaparin Sodium 40 MG/0.4 ML SYRINGE SUBCUT (10:08)
--- NOTE | 2021-05-24 10:48 | MHC.SLORD ---
Speech Language Pathology Order Status: JEWELRY ENAMELER checked in with RN this morning. Patient is NPO for procedure. No PO trials this morning. When cleared for PO, patient is on pureed (NDD1) solids and thin liquids (no straws). JEWELRY ENAMELER will continue to follow.
[2021-05-24 11:13] VITALS: BP 149/69; PULSE 91; RESP 18; TEMP 36.6; O2SAT 96
[2021-05-24 11:19] LABS: Glucose, Whole Blood 128 mg/dL (60-115)
--- NOTE | 2021-05-24 14:09 | HO.PM.IMPN ---
Subjective Subjective Date of Service: 05/24/21 Interval History: seen and examined this morning no overnight events somewhat vague, she does report some pain on left foot with palpation Review of Systems Review of Systems: Yes all other systems are reviewed and are negative Constitutional Constitutional: Denies chills and Denies fever(s) Cardiovascular Cardiovascular: Denies chest pain Respiratory Respiratory: Denies cough Gastrointestinal Gastrointestinal: Denies abdominal pain Physical Exam Vital Signs: Vital Signs: Last Vital Signs Temp 97.8 F 05/24/21 11:13 Pulse 91 05/24/21 11:13 Resp 18 05/24/21 11:13 BP 149/69 H 05/24/21 11:13 Pulse Ox 96 05/24/21 11:13 Body Mass Index 32.8 Const: General: comfortable, no acute distress, awake and Physically active Nutritional Appearance: overweight HENMT: Head: Yes normocephalic and Yes atraumatic Eyes: Sclerae: sclerae normal Pupils: Equal, round and reactive pupils present EOM: EOMs intact bilaterally Chest: Chest palpation & inspection: normal inspection of the chest Resp: Effort & Inspection: normal respiratory effort and no respiratory distress Cardio: Rate: regular rate Rhythm: regular rhythm Heart sounds: S1 normal heart sound present and S2 normal heart sound present GI: Palpation (GI): Soft to palpation and nontender Neuro: Cranial nerves: Yes CN's II-XII intact bilaterally, Yes Equal, round and reactive pupils present and Yes Bilaterally intact EOM present Extrem: Other: edema b/l legs, ulcer left heel with eschar, some erythema left leg; offloading boot in place Objective Data Current Medications Generic Name Dose Route Start Last Admin Trade Name Dianelys PRN Reason Stop Dose Admin Acetaminophen 650 mg 05/15/21 09:04 05/22/21 21:00 Acetaminophen 325 Mg Tablet PO 650 mg Q6H PRN Administration fever/pain Aripiprazole 15 mg 05/16/21 09:00 05/24/21 08:46 Aripiprazole 15 Mg Tablet PO 15 mg DAILY CARRIE Administration Aspirin 81 mg 05/16/21 09:00 05/24/21 08:46 Aspirin Enteric Coated 81 Mg Tablet. PO 81 mg DAILY CARRIE Administration Chlorhexidine Gluconate 15 ml 05/15/21 21:00 05/24/21 08:45 Chlorhexidine Gluc Oral Rinse 15 Ml Mouthwash BUCCAL 15 ml BID CARRIE Administration Docusate Sodium 100 mg 05/15/21 09:15 05/24/21 08:53 Docusate Sodium 100 Mg Capsule PO Not Given BID CARRIE Duloxetine HCl 20 mg 05/16/21 09:00 05/24/21 08:46 Duloxetine Hcl 20 Mg Capsule.Dr PO 20 mg DAILY CARRIE Administration Enoxaparin Sodium 40 mg 05/15/21 10:00 05/24/21 10:08 Enoxaparin Sodium 40 Mg/0.4 Ml Syringe SUBCUT 40 mg Q24H CARRIE Administration Clindamycin Phosphate 600 mg in 50 mls @ 100 mls/hr 05/21/21 14:00 05/24/21 05:56 Cleocin IV Infused Q8H CARRIE Infusion Insulin Human Lispro 0 unit 05/15/21 13:30 05/24/21 11:26 Insulin Lispro 100 Unit/Ml 3 Ml Vial SUBCUT Not Given QIDACHS [facility] Protocol Levothyroxine Sodium 100 mcg 05/16/21 06:30 05/24/21 05:13 Levothyroxine Sodium 100 Mcg Tablet PO 100 mcg DAILY@0630 CARRIE Administration Metoprolol Tartrate 12.5 mg 05/19/21 21:00 05/24/21 08:46 Metoprolol Tartrate 12.5 Mg Halftab PO 12.5 mg BID CARRIE Administration Protocol Ondansetron HCl 4 mg 05/15/21 09:01 Ondansetron Hcl 4 Mg/2 Ml Vial IVPUSH Q6H PRN nausea/vomitingadd Pharmacy Consult 1 each 05/15/21 07:16 Consult Rx Perform Med Rec MISCELLANE ONCE PRN Consult order Polyethylene Glycol 17 gm 05/15/21 09:01 Polyethylene Glycol 3350 17 Gm Powd.Pack PO DAILY PRN constipation Senna 17.2 mg 05/15/21 21:00 05/23/21 21:12 Sennosides 8.6 Mg Tablet PO 17.2 mg BEDTIME CARRIE Administration Sodium Chloride 3 ml 05/15/21 16:00 05/24/21 08:47 0.9 % Sodium Chloride Flush 3 Ml Syringe IVFLUSH 3 ml QSHIFT CARRIE Administration Trazodone HCl 25 mg 05/15/21 21:00 05/23/21 21:12 Trazodone Hcl 25 Mg Halftab PO 25 mg BEDTIME CARRIE Administration Valproic Acid 500 mg 05/16/21 09:00 05/24/21 08:45 Valproic Acid (As Sodium Salt) 250 Mg/5 Ml Solution PO 500 mg BID CARRIE Administration Labs CBC & Chem 7: 05/24/21 05:11 05/24/21 05:11 Labs: Laboratory Results - last 24 hr 05/23/21 05/23/21 05/24/21 16:13 20:46 05:11 MCV 101.0 H MCH 32.8 MCHC 32.4 RDW 15.1 Plt Count 264 D MPV 10.4 Absolute Nucleated RBC 0.000 Nucleated RBC % (auto) 0.0 Anion Gap Estim Creat Clear Calc Estimated GFR POC Glucose 156 H 160 H Random Glucose Calcium 05/24/21 05/24/21 05/24/21 05:11 07:15 11:15 MCV MCH MCHC RDW Plt Count MPV Absolute Nucleated RBC Nucleated RBC % (auto) Anion Gap 12 Estim Creat Clear Calc 77.2 Estimated GFR > 60 POC Glucose 145 H 128 H Random Glucose 167 H Calcium 7.9 L Microbiology Microbiology Results: Microbiology 05/18/21 22:12 Blood Culture - Final Blood - Venous No growth after 5 days. 05/18/21 22:16 Blood Culture - Final Blood - Venous No growth after 5 days. Assessment and Plan (1) Ulcer of left heel: Status: Acute Assessment and Plan: 75 year-old female long-term care resident of [facility] with a history of recurrent sepsis from lower extremity cellulitis with bacteremia, atrial fibrillation, vascular dementia, and schizoaffective disorder presenting with worsening lethargy with LLE cellulitis, failed outpatient doxycycline admitted with severe sepsis and SHREYAS severe sepsis secondary to LLE cellulitis/erysipelas sepsis resolved, pain improved,redness is slowly improving, s/p iv piperacillin/tazobactam? 7D,doxy 3D and s/p vanco x 5 days ? MRSA nares negative ? WBC normalized, no fever, continue oxycodone for pain control, recommend frequent position change.? ? Blood pressure low but stable, dose of metoprolol reduced to 12.5 b.i.d. initial and repeat blood cultures both are negative ? on iv clindamycin 600 mg Q 8 hour day 3 ,per ID recommendation ? Continue Pascal catheter due to significant groin rash for skin integrity left heel decubitus ulcer -seen by General surgery they recommend vascular surgery evaluation, patient seen by Dr. Meeks case discussed with him he feels patient does not have vascular disease, he recommend outpatient follow-up -seen by ID, recommend left heel CT scan to rule out osteo Leg edema: Patient with bilateral lower extremity edema, has normal renal function, normal liver function, echo showed no significant abnormality, patient has anemia and low albumin likely contributing to edema -protein supplements AF/RVR - rate-controlled on metoprolol, continue ASA; not on full AC due to fall risk, transthoracic echo 05/16 showed preserved EF 60-65%, no wall motion abnormalities, diastolic function is ?? indeterminate, no valvular disease noted septic encephalopathy Resolved seems to be at baseline mental status, has baseline dementia, answering questions appropriately SHREYAS Resolved - likely due to sepsis, creatinine normalized with IV fluid. hypokalemia Resolved. likely related to IV fluid, repleted and normalized chronic anemia with elevated MCV, B12 above normal range thrombocytopenia - likely due to sepsis; platelet count improved, continue to monitor CBC while on LMWH HTN - noted to have hypotension, improved with IV hydration, continue metoprolol dose lowered to 12.5, follow BP closely schizoaffective disorder - continue valproate, aripiprazole, duloxetine, lorazepam and trazodone, no behavioral issues noted dementia, vascular - continue psychiatric medications as above; frequent re-orientation hypothyroidism - continue synthroid DM2, A1c 7.1 - blood sugar stable,continue to follow POC + correction-dose lispro; hold MTF possible further workup by vascular surgery DVT ppx - LMWH Code status - full code Attending: Dr. cortez Quality Stroke Does the patient have a stroke diagnosis?: No VTE Prior VTE?: No VTE Risk Level:: Medical - moderate - high VTE Device Contraindication: N/A - Device Ordered VTE Drug Contraindication: N/A - Med Ordered
[2021-05-24 15:44] VITALS: BP 130/56; PULSE 86; RESP 15; TEMP 36.6; O2SAT 99
[2021-05-24 16:17] LABS: Glucose, Whole Blood 106 mg/dL (60-115)
[2021-05-24] MEDS: iohexoL 350 MG/ML 100 ML INFUS..BTL IV (17:53)
[2021-05-24 19:16] VITALS: BP 122/74; PULSE 98; RESP 15; TEMP 36.6; O2SAT 99
[2021-05-24 20:32] LABS: Glucose, Whole Blood 118 mg/dL (60-115)
[2021-05-24 23:31] VITALS: BP 154/69; PULSE 83
[2021-05-24] MEDS: traZODone HCL 25 MG HALFTAB PO (23:31)
[2021-05-24] MEDS: Sennosides 8.6 MG TABLET 17.2 MG PO (23:31)
[2021-05-25] VITALS: BP 154/69; PULSE 89; RESP 18; TEMP 36.1; O2SAT 94
[2021-05-25 03:58] VITALS: BP 139/65; PULSE 90; RESP 18; TEMP 36.4; O2SAT 99
[2021-05-25] MEDS: Clindamycin Phosphate/D5W 600 MG/50 ML PIGGYBACK 100 MG IV ×2 (05:34→13:41)
[2021-05-25] MEDS: Levothyroxine Sodium 100 MCG TABLET PO (05:34)
[2021-05-25 07:03] LABS: Hematocrit 28.9 % (37-47); Hemoglobin 9.2 g/dl (12.0-16.0); Mean Corpuscular HGB Conc 31.8 g/dl (31.0-35.0); Mean Corpuscular Hemoglobin 32.3 pg (27.0-33.0); Mean Corpuscular Volume 101.4 fL (80-98); Mean Platelet Volume 9.8 fL (9.4-12.3); Platelet Count 253 X10*3/uL (160-400); Red Blood Count 2.85 X10*6/uL (4.20-5.50); Red Cell Distribution Width 15.2 % (11.0-16.0); White Blood Count 8.9 X10*3/uL (4.8-10.8)
[2021-05-25 07:12] VITALS: BP 124/77; PULSE 80; RESP 18; TEMP 36.8; O2SAT 100
[2021-05-25 07:17] LABS: Glucose, Whole Blood 114 mg/dL (60-115)
[2021-05-25 07:41] LABS: Anion Gap 14 (12-20); Blood Urea Nitrogen 9 mg/dL (9-16); Calcium 8.4 mg/dL (8.4-10.2); Carbon Dioxide 28 mmol/L (22-29); Chloride 102 mmol/L (96-108); Creatinine Clr Calc Pharmacy 80.6; Estimated Glomerular Filt Rate > 60; Glucose Random 115 mg/dL (60-115); Potassium 3.7 mmol/L (3.3-5.1); Sodium 140 mmol/L (135-145)
--- NOTE | 2021-05-25 10:12 | MHC.SL.SWA ---
Speech Pathologist Impression: Risk of Aspiration Oral Phase Dysphagia Risk of Aspiration Due to: Poor PO Intake Reduced Cognition Dysphasia Diet Status: Upgrade Liquid Consistency and Strategies for Safe Swallow: Liquid Intake Recommendation: Thin Liquid Intake Strategies: Small Sips No Straws Solid Food Consistency: Dietary Recommendations: Grnd/Mech Altered (NDD2) Additional Modifications to Solid Foods: moisten food with sauce/gravy Oral Medication Intake: Crushed with Puree Compensatory Strategies and Precautions to be Taken for Safe Swallow: Sitting Upright (90 deg) No Straw Liquids from Cup Small Bites and Sips Alternate Liquids/Solids Rate of Ingestion Change Oral Check Supervision While Eating and Drinking for Safe Swallow: Total Assistance Foods to Avoid: NO STRAWS!!! Swallowing Recommended Treatments: Compens. Strategy Educat. Recommendation for Speech: Inpatient Speech Therapy Comment: INTERIOR DECORATOR PAPERHANGING will continue to follow during hospitalization, as appropriate. [employer] D[employer] Clinican/Clinical Fellow: No Supervisory Statement: I have reviewed and agree with the student/clinical fellow's documentation: N/A Speech Language Pathologist: Jelly Mena M.A., CCC-INTERIOR DECORATOR [employer]
[2021-05-25] MEDS: 0.9 % Sodium Chloride Flush 3 ML SYRINGE IVFLUSH (10:58)
[2021-05-25] MEDS: Enoxaparin Sodium 40 MG/0.4 ML SYRINGE SUBCUT (11:04)
[2021-05-25 11:05] VITALS: BP 135/64; PULSE 91
[2021-05-25] MEDS: Chlorhexidine Gluc Oral Rinse 15 ML MOUTHWASH BUCCAL (11:05)
[2021-05-25] MEDS: Docusate Sodium 100 MG CAPSULE PO (11:05)
[2021-05-25] MEDS: Metoprolol Tartrate 12.5 MG HALFTAB PO (11:05)
[2021-05-25] MEDS: Aspirin Enteric Coated 81 MG TABLET.DR PO (11:06)
[2021-05-25] MEDS: DULoxetine HCl 20 MG CAPSULE.DR PO (11:06)
[2021-05-25] MEDS: ARIPiprazole 15 MG TABLET PO (11:06)
[2021-05-25 11:44] LABS: Glucose, Whole Blood 144 mg/dL (60-115)
--- NOTE | 2021-05-25 13:49 | MHC.CLN ---
F/U PO INTAKE REMAINS THE SAME 25-50% DIET RX: 2000DM GRD M/S-APPROPRIATE DISTILLERY SUPERVISOR REC UPGRADE GRD M/S WITH THIN LIQUIDS 8/6 PT RECEIVING GLUCERNA AND JAYDEN TO PROMOTE WOUND HEALING SUPPLEMENTS PROVIDE 634KCALS, 25G PROTEIN CONTINUE TO MONITOR PO INTAKE CLOSELY
--- NOTE | 2021-05-25 14:07 | PM.IDPN ---
Subjective Subjective Date of Service: 05/25/21 Critical Care Time (minutes): 15 Comment: no complaints Objective Data Labs CBC & Chem 7: 05/25/21 06:33 05/25/21 06:33 Labs: Laboratory Results - last 24 hr 05/24/21 05/24/21 05/25/21 16:13 20:28 06:33 WBC 8.9 RBC 2.85 L Hgb 9.2 L Hct 28.9 L MCV 101.4 H MCH 32.3 MCHC 31.8 RDW 15.2 Plt Count 253 MPV 9.8 Absolute Nucleated RBC 0.000 Nucleated RBC % (auto) 0.0 Sodium Potassium Chloride Carbon Dioxide Anion Gap BUN Creatinine Estim Creat Clear Calc Estimated GFR POC Glucose 106 118 H Random Glucose Calcium 05/25/21 05/25/21 05/25/21 06:33 07:13 11:10 WBC RBC Hgb Hct MCV MCH MCHC RDW Plt Count MPV Absolute Nucleated RBC Nucleated RBC % (auto) Sodium 140 Potassium 3.7 Chloride 102 Carbon Dioxide 28 Anion Gap 14 BUN 9 Creatinine 0.69 Estim Creat Clear Calc 80.6 Estimated GFR > 60 POC Glucose 114 144 H Random Glucose 115 Calcium 8.4 D Microbiology Microbiology Results: Microbiology 05/18/21 22:12 Blood - Venous Blood Culture - Final No growth after 5 days. 05/18/21 22:16 Blood - Venous Blood Culture - Final No growth after 5 days. 05/17/21 05:28 Blood - Venous Blood Culture - Final No growth after 5 days. 05/17/21 05:28 Blood - Venous Blood Culture - Final No growth after 5 days. 05/15/21 04:59 Blood - Venous Blood Culture - Final No growth after 5 days. 05/15/21 04:59 Blood - Venous Blood Culture - Final No growth after 5 days. Physical Exam Vital Signs: Vital Signs: Last Vital Signs Temp 98.2 F 05/25/21 07:12 Pulse 91 05/25/21 11:05 Resp 18 05/25/21 07:12 BP 135/64 05/25/21 11:05 Pulse Ox 100 05/25/21 07:12 Body Mass Index 32.8 Const: General: cooperative Resp: Effort & Inspection: normal respiratory effort Cardio: Rate: regular rate Rhythm: regular rhythm GI: Palpation (GI): Soft to palpation and nontender Extrem: Other: less redness Assessment and Plan Assessment and plan (1) Hypotension: Status: Resolved Assessment and Plan: Cellulitis resolving Has pressure ulcers and been on Clindamycin Seen by surgery and CT no osteomyelitis Can stop antibiotics Time Spent With Patient Time: Total time spent is greater than 50% in coordination of care (as documented) at patient's floor/unit and/or counseling patient: Time with patient: 25 - 35 minutes
--- NOTE | 2021-05-25 14:42 | PM.DS ---
DS: Providers Provider Date of Service: 05/25/21 Date of admission: 05/15/21 09:05 Primary care physician: Dimple Mcintosh MD Consults: 05/15/21 08:58 Consult to Infectious Diseases Routine Consulting Provider: Emma Shelton Reason for consultation: cellulitis, recurrent, likely bacteremia 05/20/21 10:19 Consult to General Surgery Routine Consulting Provider: Rubina Lawson Reason for consultation: left heel ulcer Has provider been notified: No 05/21/21 08:21 Consult to Vascular Surgery Routine Consulting Provider: Erwin Jordan Reason for consultation: left leg ulcer Has provider been notified: No DS: Diagnosis Discharge Diagnosis (1) Hypotension: Status: Resolved DS: Medications Discharge Medications Home Medications: Home Medications Medication Instructions Recorded Confirmed Lactobacillus rhamnosus GG 10 1 cap PO BID 05/15/21 05/15/21 billion cell capsule (Culturelle) aripiprazole 15 mg tablet 15 mg PO DAILY 05/15/21 05/15/21 aspirin 81 mg tablet,delayed 81 mg PO DAILY 05/15/21 05/15/21 release chlorhexidine gluconate 0.12 % 15 ml BUCCAL BID 05/15/21 05/15/21 mouthwash (Peridex) divalproex 500 mg tablet,delayed 500 mg PO BID 05/15/21 05/15/21 release doxycycline hyclate 100 mg capsule 100 mg PO BID 05/15/21 05/15/21 duloxetine 20 mg capsule,delayed 20 mg PO DAILY 05/15/21 05/15/21 release levothyroxine 100 mcg tablet 100 mcg PO DAILY 05/15/21 05/15/21 lorazepam 0.5 mg tablet 0.5 mg PO DAILY@1800 05/15/21 05/15/21 metformin 500 mg tablet 500 mg PO BID 05/15/21 05/15/21 metoprolol tartrate 25 mg tablet 25 mg PO BID 05/15/21 05/15/21 polyethylene glycol 3350 17 gram 17 g PO DAILY 05/15/21 05/15/21 oral powder packet trazodone 50 mg tablet 25 mg PO BEDTIME 05/15/21 05/15/21 DS: Summary Hospital Course Hospital Course: d/c diagnosis: Severe sepsis secondary to left lower extremity cellulitis Left heel pressure ulcer Encephalopathy SHREYAS Hypokalemia Thrombocytopenia Secondary diagnosis Atrial fibrillation Hypertension Vascular dementia Diabetes From H&P on day of admission Chief Complaint: altered mental status, fever, leg infection This history is obtained from review of the ED and SNF records, due to the patient's altered mental status. Ms Cook is a 75 year-old female long-term resident of [facility] with a history of recurrent sepsis from lower extremity cellulitis with bacteremia, atrial fibrillation, vascular dementia, and schizoaffective disorder who was sent in with worsening lethargy over the last 2 days in the context of cellulitis of the left leg and thigh.? She was started on oral doxycycline 2 days ago, but the redness has progressed and she has basically stopped eating.? She has been admitted to [facility] 3 times since March 2020 for sepsis from cellulitis with beta-hemolytic streptococcal bacteremia.? Most recently, in November, she had cellulitis of the left thigh associated with group G streptococcal bacteremia and was treated with IV/IM ceftriaxone for 2 weeks.? An echocardiogram during that admission showed normal EF and no vegetations.? She was fully vaccinated against COVID-19 with mRNA vaccines in October 2020. In the ED, she was found to be severely septic with T 104.7, lactate of 3.1, and WBC 13.? BP was 100/59. ? She was in AF/RVR with ventricular rate in the 140s. ? Platelets were decreased to 88 and serum cratinine was 1.53, compared to 0.896 on 05/13/21.? She was hyperglycemic with glucose of 340. She was given APAP, IV metoprolol, 30 cc/kg of NS, and piperacillin/tazobactam.? Currently, she is afebrile and ventricular rate is in the 90s and BP is 114/58. Hospital course by problem: severe sepsis secondary to LLE cellulitis/erysipelas. sepsis resolved, pain improved,redness is slowly improving,initially treated with iv piperacillin/tazobactam?and vanco, then transitioned to doxy and finally clindamycin. she was seen by ID. she had CT of left heel which showed no evidence of osteomyelitis.she completed course of antibiotics while in the hosptial. MRSA nares negative. WBC normalized, has remained afebrile. For left heel pressure ulcer she was seen by General surgery who did not feel that any surgical intervention was required. they recommend vascular surgery evaluation, patient seen by vascular who did not feel that the patient had any vascular disease, he recommend outpatient follow-up. Due to significant skin maceration from urinary incontinance, a gonzalez catheter was placed. Gonzalez can be removed when skin integrity has improved. Leg edema: Patient with bilateral lower extremity edema, has normal renal function, normal liver function, echo showed no significant abnormality, patient has anemia and low albumin likely contributing to edema. protein supplements were added. Vascular surgery recommended outpatient workup for venous insufficiency. ?? AF/RVR - rate-controlled on metoprolol, continue ASA; not on full AC due to fall risk, transthoracic echo 05/16 showed preserved EF 60-65%, no wall motion abnormalities, diastolic function is indeterminate, no valvular disease noted septic encephalopathy Resolved. seems to be at baseline mental status, has baseline dementia, answering questions appropriately SHREYAS Resolved. likely due to sepsis, creatinine normalized with IV fluid. hypokalemia. Resolved. likely related to IV fluid, repleted and normalized Time Spent with Patient Time attestation: Total time spent providing and/or coordinating discharge services: Discharge coordination time: Greater than 30 minutes Quality: Stroke Does the patient have a stroke diagnosis?: No Physical Exam Vital Signs: Vital Signs: Last Vital Signs Temp 98.2 F 05/25/21 07:12 Pulse 91 05/25/21 11:05 Resp 18 05/25/21 07:12 BP 135/64 05/25/21 11:05 Pulse Ox 100 05/25/21 07:12 Body Mass Index 32.8 Const: General: comfortable, no acute distress, alert and awake Nutritional Appearance: overweight Eyes: Pupils: Equal, round and reactive pupils present EOM: EOMs intact bilaterally Resp: Effort & Inspection: normal respiratory effort Cardio: Jugular venous distension: no JVD Heart sounds: S1 normal heart sound present and S2 normal heart sound present GI: Palpation (GI): Soft to palpation and nontender Neuro: Cranial nerves: Yes Equal, round and reactive pupils present Extrem: Other: leg edema; left heel ulcer with bandage; heel protectors DS: Data Data Completed and Pending Labs on day of discharge: Laboratory Results - last 24 hr 05/24/21 05/24/21 05/25/21 16:13 20:28 06:33 WBC 8.9 RBC 2.85 L Hgb 9.2 L Hct 28.9 L MCV 101.4 H MCH 32.3 MCHC 31.8 RDW 15.2 Plt Count 253 MPV 9.8 Absolute Nucleated RBC 0.000 Nucleated RBC % (auto) 0.0 Sodium Potassium Chloride Carbon Dioxide Anion Gap BUN Creatinine Estim Creat Clear Calc Estimated GFR POC Glucose 106 118 H Random Glucose Calcium 05/25/21 05/25/21 05/25/21 06:33 07:13 11:10 WBC RBC Hgb Hct MCV MCH MCHC RDW Plt Count MPV Absolute Nucleated RBC Nucleated RBC % (auto) Sodium 140 Potassium 3.7 Chloride 102 Carbon Dioxide 28 Anion Gap 14 BUN 9 Creatinine 0.69 Estim Creat Clear Calc 80.6 Estimated GFR > 60 POC Glucose 114 144 H Random Glucose 115 Calcium 8.4 D Discharge Plan Discharge Patient Disposition: [facility] Discharge Diagnosis: severe sepsis secondary to lower extremity cellulitis Left heel decubitus ulcer Encephalopathy shreyas hypokalemia [place] [facility] [place] [facility] [place]Provider Group] - 1 Week Erwin Jordan MD [Physician] - 1 Week Dimple Mcintosh MD [Primary Care Provider] - 1 Week Discharge Medications: Continued metformin 500 mg Tablet 500 mg PO BID RF: 0 trazodone 50 mg Tablet 25 mg PO BEDTIME RF: 0 polyethylene glycol 3350 17 gram Powder In Packet 17 g PO DAILY RF: 0 divalproex 500 mg Tablet,Delayed Release (Dr/Ec) 500 mg PO BID RF: 0 aspirin 81 mg Tablet,Delayed Release (Dr/Ec) 81 mg PO DAILY RF: 0 levothyroxine 100 mcg Tablet 100 mcg PO DAILY RF: 0 lorazepam 0.5 mg Tablet 0.5 mg PO DAILY@1800 RF: 0 Culturelle 10 billion cell Capsule 1 cap PO BID RF: 0 aripiprazole 15 mg Tablet 15 mg PO DAILY RF: 0 metoprolol tartrate 25 mg Tablet 25 mg PO BID RF: 0 duloxetine 20 mg Capsule,Delayed Release(Dr/Ec) 20 mg PO DAILY RF: 0 chlorhexidine gluconate [Peridex] 0.12 % Mouthwash 15 ml BUCCAL BID RF: 0 Discontinued doxycycline hyclate 100 mg Capsule 100 mg PO BID RF: 0 Discharge Orders: Discharge Order (Routine); Ordered 05/25/21 Ordered By: Trinity Campo Activity on Discharge: As tolerated Stand Alone Forms: Patient Portal Discharge page Care Plan Goals: see below Health Concerns: Pressure ulcer left heel Plan of Treatment: has completed course of antibiotics for cellulitis while in hospital gonzalez placed due to incontinence and skin integrity. may remove when skin has improved. recommend appropriate measures to maintain skin integrity pressure ulcer - left heel. continue local wound care, heel protectors, frequent position changes, protein supplements should follow up in wound care center call to schedule follow up appointment with Dr. jordan of vascular surgery for outpatient workup for venous insufficiency Assessment: see discharge summary Discharge Date/Time: 05/25/21 17:08
[2021-05-25 15:25] VITALS: BP 136/64; PULSE 96; RESP 15; TEMP 36.1; O2SAT 99
[2021-05-25 15:48] LABS: Influenza A PCR NEGATIVE (Negative); Influenza B PCR NEGATIVE (Negative); Resp Syncy Virus RNA Qual PCR NEGATIVE (Negative); SARS COV2 PCR INHOUSE NEGATIVE (Negative)
[2021-05-25 16:13] LABS: Glucose, Whole Blood 120 mg/dL (60-115)
== END 2021-05-25 17:08 | disposition skilled nursing facility (03) | DRG 871 ==
LOC: HO.ED 08:20 → HO.EDOVER 09:16 → HO.IMC 16:16
PROVIDERS: Hospitalist; Internal Medicine; Physician Assistant Medical; Admitting Provider Family Medicine; Emergency Provider Student in an Organized Health Care Education/Training Program; PCP Internal Medicine; Visit Provider Family Medicine
DX: A41.9 Sepsis, unspecified organism (principal); G93.41 Metabolic encephalopathy; N17.0 Acute kidney failure with tubular necrosis; L03.116 Cellulitis of left lower limb; E03.9 Hypothyroidism, unspecified; A46 Erysipelas; I48.91 Unspecified atrial fibrillation; I95.9 Hypotension, unspecified; F01.50 Vascular dementia, unspecified severity, without behavioral disturbance, psychotic disturbance, mood disturbance, and anxiety; L89.629 Pressure ulcer of left heel, unspecified stage; E11.628 Type 2 diabetes mellitus with other skin complications; R65.20 Severe sepsis without septic shock; E87.6 Hypokalemia; F25.9 Schizoaffective disorder, unspecified; D64.9 Anemia, unspecified; L89.619 Pressure ulcer of right heel, unspecified stage; D69.6 Thrombocytopenia, unspecified; Z20.822 Contact with and (suspected) exposure to COVID-19; Z79.84 Long term (current) use of oral hypoglycemic drugs; Z79.890 Hormone replacement therapy; Z79.899 Other long term (current) drug therapy
CPT/HCPCS: 0241U; 36415; 71045; 73701; 80048; 80053; 80202; 81001; 82009; 82565; 82607; 82947; 83036; 83605; 83690; 83735; 83880; 85007; 85025; 85027; 85610; 86140; 87040; 87635; 87640; 87641; 92610; 93005; 93306; 96361; 96365; 96375; 99285; C1758; J1650; J1885; J1940; J2543; J3370; J3475; Q9967

== ENCOUNTER 2021-06-05 09:04 | Outpatient (RCR) | payer OTHER, MEDICARE, MEDICAID, SELFPAY | END 2021-07-24 14:40 | disposition home or self-care (01) | LOC: HO.WCC 09:04 | PROVIDERS: Visit Provider Physician Assistant | DX: E11.621 Type 2 diabetes mellitus with foot ulcer (principal); E11.622 Type 2 diabetes mellitus with other skin ulcer; L89.620 Pressure ulcer of left heel, unstageable; L89.153 Pressure ulcer of sacral region, stage 3; L89.319 Pressure ulcer of right buttock, unspecified stage; S31.829D Unspecified open wound of left buttock, subsequent encounter; F25.9 Schizoaffective disorder, unspecified; L08.9 Local infection of the skin and subcutaneous tissue, unspecified; Z79.899 Other long term (current) drug therapy; Z79.84 Long term (current) use of oral hypoglycemic drugs | CPT/HCPCS: 11042; 11045; 87071; 87077; 87186; 87205; 97597; 99213; 99214 ==

== ENCOUNTER → 2021-06-21 14:55 | Outpatient (BNVA) | payer MEDICAID, SELFPAY | PROVIDERS: PCP Internal Medicine; Visit Provider Surgery Vascular Surgery | DX: I73.9 Peripheral vascular disease, unspecified (principal) | CPT/HCPCS: 99212 ==

== ENCOUNTER 2021-07-11 14:00 | Inpatient (IN) | payer MEDICARE, MEDICAID, SELFPAY ==
[2021-07-11] VITALS (9 sets, daily range): BP systolic 121–155; BP diastolic 61–77; PULSE 121–132; RESP 18–24; TEMP 36.5–37; O2SAT 97–99; BMI 29.1
--- NOTE | ~2021-07-11 | CT_ITS ---
EXAMINATION: CT HEAD WITHOUT CONTRAST CLINICAL INFORMATION: Altered mental status COMPARISON: None. TECHNIQUE: Contiguous axial imaging was performed from the skull base to vertex without intravenous contrast. This CT examination was performed using dose optimization techniques as appropriate, variously including the following: * Automated exposure control * Adjustment of mA and/or kV according to patient size (this includes techniques or standardized protocols for targeted exams where dose is matched to indication/reason for exam; i.e. extremities or head) Use of iterative reconstruction technique DLP: 717 mGy-cm. FINDINGS: There is no evidence of acute intracranial hemorrhage or territorial infarction. No abnormal mass effect or midline shift is seen. Fabian to white matter differentiation is well preserved. No extra-axial fluid collections are identified. No hydrocephalus. Proportional prominence of the ventricles and sulcal spaces is consistent with mild volume loss. Patchy periventricular and deep white matter hypoattenuation is consistent with mild small vessel ischemic changes. The osseous structures and soft tissues are normal. The mastoid air cells and visualized portions of the paranasal sinuses are well aerated. CT/CT head/brain wo con IMPRESSION: No acute intracranial pathology. Mild volume loss with small vessel ischemic change.
--- NOTE | ~2021-07-11 | XR_ITS ---
EXAMINATION: XR ABDOMEN KUB CLINICAL INDICATION: MRI clearance. COMPARISON: None TECHNIQUE: AP view of the abdomen. FINDINGS: The bowel gas pattern is normal with no evidence of ileus or obstruction. Evidence of enthesopathy is noted. No evidence of any radiopaque foreign body. XR/XR KUB IMPRESSION: No evidence of radiopaque metallic foreign bodies identified within the visualized part of the abdomen and pelvis.
--- NOTE | ~2021-07-11 | US_ITS ---
EXAMINATION: NONINVASIVE ASSESSMENT OF THE ARTERIES OF BOTH LOWER EXTREMITIES INCLUDING PVR EXAM AND BILATERAL LOWER EXTREMITY DUPLEX. CLINICAL INFORMATION: Right lower extremity ulcer COMPARISON: None TECHNIQUE: Ankle pulse volume recordings, ankle pressure measurements and ankle brachial indices were obtained of the right lower extremity arterial system bilaterally in addition to duplex Doppler techniques of the right lower extremity with wave form analysis and measurement of velocities in the common femoral, profunda femoral, superficial femoral, popliteal, tibial and peroneal arteries. The study was performed only at rest. FINDINGS: RIGHT LEG 1. THE RIGHT ANKLE-BRACHIAL INDEX IS: Unable to calculate due to vessel noncompressibility/calcification. >0.97-1.25 = normal - no significant arterial disease 0.75-0.96 = mild peripheral arterial disease 0.5-0.74 = moderate peripheral arterial disease <0.50 = severe peripheral arterial disease <0.30 = critical arterial disease 2. SEGMENTAL PRESSURES (mmHg): Ankle: PT 200, DP 132 3. PVR WAVEFORMS: Ankle: Multiphasic 4. DIRECT DUPLEX: Common femoral artery: 152 cm/s, monophasic Profunda femoris artery: 251 cm/s, Multiphasic Superficial femoral artery (proximal): 188 cm/s, Multiphasic Superficial femoral artery (mid): 99 cm/s, Multiphasic Superficial femoral artery (distal): 178 cm/s, Multiphasic Popliteal artery: 266 cm/s, Multiphasic Mid posterior tibial artery: 107 cm/s, Multiphasic US/US arterial duplex LE BI IMPRESSION: 1. Significantly elevated ankle-brachial index secondary to atherosclerotic calcification and noncompressibility. 2. Severe stenosis at the right popliteal artery. 3. Additional scattered areas of moderate and mild stenoses throughout the right lower extremity. Consider CTA or MRA for further evaluation.
--- NOTE | ~2021-07-11 | US_ITS ---
EXAMINATION: NONINVASIVE ASSESSMENT OF THE ARTERIES OF BOTH LOWER EXTREMITIES INCLUDING PVR EXAM AND BILATERAL LOWER EXTREMITY DUPLEX. CLINICAL INFORMATION: Right lower extremity ulcer COMPARISON: None TECHNIQUE: Ankle pulse volume recordings, ankle pressure measurements and ankle brachial indices were obtained of the right lower extremity arterial system bilaterally in addition to duplex Doppler techniques of the right lower extremity with wave form analysis and measurement of velocities in the common femoral, profunda femoral, superficial femoral, popliteal, tibial and peroneal arteries. The study was performed only at rest. FINDINGS: RIGHT LEG 1. THE RIGHT ANKLE-BRACHIAL INDEX IS: Unable to calculate due to vessel noncompressibility/calcification. >0.97-1.25 = normal - no significant arterial disease 0.75-0.96 = mild peripheral arterial disease 0.5-0.74 = moderate peripheral arterial disease <0.50 = severe peripheral arterial disease <0.30 = critical arterial disease 2. SEGMENTAL PRESSURES (mmHg): Ankle: PT 200, DP 132 3. PVR WAVEFORMS: Ankle: Multiphasic 4. DIRECT DUPLEX: Common femoral artery: 152 cm/s, monophasic Profunda femoris artery: 251 cm/s, Multiphasic Superficial femoral artery (proximal): 188 cm/s, Multiphasic Superficial femoral artery (mid): 99 cm/s, Multiphasic Superficial femoral artery (distal): 178 cm/s, Multiphasic Popliteal artery: 266 cm/s, Multiphasic Mid posterior tibial artery: 107 cm/s, Multiphasic US/US EDGAR complete IMPRESSION: 1. Significantly elevated ankle-brachial index secondary to atherosclerotic calcification and noncompressibility. 2. Severe stenosis at the right popliteal artery. 3. Additional scattered areas of moderate and mild stenoses throughout the right lower extremity. Consider CTA or MRA for further evaluation.
--- NOTE | ~2021-07-11 | XR_ITS ---
EXAMINATION: CHEST. LEFT FOOT CLINICAL INFORMATION: Sepsis. COMPARISON: None TECHNIQUE: Chest 2 views. Left foot 3 views. FINDINGS: Chest: Both lungs are fairly well-expanded and clear of acute process. The heart size and pulmonary vascularity is normal. There is moderate spondylosis dorsal spine. No lytic process. Left foot: There is diffuse osteopenia. No visible acute fracture, dislocation or lytic process. The ankle mortise and subtalar joints are normal. There is a moderate dorsal distal foot soft tissue swelling. XR/XR chest 2V IMPRESSION: Diffuse osteopenia with moderate distal dorsal foot soft tissue swelling. Question reflects sympathetic dystrophy. Unremarkable chest exam.
--- NOTE | ~2021-07-11 | US_ITS ---
EXAMINATION: LEFT LOWER EXTREMITY DUPLEX ARTERIAL EXAMINATION CLINICAL INFORMATION: Left leg pain with ulcer COMPARISON: None TECHNIQUE: Real-time ultrasound and Doppler techniques (integrating B-mode 2D vascular images, Doppler spectral analysis and color flow Doppler imaging) were utilized to interrogate the left lower extremity arterial system. FINDINGS: Exam is somewhat limited due to patient cooperation/dementia Common femoral artery: Triphasic waveform with peak systolic velocity of 100 cm/s. Profunda femoral artery: Triphasic waveform with peak systolic velocity of 115 cm/s. Proximal superficial femoral artery: Monophasic waveform with peak systolic velocity of 80 cm/s. Mid superficial femoral artery: Monophasic waveform with peak systolic velocity of 48 cm/s with spectral broadening. There is greater than 50% stenosis present within the mid superficial femoral artery with peak systolic velocity distal to the stenosis of 25 cm/s. Distal superficial femoral artery: There is a severely abnormal monophasic waveform with large amount of spectral broadening. There is a peak systolic velocity of 145 cm/s distal to the stenosis. Popliteal artery: There is a monophasic waveform present with peak systolic velocity of 43 cm/s. Posterior tibial artery: Monophasic waveform with peak systolic velocity of 40 cm/s. Peroneal artery not identified. US/US arterial duplex LE LT IMPRESSION: Severe peripheral arterial disease distal to the common femoral artery.
--- NOTE | ~2021-07-11 | MR_ITS ---
EXAMINATION: MRI FOOT LEFT WITHOUT/WITH CONTRAST CLINICAL INFORMATION: Nonhealing ulcer. Evaluate for osteomyelitis. COMPARISON: Radiographs of the foot from 07/11/[address] exam from 05/24/2021. TECHNIQUE: MR imaging of the left foot was performed using standard sequences on a high-field 1.5 Sarah magnet without and with intravenous administration of 8.5 mL Gadavist. FINDINGS: There is a soft tissue wound of the heel. There is lack of skin tissue and deficiency of subcutaneous tissue in the area of the wound. The T1-weighted images show loss of fatty marrow signal intensity in the posteroinferior aspect of the calcaneal tuberosity at and distal to the region of the Achilles insertion. There is associated bone marrow edema and bone marrow enhancement. No bone or soft tissue abscess. The findings are consistent with osteomyelitis involving the calcaneal tuberosity. No calcaneal fracture. There is a small plantar calcaneal enthesophyte. The central cord of plantar aponeurosis is thickened, consistent with chronic fasciopathy. Bones have normal alignment at the ankle and proximal foot. The talar dome is well-positioned within the intact ankle mortise. A normal amount of fluid is present within the ankle and subtalar joints. No evidence of synovitis. Alignment is maintained at the Chopart and Lisfranc joints. The lateral ankle ligaments and deltoid ligament complex are intact. The spring ligament complex is unremarkable. The fat planes are maintained within the sinus tarsi and tarsal tunnel. No soft tissue mass. There is There is diffuse edema and fatty replacement of muscles in the visualized foot. The muscles have an edematous, T2 hyperintense appearance on fat-suppressed fluid sensitive sequences and this could be a manifestation of chronic myopathy/neuropathy. No evidence of tendon tear. The visualized distal Achilles tendon is intact. The peroneal, flexor, extensor and tibialis tendons have normal caliber and signal. MR/MR foot LT wo/w con IMPRESSION: MR imaging findings are consistent with osteomyelitis involving the posteroinferior aspect of the calcaneal tuberosity. No soft tissue abscess. Other findings, as noted above.
--- NOTE | ~2021-07-11 | XR_ITS ---
EXAMINATION: CHEST. LEFT FOOT CLINICAL INFORMATION: Sepsis. COMPARISON: None TECHNIQUE: Chest 2 views. Left foot 3 views. FINDINGS: Chest: Both lungs are fairly well-expanded and clear of acute process. The heart size and pulmonary vascularity is normal. There is moderate spondylosis dorsal spine. No lytic process. Left foot: There is diffuse osteopenia. No visible acute fracture, dislocation or lytic process. The ankle mortise and subtalar joints are normal. There is a moderate dorsal distal foot soft tissue swelling. XR/XR foot LT min 3V IMPRESSION: Diffuse osteopenia with moderate distal dorsal foot soft tissue swelling. Question reflects sympathetic dystrophy. Unremarkable chest exam.
--- NOTE | 2021-07-11 14:18 | ECG_ITS ---
Test Reason : SEPSIS Blood Pressure : / mmHG Vent. Rate : 129 BPM Atrial Rate : 119 BPM P-R Int : 000 ms QRS Dur : 078 ms QT Int : 398 ms P-R-T Axes : 000 008 -68 degrees QTc Int : 583 ms Atrial fibrillation with rapid ventricular response Nonspecific T wave abnormality Abnormal ECG When compared with ECG of 15-MAY-2021 05:09, ST no longer depressed in Lateral leads Nonspecific T wave abnormality now evident in Anterior leads Nonspecific T wave abnormality has replaced inverted T waves in Lateral leads Referred By: Stuart Land Electronically Signed By:MARITO SEGURA
--- NOTE | 2021-07-11 14:19 | ED_ITS ---
HPI - General Adult General Chief complaint: Arrhythmia/Palpitations Time Seen by Provider: 07/11/21 14:04 Source: patient Mode of arrival: ambulatory Limitations: no limitations History of Present Illness HPI narrative: 75-year-old female with baseline advanced dementia presents emergency department with a left foot ulcer being treated on Levaquin and cefdinir. She is coming from a half-way. Patient was sent in for an ultrasound today to rule out DVT patient was found to be in AFib with RVR. Patient baseline has poor appearance poor skin turgor but left foot has been a new finding being treated patient has no complaints he is nonverbal Related Data Home Medications Medication Instructions Recorded Confirmed Lactobacillus rhamnosus GG 10 1 cap PO BID 05/15/21 05/15/21 billion cell capsule (Culturelle) aripiprazole 15 mg tablet 15 mg PO DAILY 05/15/21 05/15/21 aspirin 81 mg tablet,delayed 81 mg PO DAILY 05/15/21 05/15/21 release chlorhexidine gluconate 0.12 % 15 ml BUCCAL BID 05/15/21 05/15/21 mouthwash (Peridex) divalproex 500 mg tablet,delayed 500 mg PO BID 05/15/21 05/15/21 release duloxetine 20 mg capsule,delayed 20 mg PO DAILY 05/15/21 05/15/21 release levothyroxine 100 mcg tablet 100 mcg PO DAILY 05/15/21 05/15/21 lorazepam 0.5 mg tablet 0.5 mg PO DAILY@1800 05/15/21 05/15/21 metformin 500 mg tablet 500 mg PO BID 05/15/21 05/15/21 metoprolol tartrate 25 mg tablet 25 mg PO BID 05/15/21 05/15/21 polyethylene glycol 3350 17 gram 17 g PO DAILY 05/15/21 05/15/21 oral powder packet trazodone 50 mg tablet 25 mg PO BEDTIME 05/15/21 05/15/21 Allergies Allergy/AdvReac Type Severity Reaction Status Date / Time No Known Allergies Allergy Verified 06/21/21 14:52 Review of Systems Review of Systems: Review of systems: Unable to obtain Yes Unobtainable due to mental status PMFSH Past Medical History Medical History Atrial fibrillation Chronic constipation Hypertension Hypothyroidism Recurrent bacteremia Recurrent cellulitis Schizoaffective disorder Trimalleolar fracture of ankle, closed Type 2 diabetes mellitus Vascular dementia Vitamin B12 deficiency Vitamin D deficiency Surgical History Status post ORIF of fracture of ankle Social History Social History Household Members: None Housing: Prison Do you presently have visiting nurse or other home services: No Patient Tobacco Use Status: Never used Tobacco Advance Directives Date on File: 05/15/21 service: No Current occupational status: disabled Physical Exam Vital Signs: Vital Signs: Last Vital Signs Temp 98.6 F 07/11/21 14:41 Pulse 127 H 07/11/21 14:41 Resp 20 07/11/21 14:41 BP 123/71 07/11/21 14:41 Pulse Ox 98 07/11/21 14:41 Body Mass Index 29.1 Tachycardic and nonfebrile General: Well-appearing well-nourished in no signs of distress HEENT: Normocephalic atraumatic Neck: No signs of JVD, no masses no tenderness or lymphadenopathy Cardiovascular: Regular rate and rhythm Respiratory: Clear to auscultation bilaterally Abdomen: Soft nontender no masses Extremities: Normal pedal pulses no signs of edema left heel necrotic appearing wound with opening redness going towards the anterior foot and spreading up the leg Skin: Silicon parents scan of the foot with necrotic wound to heal Dry warm no rashes Back: No tenderness full ROM Medical Decision Making MDM Narrative Medical decision making narrative: Concern for necrotic wound to left heel ulcer the patient antibiotics with patient for x-ray labs including lactic blood cultures. 1507 Lactic is 6.7 I will admit. I started the patient on vancomycin and ancef. Patient appears to have failed outpatient antibiotics. Lab Data Result diagrams: 07/11/21 14:32 07/11/21 14:32 Labs: Lab Results 07/11/21 07/11/21 07/11/21 Range/Units 14:32 14:32 14:32 WBC 13.4 H (4.8-10.8) X10*3/uL RBC 3.70 L D (4.20-5.50) X10*6/uL Hgb 12.1 D (12.0-16.0) g/dl Hct 38.7 D (37-47) % MCV 104.6 H (80-98) fL MCH 32.7 (27.0-33.0) pg MCHC 31.3 (31.0-35.0) g/dl RDW 14.8 (11.0-16.0) % Plt Count 245 (160-400) X10*3/uL MPV 10.8 (9.4-12.3) fL Immature Gran % (Auto) Cancelled Neut % (Auto) Cancelled Lymph % (Auto) Cancelled [place] % (Auto) Cancelled Eos % (Auto) Cancelled Baso % (Auto) Cancelled Lymph # (Auto) Cancelled [place] # (Auto) Cancelled Eos # (Auto) Cancelled Baso # (Auto) Cancelled Abs Immat Gran (auto) Cancelled Absolute Neuts (auto) Cancelled Absolute Nucleated RBC 0.030 H (0.0-0.012) X10*3/uL Nucleated RBC % (auto) 0.2 (0.0-0.2) /100WBC Sodium 145 (135-145) mmol/L Potassium 4.1 (3.3-5.1) mmol/L Chloride 107 (96-108) mmol/L Carbon Dioxide 23 (22-29) mmol/L Anion Gap 19 (12-20) BUN 64 H D (9-16) mg/dL Creatinine 1.33 (0.5-1.4) mg/dL Estim Creat Clear Calc 38.0 Estimated GFR 39 Random Glucose 225 H (60-115) mg/dL Lactic Acid 6.7 H* (0.5-2.0) mmol/L Calcium 9.4 D (8.4-10.2) mg/dL Total Bilirubin 0.2 (0.0-1.0) mg/dL Direct Bilirubin < 0.2 (0.0-0.5) mg/dL AST 16 (5-31) U/L ALT 12 (0-31) U/L Alkaline Phosphatase 62 (39-117) U/L Ammonia (13-55) umol/L Troponin I High Sens (<3.5-17.0) ng/L Total Protein 6.5 (6.5-8.0) g/dL Albumin 3.1 L (3.5-5.0) g/dL COVID-19 (LUISANA) (Negative) COVID-19 Clin Com 07/11/21 07/11/21 07/11/21 Range/Units 14:32 14:32 14:35 WBC (4.8-10.8) X10*3/uL RBC (4.20-5.50) X10*6/uL Hgb (12.0-16.0) g/dl Hct (37-47) % MCV (80-98) fL MCH (27.0-33.0) pg MCHC (31.0-35.0) g/dl RDW (11.0-16.0) % Plt Count (160-400) X10*3/uL MPV (9.4-12.3) fL Immature Gran % (Auto) Neut % (Auto) Lymph % (Auto) [place] % (Auto) Eos % (Auto) Baso % (Auto) Lymph # (Auto) [place] # (Auto) Eos # (Auto) Baso # (Auto) Abs Immat Gran (auto) Absolute Neuts (auto) Absolute Nucleated RBC (0.0-0.012) X10*3/uL Nucleated RBC % (auto) (0.0-0.2) /100WBC Sodium (135-145) mmol/L Potassium (3.3-5.1) mmol/L Chloride (96-108) mmol/L Carbon Dioxide (22-29) mmol/L Anion Gap (12-20) BUN (9-16) mg/dL Creatinine (0.5-1.4) mg/dL Estim Creat Clear Calc Estimated GFR Random Glucose (60-115) mg/dL Lactic Acid (0.5-2.0) mmol/L Calcium (8.4-10.2) mg/dL Total Bilirubin (0.0-1.0) mg/dL Direct Bilirubin (0.0-0.5) mg/dL AST (5-31) U/L ALT (0-31) U/L Alkaline Phosphatase (39-117) U/L Ammonia 20 (13-55) umol/L Troponin I High Sens 12.7 (<3.5-17.0) ng/L Total Protein (6.5-8.0) g/dL Albumin (3.5-5.0) g/dL COVID-19 (LUISANA) Negative (Negative) COVID-19 Clin Com See Note ECG Data Attestation: I personally reviewed and interpreted this ECG as follows: Prior ECG tracings: not available for review Interpretation: Rate 129 atrial fibrillation with rapid ventricular response no signs ischemia no ST elevations or depressions Discharge Plan Discharge Clinical Impression: Ulcer of left heel, PAD (peripheral artery disease), Acidosis, lactic, Atrial fibrillation with rapid ventricular response Patient Disposition: Admitted As Inpatient Prescriptions: No Action metformin 500 mg Tablet 500 mg PO BID RF: 0 trazodone 50 mg Tablet 25 mg PO BEDTIME RF: 0 polyethylene glycol 3350 17 gram Powder In Packet 17 g PO DAILY RF: 0 divalproex 500 mg Tablet,Delayed Release (Dr/Ec) 500 mg PO BID RF: 0 aspirin 81 mg Tablet,Delayed Release (Dr/Ec) 81 mg PO DAILY RF: 0 levothyroxine 100 mcg Tablet 100 mcg PO DAILY RF: 0 lorazepam 0.5 mg Tablet 0.5 mg PO DAILY@1800 RF: 0 Culturelle 10 billion cell Capsule 1 cap PO BID RF: 0 aripiprazole 15 mg Tablet 15 mg PO DAILY RF: 0 metoprolol tartrate 25 mg Tablet 25 mg PO BID RF: 0 duloxetine 20 mg Capsule,Delayed Release(Dr/Ec) 20 mg PO DAILY RF: 0 chlorhexidine gluconate [Peridex] 0.12 % Mouthwash 15 ml BUCCAL BID RF: 0
[2021-07-11 14:52] LABS: Ammonia 20 umol/L (13-55)
[2021-07-11 14:54] LABS: Hematocrit 38.7 % (37-47); Hemoglobin 12.1 g/dl (12.0-16.0); Mean Corpuscular HGB Conc 31.3 g/dl (31.0-35.0); Mean Corpuscular Hemoglobin 32.7 pg (27.0-33.0); Mean Corpuscular Volume 104.6 fL (80-98); Mean Platelet Volume 10.8 fL (9.4-12.3); NRBC Pct Auto 0.2 /100WBC (0.0-0.2); Platelet Count 245 X10*3/uL (160-400); Red Cell Distribution Width 14.8 % (11.0-16.0); White Blood Count 13.4 X10*3/uL (4.8-10.8)
[2021-07-11 15:01] LABS: Lactic Acid 6.7 mmol/L (0.5-2.0)
[2021-07-11 15:01] LABS: COVID-19 Test Negative (Negative); IDNOW Serial# 9DD0AD1C
[2021-07-11] MEDS: Lactated Ringers 1,000 ML 999 ML IV ×3 (15:01→23:52)
[2021-07-11 15:02] LABS: Alanine Aminotransferase 12 U/L (0-31); Albumin Level 3.1 g/dL (3.5-5.0); Alkaline Phosphatase 62 U/L (39-117); Anion Gap 19 (12-20); Aspartate Amino Transferase 16 U/L (5-31); Bilirubin Direct < 0.2 mg/dL (0.0-0.5); Bilirubin Total 0.2 mg/dL (0.0-1.0); Blood Urea Nitrogen 64 mg/dL (9-16); Calcium 9.4 mg/dL (8.4-10.2); Carbon Dioxide 23 mmol/L (22-29); Chloride 107 mmol/L (96-108); Estimated Glomerular Filt Rate 39; Glucose Random 225 mg/dL (60-115); Potassium 4.1 mmol/L (3.3-5.1); Sodium 145 mmol/L (135-145); Total Protein 6.5 g/dL (6.5-8.0)
[2021-07-11 15:06] LABS: Troponin-I High Sensitivity 12.7 ng/L (<3.5-17.0)
[2021-07-11 15:13] LABS: Valproate 67.2 mcg/mL (50.0-100.0)
[2021-07-11 15:29] LABS: Band Neutrophils Percent 1 % (3-5); Basophils Abs Manual 0.1 X10*3/uL (0.0-0.3); Basophils Percent Manual 1 % (0-1); Lymphocytes Absolute Manual 3.4 X10*3/uL (0.6-4.8); Lymphocytes Percent Manual 25 % (20-40); Metamyelocytes Absolute 0.4 X10*3/uL; Metamyelocytes Percent 3 %; Monocytes Absolute Manual 0.8 X10*3/uL (0.0-1.2); Monocytes Percent Manual 6 % (2-11); Myelocytes Absolute 0.3 X10*/uL; Myelocytes Percent 2 %; Neutrophils Absolute Manual 8.4 X10*3/uL (2.2-7.9); Neutrophils Percent Manual 62 % (45-73); Nucleated Red Blood Cells 1 /100WBC (0-0)
[2021-07-11 15:30] LABS: Platelet Estimate NORMAL (NORMAL); Platelet Morphology Comment NORMAL; Smudge Cells PRESENT; Toxic Vacuolation PRESENT
[2021-07-11 15:31] LABS: RBC Morphology NORMAL
[2021-07-11 15:45] LABS: C Reactive Protein 13.88 mg/dL (< or = 0.50)
[2021-07-11] MEDS: 0.9 % Sodium Chloride Flush 3 ML SYRINGE IVFLUSH (16:08)
[2021-07-11] MEDS: Lactated Ringers 500 ML 999 ML IV (16:08)
[2021-07-11] MEDS: Piperacillin Sodium/Tazobactam 3.375 GM in 0.9 % Sodium Chloride 50 ML IV (16:12)
[2021-07-11 16:19] LABS: Erythrocyte Sedimentation Rate 67 MM/HR (0-20)
--- NOTE | 2021-07-11 16:27 | P.HPHOSP_ITS ---
History of Present Illness Date of Service: 07/11/21 Attending physician on admission: Gerardo Stallings Chief Complaint: Sent from [facility] This is a 75 yo F with a PMH as outlined below who was brought in by ambulance after she was noted to be tachycardic while having an outpatient ultrasound. The patient has a history of vascular dementia and so history is extremely limited and is obtained from the ED provider and documentation. As mentioned above -- the patient was having an outpatient arterial ultrasound when she was noted to be in A. Fib with RVR sent here. Upon arrival to the ED she was noted to have HR in the 120s, RR 24. Her CBCD showed WBC of 13k. Further review of papework from the SNF showed that the patient was being treated for Levaquin and Cefuroxime for LLE wound. Admission was requested for non-healing LLE wound / cellulitis Patient is seen and examined in the ED. Her speech (which is reportedly at baseline) is difficult to comprehend. She is unable to provide any history. She does respond with pain when her LLE is moved. Review of Systems Review of Systems: Yes Unobtainable due to mental status [facility] Medical History Atrial fibrillation Chronic constipation Hypertension Hypothyroidism Recurrent bacteremia Recurrent cellulitis Schizoaffective disorder Trimalleolar fracture of ankle, closed Type 2 diabetes mellitus Vascular dementia Vitamin B12 deficiency Vitamin D deficiency Pertinent family history: unable to obtain due to patients current status Surgical History Status post ORIF of fracture of ankle Social History Household Members: None Housing: Skilled Nursing Do you presently have visiting nurse or other home services: No Patient Tobacco Use Status: Never used Tobacco Advance Directives Date on File: 05/15/21 service: No Current occupational status: disabled Meds Allergies Allergy/AdvReac Type Severity Reaction Status Date / Time No Known Allergies Allergy Verified 06/21/21 14:52 Active Medications: Current Medications Acetaminophen (Acetaminophen 325 Mg Tablet) 650 mg PO Q6H PRN PRN Reason: Pain, Mild (Pain Scale 1-3) Lactated Ringer's (Lr) 500 mls @ 999 mls/hr IV .Q31M CARRIE Stop: 07/11/21 16:30 Last Admin: 07/11/21 16:08 Dose: 999 mls/hr Documented by: Ondansetron HCl (Ondansetron Hcl 4 Mg/2 Ml Vial) 4 mg IVPUSH Q8H PRN PRN Reason: Nausea and Vomiting Pharmacy Consult (Consult Rx Perform Med Rec) 1 each MISCELLANE ONCE PRN PRN Reason: Consult order Sodium Chloride (0.9 % Sodium Chloride Flush 3 Ml Syringe) 3 ml IVFLUSH QSHIFT [facility] Last Admin: 07/11/21 16:08 Dose: 3 ml Documented by: Home Medications Medication Instructions Recorded Confirmed Last Taken Type Lactobacillus rhamnosus GG 10 1 cap PO BID 05/15/21 07/11/21 07/10/21 History billion cell capsule (Culturelle) aripiprazole 15 mg tablet 15 mg PO DAILY 05/15/21 07/11/21 07/10/21 History aspirin 81 mg tablet,delayed 81 mg PO DAILY 05/15/21 07/11/21 07/10/21 History release chlorhexidine gluconate 0.12 % 15 ml BUCCAL BID 05/15/21 07/11/21 07/10/21 History mouthwash (Peridex) divalproex 500 mg tablet,delayed 500 mg PO BID 05/15/21 07/11/21 07/10/21 History release duloxetine 20 mg capsule,delayed 20 mg PO DAILY 05/15/21 07/11/21 07/10/21 History release levothyroxine 100 mcg tablet 100 mcg PO DAILY 05/15/21 07/11/21 07/10/21 History lorazepam 0.5 mg tablet 0.5 mg PO DAILY@1800 05/15/21 07/11/21 07/10/21 History metformin 500 mg tablet 500 mg PO BID 05/15/21 07/11/21 07/10/21 History metoprolol tartrate 25 mg tablet 25 mg PO BID 05/15/21 07/11/21 07/10/21 History polyethylene glycol 3350 17 gram 17 g PO DAILY 05/15/21 07/11/21 07/10/21 History oral powder packet trazodone 50 mg tablet 25 mg PO BEDTIME 05/15/21 07/11/21 07/10/21 History cefuroxime axetil 250 mg tablet 250 mg PO BID 07/11/21 07/11/21 07/10/21 History levofloxacin 500 mg tablet 500 mg PO DAILY 07/11/21 07/11/21 07/10/21 History Physical Exam Vital Signs and Narrative: Vital Signs: Last Vital Signs Temp 98.6 F 07/11/21 14:41 Pulse 127 H 07/11/21 14:41 Resp 20 07/11/21 14:41 BP 123/71 07/11/21 14:41 Pulse Ox 98 07/11/21 14:41 Body Mass Index 29.1 Const: Other: Constitutional - Awake and Alert, ill appearing Eyes - PERRLA, EOMI Cardiovascular - IRR, HR around 115 Respiratory - Normal lung expansion, Normal respiratory effort, No respiratory distress, CTA bilaterally Gastrointestinal - NT / ND; +BS; No rebound or guarding - No CVA tenderness Extremities - non-healing wound LLE which appears necrotic and has a foul smell Musculoskeletal - Normal inspection, normal ROM Skin - see pictures below Neurological - awake and alert, speech difficult to comprehend; no facial assymetry, able to obey basic commands Psychological - Appropriate affect Skin: Other: Results Labs CBC and Chem 7: 07/11/21 14:32 07/11/21 14:32 Labs: Laboratory Results - last 24 hr 07/11/21 07/11/21 07/11/21 14:32 14:32 14:32 MCV 104.6 H MCH 32.7 MCHC 31.3 RDW 14.8 Plt Count 245 MPV 10.8 Immature Gran % (Auto) Cancelled Neut % (Auto) Cancelled Lymph % (Auto) Cancelled [place] % (Auto) Cancelled Eos % (Auto) Cancelled Baso % (Auto) Cancelled Lymph # (Auto) Cancelled [place] # (Auto) Cancelled Eos # (Auto) Cancelled Baso # (Auto) Cancelled Abs Immat Gran (auto) Cancelled Absolute Neuts (auto) Cancelled Absolute Nucleated RBC 0.030 H Nucleated RBC % (auto) 0.2 Neutrophils % (Manual) 62 Band Neutrophils % 1 L Lymphocytes % (Manual) 25 Monocytes % (Manual) 6 Basophils % (Manual) 1 Metamyelocytes % 3 Myelocytes % 2 Abs Neuts (Manual) 8.4 H Lymphocytes # (Manual) 3.4 Monocytes # (Manual) 0.8 Basophils # (Manual) 0.1 Metamyelocytes # 0.4 Myelocytes # 0.3 Nucleated RBCs 1 H Smudge Cells PRESENT Toxic Vacuolation PRESENT Platelet Estimate NORMAL Plt Morphology Comment NORMAL RBC Morphology NORMAL ESR Anion Gap 19 Estim Creat Clear Calc 38.0 Estimated GFR 39 Random Glucose 225 H Lactic Acid 6.7 H* Calcium 9.4 D Total Bilirubin 0.2 Direct Bilirubin < 0.2 AST 16 ALT 12 Alkaline Phosphatase 62 Ammonia Troponin I High Sens C-Reactive Protein 13.88 H Total Protein 6.5 Albumin 3.1 L Valproic Acid 67.2 COVID-19 (LUISANA) COVID-19 Clin Com 07/11/21 07/11/21 07/11/21 14:32 14:32 14:35 MCV MCH MCHC RDW Plt Count MPV Immature Gran % (Auto) Neut % (Auto) Lymph % (Auto) [place] % (Auto) Eos % (Auto) Baso % (Auto) Lymph # (Auto) [place] # (Auto) Eos # (Auto) Baso # (Auto) Abs Immat Gran (auto) Absolute Neuts (auto) Absolute Nucleated RBC Nucleated RBC % (auto) Neutrophils % (Manual) Band Neutrophils % Lymphocytes % (Manual) Monocytes % (Manual) Basophils % (Manual) Metamyelocytes % Myelocytes % Abs Neuts (Manual) Lymphocytes # (Manual) Monocytes # (Manual) Basophils # (Manual) Metamyelocytes # Myelocytes # Nucleated RBCs Smudge Cells Toxic Vacuolation Platelet Estimate Plt Morphology Comment RBC Morphology ESR Anion Gap Estim Creat Clear Calc Estimated GFR Random Glucose Lactic Acid Calcium Total Bilirubin Direct Bilirubin AST ALT Alkaline Phosphatase Ammonia 20 Troponin I High Sens 12.7 C-Reactive Protein Total Protein Albumin Valproic Acid COVID-19 (LUISANA) Negative COVID-19 Clin Com See Note 07/11/21 14:41 MCV MCH MCHC RDW Plt Count MPV Immature Gran % (Auto) Neut % (Auto) Lymph % (Auto) [place] % (Auto) Eos % (Auto) Baso % (Auto) Lymph # (Auto) [place] # (Auto) Eos # (Auto) Baso # (Auto) Abs Immat Gran (auto) Absolute Neuts (auto) Absolute Nucleated RBC Nucleated RBC % (auto) Neutrophils % (Manual) Band Neutrophils % Lymphocytes % (Manual) Monocytes % (Manual) Basophils % (Manual) Metamyelocytes % Myelocytes % Abs Neuts (Manual) Lymphocytes # (Manual) Monocytes # (Manual) Basophils # (Manual) Metamyelocytes # Myelocytes # Nucleated RBCs Smudge Cells Toxic Vacuolation Platelet Estimate Plt Morphology Comment RBC Morphology ESR 67 H Anion Gap Estim Creat Clear Calc Estimated GFR Random Glucose Lactic Acid Calcium Total Bilirubin Direct Bilirubin AST ALT Alkaline Phosphatase Ammonia Troponin I High Sens C-Reactive Protein Total Protein Albumin Valproic Acid COVID-19 (LUISANA) COVID-19 Clin Com Imaging Radiologist's Impressions: Impressions Foot X-Ray 07/11/21 14:17 IMPRESSION: Diffuse osteopenia with moderate distal dorsal foot soft tissue swelling. Question reflects sympathetic dystrophy. Unremarkable chest exam. Chest X-Ray 07/11/21 14:18 IMPRESSION: Diffuse osteopenia with moderate distal dorsal foot soft tissue swelling. Question reflects sympathetic dystrophy. Unremarkable chest exam. Assessment and Plan (1) Severe sepsis: Status: Acute This is a 75-year-old female with a past medical history of suspected peripheral artery disease, on anticoagulation, hypothyroid, recurrent bacteremia, vascular dementia, type 2 diabetes who presents to the hospital after being sent from outpatient ultrasound for tachycardia. Her workup in the emergency room is concerning for sepsis secondary to non-healing ulcer of the left lower extremity and cellulitis. 1. Severe sepsis due to LLE non-healing wound and cellulitis Meets sepsis criteria with leukocytosis and tachypnea. Also is tachycardic and although in rapid AFib I suspect her rapid AFib is from sepsis. Meets severe features with elevated lactate (6.7). This could be worsened from metformin use, but it has not been this elevated during her last admission when she was also septic. Given sepsis fluid bolus based on ideal body weight -- 62kg. Continue vancomcyin, start zosyn (would cx from would clinic end of last month growing pseudomonas) Vascular Consult 2. SHREYAS her baseline SCr is around 0.6-0.7 range; today 1.33 due to above monitor and renally dose meds 3. A. fib with RVR rates in the 110s at time of admission will give oral metoprolol 25mg (home dose) and if needed start cardizem gtt 4. DM hold metformin sliding scale 5. Schizoaffective d/o continuse her baseline meds 6. Hypothyroidism synthroid Full Code per MOLST on EMR -- to d/w her HCP tomorrow re: code status Quality Stroke Does the patient have a stroke diagnosis?: No VTE Prior VTE?: No VTE Risk Level:: Medical - moderate - high VTE Device Contraindication: Treatment Not Indicated VTE Drug Contraindication: N/A - Med Ordered
--- NOTE | 2021-07-11 16:34 | PC.NURSE ---
patient arrives to ED with elevated HR. Sinustachycardia. All other VSS. Labs drawn and sent. IV placed and flushed. BC obtained. IVF started and given, as well as meds per MAR. Patient has gonzalez in place. Resting safely.
--- NOTE | 2021-07-11 16:40 | PHA.MEDREC ---
Pharmacy Consult ? Medication Reconciliation Pharmacy has completed the medication reconciliation. Patient from [facility] Thanks Cyndie Fong Pharm. D
[2021-07-11 16:42] LABS: Reflex Lactate? Lactic Acid Added
[2021-07-11] MEDS: vancomycin HCL 1,250 MG in 0.9 % Sodium Chloride 250 ML 166.67 MG IV (17:10)
[2021-07-11] MEDS: LORazepam 0.5 MG TABLET PO (17:18)
[2021-07-11] MEDS: Metoprolol Tartrate 25 MG TABLET PO ×2 (17:18→20:36)
[2021-07-11] MEDS: Enoxaparin Sodium 40 MG/0.4 ML SYRINGE SUBCUT (17:19)
[2021-07-11 18:46] LABS: ~Lactic Acid-LAB USE ONLY 3.7 mmol/L (0.5-2.0)
[2021-07-11 20:31] LABS: Reflex Lactate? 2 Y
[2021-07-11 20:36] LABS: Glucose, Whole Blood 146 mg/dL (60-115)
[2021-07-11] MEDS: traZODone HCL 25 MG HALFTAB PO (20:36)
[2021-07-11] MEDS: Divalproex Sodium 500 MG TABLET.DR PO (20:36)
[2021-07-11] MEDS: Chlorhexidine Gluc Oral Rinse 15 ML MOUTHWASH BUCCAL (20:39)
[2021-07-11 21:33] LABS: ~Lactic Acid-LAB USE ONLY 2.3 mmol/L (0.5-2.0)
[2021-07-11] MEDS: Piperacillin Sodium/Tazobactam 2.25 GM in 0.9 % Sodium Chloride 50 ML IV (22:57)
--- NOTE | 2021-07-11 23:17 | PC.NURSE ---
Pt non verbal, pt able to respond to painful stimulus. pt incontinent of stool, complete bed change. pt has wound in coccyx, area cleaned and dry. Dressing applied. Oral care completed. Called Hospitalist in regards to low blood pressure. LR ordered. Will continue monitor.
[2021-07-12] VITALS (7 sets, daily range): BP systolic 105–151; BP diastolic 50–69; PULSE 101–121; RESP 15–16; TEMP 36; O2SAT 99–100
[2021-07-12] MEDS: Piperacillin Sodium/Tazobactam 2.25 GM in 0.9 % Sodium Chloride 50 ML IV ×4 (06:18→21:35)
--- NOTE | 2021-07-12 06:25 | PC.NURSE ---
delay in antibiotic due to down time, missed order. Next due will by 12:30 for zosyn. Pt repositioned, alec care complete and barrier cream applied. Dressing change to coccyx after being solid. Urine out put was 600cc.
[2021-07-12] MEDS: vancomycin HCL 500 MG in 0.9 % Sodium Chloride 100 ML 110 MG IV ×2 (07:30→21:34)
[2021-07-12] MEDS: Levothyroxine Sodium 100 MCG TABLET PO (07:30)
[2021-07-12 07:46] LABS: Hematocrit 34.2 % (37-47); Hemoglobin 10.7 g/dl (12.0-16.0); Mean Corpuscular HGB Conc 31.3 g/dl (31.0-35.0); Mean Corpuscular Hemoglobin 32.4 pg (27.0-33.0); Mean Corpuscular Volume 103.6 fL (80-98); Mean Platelet Volume 10.9 fL (9.4-12.3); Platelet Count 192 X10*3/uL (160-400); Red Cell Distribution Width 14.8 % (11.0-16.0); White Blood Count 7.9 X10*3/uL (4.8-10.8)
--- NOTE | 2021-07-12 07:59 | PC.NURSE ---
pt with coughing after swallowing water. MD notified via TT and phone call about swallow eval on this pt. unable to contact at this time. will try again later.
[2021-07-12 08:11] LABS: Anion Gap 12 (12-20); Blood Urea Nitrogen 40 mg/dL (9-16); Calcium 8.7 mg/dL (8.4-10.2); Carbon Dioxide 29 mmol/L (22-29); Chloride 112 mmol/L (96-108); Creatinine Clr Calc Pharmacy 68.3; Estimated Glomerular Filt Rate > 60; Glucose Random 157 mg/dL (60-115); Potassium 3.5 mmol/L (3.3-5.1); Sodium 149 mmol/L (135-145)
[2021-07-12 08:28] LABS: Band Neutrophils Percent 6 % (3-5); Basophils Abs Manual 0.2 X10*3/uL (0.0-0.3); Basophils Percent Manual 2 % (0-1); Eosinophils Absolute Manual 0.2 X10*3/UL (0.0-0.8); Eosinophils Percent Manual 2 % (0-4); Lymphocytes Absolute Manual 1.4 X10*3/uL (0.6-4.8); Lymphocytes Percent Manual 18 % (20-40); Metamyelocytes Absolute 0.5 X10*3/uL; Metamyelocytes Percent 6 %; Monocytes Absolute Manual 0.7 X10*3/uL (0.0-1.2); Monocytes Percent Manual 9 % (2-11); Myelocytes Absolute 0.2 X10*/uL; Myelocytes Percent 2 %; Neutrophils Absolute Manual 4.8 X10*3/uL (2.2-7.9); Neutrophils Percent Manual 55 % (45-73)
[2021-07-12 08:30] LABS: Hypochromasia 1+ (5-14) /OIF; Macrocytosis 1+ (5-14) /OIF; Platelet Estimate NORMAL (NORMAL); Platelet Morphology Comment NORMAL; Polychromasia 1+ (0-2) /OIF; RBC Morphology NOTED; Target Cells 1+ (5-14) /OIF
[2021-07-12 11:54] LABS: Glucose, Whole Blood 126 mg/dL (60-115)
--- NOTE | 2021-07-12 12:35 | PM.CNGS ---
History of Present Illness Consult details Consult date: 07/12/21 Narrative: Very pleasant 75-year-old female who presents from a facility was actually scheduled for an outpatient ultrasound by me. Upon presentation for ultrasound she was noted to be an AFib with rapid ventricular response. She was subsequently admitted to the ER. She is noted to have this nonhealing left heel ulcer. Of note she is nonambulatory. She now presents to us for vascular evaluation. Patient was seen and examined in the emergency room in ER bed 10 Review of Systems Review of Systems: Yes all other systems are reviewed and are negative Constitutional: Constitutional: Reports no additional constitutional complaints ENT: Reports Normal hearing present Cardiovascular: Cardiovascular: Denies chest pain, Denies chest pain at rest, Denies chest pain with activity and Denies pedal edema Respiratory: Respiratory: Denies cough Gastrointestinal: Gastrointestinal: Denies abdominal pain Musculoskeletal: Musculoskeletal: Denies abnormal gait, Denies muscle cramps and Denies radiating pain into limb Integumentary/Breasts: Skin/Breast: Denies skin ulcer and Denies wounds Neurologic: Reports Normal hearing present and Denies abnormal gait Psychiatric: Psychiatric: Reports no additional psychiatric complaints PMFSH Past Medical History Medical History Atrial fibrillation Chronic constipation Hypertension Hypothyroidism Recurrent bacteremia Recurrent cellulitis Schizoaffective disorder Trimalleolar fracture of ankle, closed Type 2 diabetes mellitus Vascular dementia Vitamin B12 deficiency Vitamin D deficiency Surgical History Surgical History Status post ORIF of fracture of ankle Social History Social History Household Members: None Housing: Retirement Do you presently have visiting nurse or other home services: No Patient Tobacco Use Status: Never used Tobacco Advance Directives: Yes Advance Directives on File: Yes Advance Directives Date on File: 05/15/21 service: No Current occupational status: disabled Meds Allergies Allergy/AdvReac Type Severity Reaction Status Date / Time No Known Allergies Allergy Verified 06/21/21 14:52 Active Medications: Current Medications Acetaminophen (Acetaminophen 325 Mg Tablet) 650 mg PO Q6H PRN PRN Reason: Pain, Mild (Pain Scale 1-3) Aripiprazole (Aripiprazole 15 Mg Tablet) 15 mg PO DAILY [facility] Aspirin (Aspirin Enteric Coated 81 Mg Tablet.) 81 mg PO DAILY [facility] Chlorhexidine Gluconate (Chlorhexidine Gluc Oral Rinse 15 Ml Mouthwash) 15 ml BUCCAL BID [facility] Last Admin: 07/11/21 20:39 Dose: 15 ml Documented by: Divalproex Sodium (Divalproex Sodium 500 Mg Tablet.) 500 mg PO BID [facility] Last Admin: 07/11/21 20:36 Dose: 500 mg Documented by: Duloxetine HCl (Duloxetine Hcl 20 Mg Capsule.) 20 mg PO DAILY [facility] Enoxaparin Sodium (Enoxaparin Sodium 40 Mg/0.4 Ml Syringe) 40 mg SUBCUT Q24H [facility] Last Admin: 07/11/21 17:19 Dose: 40 mg Documented by: Piperacillin Sod/Tazobactam (Sod 2.25 gm/ Sodium Chloride) 50 mls @ 100 mls/hr IV Q6H [facility] Last Admin: 07/12/21 11:41 Dose: 100 mls/hr Documented by: Vancomycin HCl 500 mg/ Sodium (Chloride) 110 mls @ 110 mls/hr IV Q12H [facility] Last Admin: 07/12/21 07:30 Dose: 110 mls/hr Documented by: Insulin Human Lispro (Insulin Lispro 100 Unit/Ml 3 Ml Vial) 5 unit SUBCUT QIDACHS [facility] Last Admin: 07/12/21 11:50 Dose: Not Given Documented by: Levothyroxine Sodium (Levothyroxine Sodium 100 Mcg Tablet) 100 mcg PO DAILY@0600 [facility] Last Admin: 07/12/21 07:30 Dose: 100 mcg Documented by: Lorazepam (Lorazepam 0.5 Mg Tablet) 0.5 mg PO DAILY@1800 [facility] Last Admin: 07/11/21 17:18 Dose: 0.5 mg Documented by: Metoprolol Tartrate (Metoprolol Tartrate 25 Mg Tablet) 25 mg PO BID [facility]; Protocol Last Admin: 07/11/21 20:36 Dose: 25 mg Documented by: Ondansetron HCl (Ondansetron Hcl 4 Mg/2 Ml Vial) 4 mg IVPUSH Q8H PRN PRN Reason: Nausea and Vomiting Pharmacy Consult (Consult Rx Perform Med Rec) 1 each MISCELLANE ONCE PRN PRN Reason: Consult order Pharmacy Consult (Consult Rx Vancomycin Dosing) 1 each MISCELLANE DAILY PRN PRN Reason: Consult order Polyethylene Glycol (Polyethylene Glycol 3350 17 Gm Powd.Pack) 17 gm PO DAILY [facility] Sodium Chloride (0.9 % Sodium Chloride Flush 3 Ml Syringe) 3 ml IVFLUSH QSHIFT [facility] Last Admin: 07/12/21 06:32 Dose: Not Given Documented by: Trazodone HCl (Trazodone Hcl 25 Mg Halftab) 25 mg PO BEDTIME [facility] Last Admin: 07/11/21 20:36 Dose: 25 mg Documented by: Home Medications Medication Instructions Recorded Confirmed Last Taken Type Lactobacillus rhamnosus GG 10 1 cap PO BID 05/15/21 07/11/21 07/10/21 History billion cell capsule (Culturelle) aripiprazole 15 mg tablet 15 mg PO DAILY 05/15/21 07/11/21 07/10/21 History aspirin 81 mg tablet,delayed 81 mg PO DAILY 05/15/21 07/11/21 07/10/21 History release chlorhexidine gluconate 0.12 % 15 ml BUCCAL BID 05/15/21 07/11/21 07/10/21 History mouthwash (Peridex) divalproex 500 mg tablet,delayed 500 mg PO BID 05/15/21 07/11/21 07/10/21 History release duloxetine 20 mg capsule,delayed 20 mg PO DAILY 05/15/21 07/11/21 07/10/21 History release levothyroxine 100 mcg tablet 100 mcg PO DAILY 05/15/21 07/11/21 07/10/21 History lorazepam 0.5 mg tablet 0.5 mg PO DAILY@1800 05/15/21 07/11/21 07/10/21 History metformin 500 mg tablet 500 mg PO BID 05/15/21 07/11/21 07/10/21 History metoprolol tartrate 25 mg tablet 25 mg PO BID 05/15/21 07/11/21 07/10/21 History polyethylene glycol 3350 17 gram 17 g PO DAILY 05/15/21 07/11/21 07/10/21 History oral powder packet trazodone 50 mg tablet 25 mg PO BEDTIME 05/15/21 07/11/21 07/10/21 History cefuroxime axetil 250 mg tablet 250 mg PO BID 07/11/21 07/11/21 07/10/21 History levofloxacin 500 mg tablet 500 mg PO DAILY 07/11/21 07/11/21 07/10/21 History Physical Exam Vital Signs: Vital Signs: Last Vital Signs Temp 98 F 07/11/21 20:35 Pulse 115 H 07/12/21 08:00 Resp 15 07/12/21 08:00 BP 105/69 07/12/21 08:00 Pulse Ox 99 07/12/21 08:00 Body Mass Index 29.1 Const: General: cooperative, healthy appearing and comfortable Orientation/consciousness: oriented to person, oriented to place and oriented to time HENMT: Head: Yes normal to inspection Neck: Neck: Yes normal visual inspection Carotids: no bruits Chest: Chest palpation & inspection: normal inspection of the chest Resp: Effort & Inspection: normal respiratory effort and able to speak in complete sentences Auscultation: clear to auscultation bilaterally, no crackles, no rales, no rhonchi and no wheezes Cardio: Rate: regular rate Rhythm: regular rhythm Heart sounds: S1 normal heart sound present and S2 normal heart sound present Bruits: no carotid bruits Peripheral pulses: dorsalis pedis present (Bilateral DP signals) GI: Inspection: Yes normal to inspection Skin: Wounds: wounds noted (Necrotic left heel ulceration with surrounding cellulitis) Hair: normal Neuro: General: oriented to person, oriented to place and oriented to time Cranial nerves: Yes CN's II-XII intact bilaterally and Yes Normal hearing present Cognition (Neuro): normal cognition Motor exam (neuro): 5/5 motor strength present throughout Extrem: Other: venous exam: No significant superficial varicosities or spider telangiectasias, minimal edema General: No clubbing, No cyanosis and No edema Psych: Appearance: grossly normal Mental Status: mental status grossly normal Speech and movement: Normal speech and movement present Results Labs Result diagrams: 07/12/21 07:05 07/12/21 07:05 Labs: Abnormal lab results 07/11/21 07/11/21 07/11/21 Range/Units 14:32 14:32 14:32 WBC 13.4 H (4.8-10.8) X10*3/uL RBC 3.70 L D (4.20-5.50) X10*6/uL Hgb (12.0-16.0) g/dl Hct (37-47) % MCV 104.6 H (80-98) fL Absolute Nucleated RBC 0.030 H (0.0-0.012) X10*3/uL Band Neutrophils % 1 L (3-5) % Lymphocytes % (Manual) (20-40) % Basophils % (Manual) (0-1) % Abs Neuts (Manual) 8.4 H (2.2-7.9) X10*3/uL Nucleated RBCs 1 H (0-0) /100WBC ESR (0-20) MM/HR Sodium (135-145) mmol/L Chloride (96-108) mmol/L BUN 64 H D (9-16) mg/dL POC Glucose (60-115) mg/dL Random Glucose 225 H (60-115) mg/dL Lactic Acid 6.7 H* (0.5-2.0) mmol/L Lactic Acid Fup @ 2Hr (0.5-2.0) mmol/L Lactic Acid Fup @ 4Hr (0.5-2.0) mmol/L C-Reactive Protein 13.88 H (< or = 0.50) mg/dL Albumin 3.1 L (3.5-5.0) g/dL 07/11/21 07/11/21 07/11/21 Range/Units 14:41 18:26 20:32 WBC (4.8-10.8) X10*3/uL RBC (4.20-5.50) X10*6/uL Hgb (12.0-16.0) g/dl Hct (37-47) % MCV (80-98) fL Absolute Nucleated RBC (0.0-0.012) X10*3/uL Band Neutrophils % (3-5) % Lymphocytes % (Manual) (20-40) % Basophils % (Manual) (0-1) % Abs Neuts (Manual) (2.2-7.9) X10*3/uL Nucleated RBCs (0-0) /100WBC ESR 67 H (0-20) MM/HR Sodium (135-145) mmol/L Chloride (96-108) mmol/L BUN (9-16) mg/dL POC Glucose 146 H (60-115) mg/dL Random Glucose (60-115) mg/dL Lactic Acid (0.5-2.0) mmol/L Lactic Acid Fup @ 2Hr 3.7 H* (0.5-2.0) mmol/L Lactic Acid Fup @ 4Hr (0.5-2.0) mmol/L C-Reactive Protein (< or = 0.50) mg/dL Albumin (3.5-5.0) g/dL 07/11/21 07/12/21 07/12/21 Range/Units 21:13 07:05 07:05 WBC (4.8-10.8) X10*3/uL RBC 3.30 L (4.20-5.50) X10*6/uL Hgb 10.7 L (12.0-16.0) g/dl Hct 34.2 L (37-47) % MCV 103.6 H (80-98) fL Absolute Nucleated RBC (0.0-0.012) X10*3/uL Band Neutrophils % 6 H (3-5) % Lymphocytes % (Manual) 18 L (20-40) % Basophils % (Manual) 2 H (0-1) % Abs Neuts (Manual) (2.2-7.9) X10*3/uL Nucleated RBCs (0-0) /100WBC ESR (0-20) MM/HR Sodium 149 H (135-145) mmol/L Chloride 112 H (96-108) mmol/L BUN 40 H (9-16) mg/dL POC Glucose (60-115) mg/dL Random Glucose 157 H (60-115) mg/dL Lactic Acid (0.5-2.0) mmol/L Lactic Acid Fup @ 2Hr (0.5-2.0) mmol/L Lactic Acid Fup @ 4Hr 2.3 H* (0.5-2.0) mmol/L C-Reactive Protein (< or = 0.50) mg/dL Albumin (3.5-5.0) g/dL 07/12/21 Range/Units 11:49 WBC (4.8-10.8) X10*3/uL RBC (4.20-5.50) X10*6/uL Hgb (12.0-16.0) g/dl Hct (37-47) % MCV (80-98) fL Absolute Nucleated RBC (0.0-0.012) X10*3/uL Band Neutrophils % (3-5) % Lymphocytes % (Manual) (20-40) % Basophils % (Manual) (0-1) % Abs Neuts (Manual) (2.2-7.9) X10*3/uL Nucleated RBCs (0-0) /100WBC ESR (0-20) MM/HR Sodium (135-145) mmol/L Chloride (96-108) mmol/L BUN (9-16) mg/dL POC Glucose 126 H (60-115) mg/dL Random Glucose (60-115) mg/dL Lactic Acid (0.5-2.0) mmol/L Lactic Acid Fup @ 2Hr (0.5-2.0) mmol/L Lactic Acid Fup @ 4Hr (0.5-2.0) mmol/L C-Reactive Protein (< or = 0.50) mg/dL Albumin (3.5-5.0) g/dL Short CBC 07/11/21 07/12/21 Range/Units 14:32 07:05 WBC 13.4 H 7.9 (4.8-10.8) X10*3/uL Hgb 12.1 D 10.7 L (12.0-16.0) g/dl Hct 38.7 D 34.2 L (37-47) % Plt Count 245 192 (160-400) X10*3/uL BMP 07/11/21 07/12/21 14:32 07:05 Sodium 145 149 H Potassium 4.1 3.5 Chloride 107 112 H Carbon Dioxide 23 29 BUN 64 H D 40 H Creatinine 1.33 0.74 Calcium 9.4 D 8.7 D Liver Function 07/11/21 Range/Units 14:32 Total Bilirubin 0.2 (0.0-1.0) mg/dL Direct Bilirubin < 0.2 (0.0-0.5) mg/dL AST 16 (5-31) U/L ALT 12 (0-31) U/L Alkaline Phosphatase 62 (39-117) U/L Albumin 3.1 L (3.5-5.0) g/dL All other labs normal. Assessment and Plan (1) PAD (peripheral artery disease): Status: Acute In short patient has nonhealing left heel ulcer. Once she is stabilized would like to try to get noninvasive testing. The concern here is her overall status. She is nonambulatory should this progress in become a more severe problem may be better served with an amputation. At the current time would continue with antibiotics and we will obtain noninvasive arterial testing. Thank you for allowing us to assist in her care. If there are any questions or concerns please do not hesitate to contact us. Procedures Date of Service Date of Service: 07/12/21
--- NOTE | 2021-07-12 12:45 | PC.NURSE ---
pt resting in stretcher, arousable to voice, answers to name. call frank in reach.
[2021-07-12] MEDS: 0.9 % Sodium Chloride Flush 3 ML SYRINGE IVFLUSH ×3 (12:52→21:35)
--- NOTE | 2021-07-12 12:53 | PC.NURSE ---
PT FAILED SALLOW EVAL, UNABLE TO TAKE PO MEDICATIONS, INSULIN NOT GIVEN TO BG OF 125 AND NPO
--- NOTE | 2021-07-12 13:34 | HO.PM.IMPN ---
Subjective Subjective Date of Service: 07/12/21 Interval History: Seen and examined this morning Follow-up for atrial fibrillation, nonhealing left leg wound History of dementia, difficult to obtain history, review of systems Review of Systems Review of Systems: Yes Unobtainable due to mental condition Physical Exam Vital Signs: Vital Signs: Last Vital Signs Temp 98 F 07/11/21 20:35 Pulse 115 H 07/12/21 08:00 Resp 15 07/12/21 08:00 BP 105/69 07/12/21 08:00 Pulse Ox 99 07/12/21 08:00 Body Mass Index 29.1 Const: Other: Dry mucous membranes General: awake Nutritional Appearance: well nourished HENMT: Head: Yes normocephalic and Yes atraumatic Eyes: Sclerae: sclerae normal Pupils: Equal, round and reactive pupils present Resp: Effort & Inspection: normal respiratory effort and no respiratory distress GI: Palpation (GI): Soft to palpation and nontender Skin: Other: Left leg wrapped in bandage Neuro: Cranial nerves: Yes CN's II-XII intact bilaterally, Yes Equal, round and reactive pupils present and Yes Bilaterally intact EOM present Objective Data Active Medications Acetaminophen (Acetaminophen 325 Mg Tablet) 650 mg PO Q6H PRN PRN Reason: Pain, Mild (Pain Scale 1-3) Aripiprazole (Aripiprazole 15 Mg Tablet) 15 mg PO DAILY [facility] Last Admin: 07/12/21 12:51 Dose: Not Given Documented by: ALLY Non-Admin Reason: NPO Aspirin (Aspirin Enteric Coated 81 Mg Tablet.) 81 mg PO DAILY [facility] Last Admin: 07/12/21 12:51 Dose: Not Given Documented by: ALLY Non-Admin Reason: NPO Chlorhexidine Gluconate (Chlorhexidine Gluc Oral Rinse 15 Ml Mouthwash) 15 ml BUCCAL BID [facility] Last Admin: 07/12/21 12:50 Dose: Not Given Documented by: ALLY Non-Admin Reason: NPO Divalproex Sodium (Divalproex Sodium 500 Mg Tablet.) 500 mg PO BID [facility] Last Admin: 07/12/21 12:50 Dose: Not Given Documented by: ALLY Non-Admin Reason: NPO Duloxetine HCl (Duloxetine Hcl 20 Mg Capsule.) 20 mg PO DAILY [facility] Last Admin: 07/12/21 12:51 Dose: Not Given Documented by: ALLY Non-Admin Reason: NPO Enoxaparin Sodium (Enoxaparin Sodium 40 Mg/0.4 Ml Syringe) 40 mg SUBCUT Q24H [facility] Last Admin: 07/11/21 17:19 Dose: 40 mg Documented by: JUAN Piperacillin Sod/Tazobactam (Sod 2.25 gm/ Sodium Chloride) 50 mls @ 100 mls/hr IV Q6H [facility] Last Admin: 07/12/21 11:41 Dose: 100 mls/hr Documented by: ELISHA Vancomycin HCl 500 mg/ Sodium (Chloride) 110 mls @ 110 mls/hr IV Q12H [facility] Last Admin: 07/12/21 07:30 Dose: 110 mls/hr Documented by: ALLY Insulin Human Lispro (Insulin Lispro 100 Unit/Ml 3 Ml Vial) 5 unit SUBCUT QIDACHS [facility] Last Admin: 07/12/21 11:50 Dose: Not Given Documented by: ELISHA Non-Admin Reason: Patient Condition Contraindication Levothyroxine Sodium (Levothyroxine Sodium 100 Mcg Tablet) 100 mcg PO DAILY@0600 [facility] Last Admin: 07/12/21 07:30 Dose: 100 mcg Documented by: ALLY Lorazepam (Lorazepam 0.5 Mg Tablet) 0.5 mg PO DAILY@1800 [facility] Last Admin: 07/11/21 17:18 Dose: 0.5 mg Documented by: JUAN Metoprolol Tartrate (Metoprolol Tartrate 25 Mg Tablet) 25 mg PO BID [facility]; Protocol Last Admin: 07/12/21 12:50 Dose: Not Given Documented by: ALLY Non-Admin Reason: NPO Ondansetron HCl (Ondansetron Hcl 4 Mg/2 Ml Vial) 4 mg IVPUSH Q8H PRN PRN Reason: Nausea and Vomiting Pharmacy Consult (Consult Rx Perform Med Rec) 1 each MISCELLANE ONCE PRN PRN Reason: Consult order Pharmacy Consult (Consult Rx Vancomycin Dosing) 1 each MISCELLANE DAILY PRN PRN Reason: Consult order Polyethylene Glycol (Polyethylene Glycol 3350 17 Gm Powd.Pack) 17 gm PO DAILY [facility] Last Admin: 07/12/21 12:51 Dose: Not Given Documented by: ALLY Non-Admin Reason: NPO Sodium Chloride (0.9 % Sodium Chloride Flush 3 Ml Syringe) 3 ml IVFLUSH QSHIFT [facility] Last Admin: 07/12/21 12:52 Dose: 3 ml Documented by: ALLY Trazodone HCl (Trazodone Hcl 25 Mg Halftab) 25 mg PO BEDTIME [facility] Last Admin: 07/11/21 20:36 Dose: 25 mg Documented by: JUAN Labs CBC & Chem 7: 07/12/21 07:05 07/12/21 07:05 Labs: Laboratory Results - last 24 hr 07/11/21 07/11/21 07/11/21 14:32 14:32 14:32 MCV 104.6 H MCH 32.7 MCHC 31.3 RDW 14.8 Plt Count 245 MPV 10.8 Immature Gran % (Auto) Cancelled Neut % (Auto) Cancelled Lymph % (Auto) Cancelled Evans % (Auto) Cancelled Eos % (Auto) Cancelled Baso % (Auto) Cancelled Lymph # (Auto) Cancelled Evans # (Auto) Cancelled Eos # (Auto) Cancelled Baso # (Auto) Cancelled Abs Immat Gran (auto) Cancelled Absolute Neuts (auto) Cancelled Absolute Nucleated RBC 0.030 H Nucleated RBC % (auto) 0.2 Neutrophils % (Manual) 62 Band Neutrophils % 1 L Lymphocytes % (Manual) 25 Monocytes % (Manual) 6 Eosinophils % (Manual) Basophils % (Manual) 1 Metamyelocytes % 3 Myelocytes % 2 Abs Neuts (Manual) 8.4 H Lymphocytes # (Manual) 3.4 Monocytes # (Manual) 0.8 Eosinophils # (Manual) Basophils # (Manual) 0.1 Metamyelocytes # 0.4 Myelocytes # 0.3 Nucleated RBCs 1 H Smudge Cells PRESENT Toxic Vacuolation PRESENT Platelet Estimate NORMAL Plt Morphology Comment NORMAL RBC Morphology NORMAL Polychromasia Hypochromasia Macrocytosis Target Cells ESR Anion Gap 19 Estim Creat Clear Calc 38.0 Estimated GFR 39 POC Glucose Random Glucose 225 H Lactic Acid 6.7 H* Lactic Acid Fup @ 2Hr Lactic Acid Fup @ 4Hr Calcium 9.4 D Total Bilirubin 0.2 Direct Bilirubin < 0.2 AST 16 ALT 12 Alkaline Phosphatase 62 Ammonia Troponin I High Sens C-Reactive Protein 13.88 H Total Protein 6.5 Albumin 3.1 L Valproic Acid 67.2 COVID-19 ([facility]ISANA) COVID-19 Clin Com 07/11/21 07/11/21 07/11/21 14:32 14:32 14:35 MCV MCH MCHC RDW Plt Count MPV Immature Gran % (Auto) Neut % (Auto) Lymph % (Auto) Evans % (Auto) Eos % (Auto) Baso % (Auto) Lymph # (Auto) Evans # (Auto) Eos # (Auto) Baso # (Auto) Abs Immat Gran (auto) Absolute Neuts (auto) Absolute Nucleated RBC Nucleated RBC % (auto) Neutrophils % (Manual) Band Neutrophils % Lymphocytes % (Manual) Monocytes % (Manual) Eosinophils % (Manual) Basophils % (Manual) Metamyelocytes % Myelocytes % Abs Neuts (Manual) Lymphocytes # (Manual) Monocytes # (Manual) Eosinophils # (Manual) Basophils # (Manual) Metamyelocytes # Myelocytes # Nucleated RBCs Smudge Cells Toxic Vacuolation Platelet Estimate Plt Morphology Comment RBC Morphology Polychromasia Hypochromasia Macrocytosis Target Cells ESR Anion Gap Estim Creat Clear Calc Estimated GFR POC Glucose Random Glucose Lactic Acid Lactic Acid Fup @ 2Hr Lactic Acid Fup @ 4Hr Calcium Total Bilirubin Direct Bilirubin AST ALT Alkaline Phosphatase Ammonia 20 Troponin I High Sens 12.7 C-Reactive Protein Total Protein Albumin Valproic Acid COVID-19 ([facility]ISANA) Negative COVID-19 Clin Com See Note 07/11/21 07/11/21 07/11/21 14:41 18:26 20:32 MCV MCH MCHC RDW Plt Count MPV Immature Gran % (Auto) Neut % (Auto) Lymph % (Auto) Evans % (Auto) Eos % (Auto) Baso % (Auto) Lymph # (Auto) Evans # (Auto) Eos # (Auto) Baso # (Auto) Abs Immat Gran (auto) Absolute Neuts (auto) Absolute Nucleated RBC Nucleated RBC % (auto) Neutrophils % (Manual) Band Neutrophils % Lymphocytes % (Manual) Monocytes % (Manual) Eosinophils % (Manual) Basophils % (Manual) Metamyelocytes % Myelocytes % Abs Neuts (Manual) Lymphocytes # (Manual) Monocytes # (Manual) Eosinophils # (Manual) Basophils # (Manual) Metamyelocytes # Myelocytes # Nucleated RBCs Smudge Cells Toxic Vacuolation Platelet Estimate Plt Morphology Comment RBC Morphology Polychromasia Hypochromasia Macrocytosis Target Cells ESR 67 H Anion Gap Estim Creat Clear Calc Estimated GFR POC Glucose 146 H Random Glucose Lactic Acid Lactic Acid Fup @ 2Hr 3.7 H* Lactic Acid Fup @ 4Hr Calcium Total Bilirubin Direct Bilirubin AST ALT Alkaline Phosphatase Ammonia Troponin I High Sens C-Reactive Protein Total Protein Albumin Valproic Acid COVID-19 ([facility]ISANA) COVID-19 Clin Com 07/11/21 07/12/21 07/12/21 21:13 07:05 07:05 MCV 103.6 H MCH 32.4 MCHC 31.3 RDW 14.8 Plt Count 192 MPV 10.9 Immature Gran % (Auto) Cancelled Neut % (Auto) Cancelled Lymph % (Auto) Cancelled Evans % (Auto) Cancelled Eos % (Auto) Cancelled Baso % (Auto) Cancelled Lymph # (Auto) Cancelled Evans # (Auto) Cancelled Eos # (Auto) Cancelled Baso # (Auto) Cancelled Abs Immat Gran (auto) Cancelled Absolute Neuts (auto) Cancelled Absolute Nucleated RBC 0.000 Nucleated RBC % (auto) 0.0 Neutrophils % (Manual) 55 Band Neutrophils % 6 H Lymphocytes % (Manual) 18 L Monocytes % (Manual) 9 Eosinophils % (Manual) 2 Basophils % (Manual) 2 H Metamyelocytes % 6 Myelocytes % 2 Abs Neuts (Manual) 4.8 Lymphocytes # (Manual) 1.4 Monocytes # (Manual) 0.7 Eosinophils # (Manual) 0.2 Basophils # (Manual) 0.2 Metamyelocytes # 0.5 Myelocytes # 0.2 Nucleated RBCs Smudge Cells Toxic Vacuolation Platelet Estimate NORMAL Plt Morphology Comment NORMAL RBC Morphology NOTED Polychromasia 1+ (0-2) Hypochromasia 1+ (5-14) Macrocytosis 1+ (5-14) Target Cells 1+ (5-14) ESR Anion Gap 12 Estim Creat Clear Calc 68.3 Estimated GFR > 60 POC Glucose Random Glucose 157 H Lactic Acid Lactic Acid Fup @ 2Hr Lactic Acid Fup @ 4Hr 2.3 H* Calcium 8.7 D Total Bilirubin Direct Bilirubin AST ALT Alkaline Phosphatase Ammonia Troponin I High Sens C-Reactive Protein Total Protein Albumin Valproic Acid COVID-19 ([facility]ISANA) COVID-19 Clin Com 07/12/21 11:49 MCV MCH MCHC RDW Plt Count MPV Immature Gran % (Auto) Neut % (Auto) Lymph % (Auto) Evans % (Auto) Eos % (Auto) Baso % (Auto) Lymph # (Auto) Evans # (Auto) Eos # (Auto) Baso # (Auto) Abs Immat Gran (auto) Absolute Neuts (auto) Absolute Nucleated RBC Nucleated RBC % (auto) Neutrophils % (Manual) Band Neutrophils % Lymphocytes % (Manual) Monocytes % (Manual) Eosinophils % (Manual) Basophils % (Manual) Metamyelocytes % Myelocytes % Abs Neuts (Manual) Lymphocytes # (Manual) Monocytes # (Manual) Eosinophils # (Manual) Basophils # (Manual) Metamyelocytes # Myelocytes # Nucleated RBCs Smudge Cells Toxic Vacuolation Platelet Estimate Plt Morphology Comment RBC Morphology Polychromasia Hypochromasia Macrocytosis Target Cells ESR Anion Gap Estim Creat Clear Calc Estimated GFR POC Glucose 126 H Random Glucose Lactic Acid Lactic Acid Fup @ 2Hr Lactic Acid Fup @ 4Hr Calcium Total Bilirubin Direct Bilirubin AST ALT Alkaline Phosphatase Ammonia Troponin I High Sens C-Reactive Protein Total Protein Albumin Valproic Acid COVID-19 ([facility]ISA[facility]) COVID-19 Clin Com Assessment and Plan (1) Severe sepsis: Status: Acute (2) Atrial fibrillation with rapid ventricular response: Status: Acute Assessment and Plan: This is a 75-year-old female with a past medical history of suspected peripheral artery disease, on anticoagulation, hypothyroid, recurrent bacteremia, vascular dementia, type 2 diabetes who presents to the hospital after being sent from outpatient ultrasound for tachycardia. Her workup in the emergency room is concerning for sepsis secondary to non-healing ulcer of the left lower extremity and cellulitis. Severe sepsis due to LLE non-healing wound and cellulitis Meets sepsis criteria with leukocytosis and tachypnea. Also is tachycardic and although in rapid AFib I suspect her rapid AFib is from sepsis. Meets severe features with elevated lactate (6.7). This could be worsened from metformin use, but it has not been this elevated during her last admission when she was also septic. Given sepsis fluid bolus based on ideal body weight -- 62kg. Continue vancomcyin, start zosyn (would cx from would clinic end of last month growing pseudomonas) Seen by vascular surgery, plan for noninvasive arterial testing. Further management based on results Blood cultures pending Encephalopathy Likely metabolic secondary to hypernatremia and sepsis In the setting of underlying dementia Will obtain brain CT Hypernatremia IV fluid Follow BMP SHREYAS Creatinine improved follow renal function A. fib with RVR rates in low 100s will give oral metoprolol 25mg (home dose) and if needed start cardizem gtt DM hold metformin sliding scale Schizoaffective d/o continuse her baseline meds, valproate, aripiprazole, duloxetine, lorazepam and trazodone Hypothyroidism synthroid Hypertension Continue metoprolol Full Code per [facility] on EMR -- to d/w her HCP re: code status DVT prophylaxis-Lovenox Attending physician-Dr. Stallings Quality Stroke Does the patient have a stroke diagnosis?: No VTE Prior VTE?: No VTE Risk Level:: Medical - moderate - high VTE Device Contraindication: Treatment Not Indicated VTE Drug Contraindication: N/A - Med Ordered
--- NOTE | 2021-07-12 14:23 | MHC.CM.PN ---
Attempted to meet with patient. 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 HCP is invoked. Attempted to speak to patient's son/HCP, Anthony, via telephone at [phone]. Left voicemail explainging IMM and sent IMM via ceritifed mail. Anticipate patient will return to [facility] via BLS when medically stable. Patient received [employer] vaccines on 10/21 and 11/11. Continue to monitor for d/c needs.
[2021-07-12] MEDS: dilTIAZem HCL 125 MG in 0.9 % Sodium Chloride 100 ML 10 MG IVCONT (16:29)
[2021-07-12] MEDS: Scopolamine 1.5 MG PATCH.TD.3 EAR-BEHIND (16:35)
--- NOTE | 2021-07-12 16:46 | PC.NURSE ---
pt checked for need of change. No stool noted. diaper changed. repositioned and covered with linens.
--- NOTE | 2021-07-12 17:15 | PC.NURSE ---
pt cbg 121, insulin not given
--- NOTE | 2021-07-12 18:07 | MHC.SL.SWA ---
Speech Pathologist Impression: Risk of Aspiration Oralpharyngeal Dysphagia Risk of Aspiration Due to: Reduced Cognition Dysphasia Diet Status: Upgrade Liquid Consistency and Strategies for Safe Swallow: Liquid Intake Recommendation: [place] Thick Liquid Intake Strategies: Small Sips No Straws Solid Food Consistency: Dietary Recommendations: Pureed (NDD1) Additional Modifications to Solid Foods: Patient was seen by [facility] for dysphagia during previous hospitalization in April-May 2021 when she was admitted for sepsis. At that time, patient was discharged with recommendation for ground/mech altered solids and thin liquids, with pills crushed in puree. Bedside dysphagia evaluation was ordered on 07/12/21 in ED as patient failed nursing swallow screening and coughed on water. PO trials adminsitered. Patient displayed overt s/s of aspiration when drinking thin liquid. Note prolonged oral phase. Delayed swallow and incomplete laryngeal elevation. Patient tolerated thickened liquids. Recommend PUREED (NDD1) solids and NECTAR THICK liquids by spoon sip or CONTROLLED cup sip, with pills CRUSHED in PUREE. NO STRAW. Recommend control cup sip for small bolus size or administer liquids by spoon. Check oral cavity to ensure clearance before presenting more bites. Aspiration precautions apply. Patient requires 1:1 assistance feeding. Oral Medication Intake: Crushed with Puree Compensatory Strategies and Precautions to be Taken for Safe Swallow: Sitting Upright (90 deg) No Straw Liquids from Cup Liquids from Spoon Small Bites and Sips Rate of Ingestion Change Oral Check Supervision While Eating and Drinking for Safe Swallow: Total Assistance Foods to Avoid: NO STRAW Swallowing Recommended Treatments: Compens. Strategy Educat. Recommendation for Speech: Inpatient Speech Therapy Comment: Patient requires 1:1 assistance feeding. Purchase Order Checker Clinican/Clinical Fellow: No Supervisory Statement: I have reviewed and agree with the student/clinical fellow's documentation: N/A Speech Language Pathologist: Jelly Mena M.A., CCC-[facility]
--- NOTE | 2021-07-12 18:21 | PC.NURSE ---
speech therapy has been in to see pt. see speech notes for recommendations.
[2021-07-12 19:09] LABS: Glucose, Whole Blood 121 mg/dL (60-115)
--- NOTE | 2021-07-12 20:11 | PC.NURSE ---
report given to stephanie rn and pt transported with price olson with verify drip with stephanie grayson. pt transported with this rn donny and radha lujan.
[2021-07-12 20:55] LABS: Glucose, Whole Blood 154 mg/dL (60-115)
[2021-07-12] MEDS: Metoprolol Tartrate 25 MG TABLET PO (21:32)
[2021-07-12] MEDS: traZODone HCL 25 MG HALFTAB PO (21:32)
[2021-07-12] MEDS: LORazepam 0.5 MG TABLET PO (21:33)
[2021-07-12] MEDS: Divalproex Sodium 500 MG TABLET.DR PO (21:33)
[2021-07-12] MEDS: Enoxaparin Sodium 40 MG/0.4 ML SYRINGE SUBCUT (21:33)
[2021-07-12] MEDS: Chlorhexidine Gluc Oral Rinse 15 ML MOUTHWASH BUCCAL (21:34)
[2021-07-13] VITALS (8 sets, daily range): BP systolic 119–180; BP diastolic 54–89; PULSE 75–140; RESP 14–20; TEMP 35.7–36.4; O2SAT 93–95; BMI 30.2
[2021-07-13] MEDS: Piperacillin Sodium/Tazobactam 2.25 GM in 0.9 % Sodium Chloride 50 ML IV ×3 (04:15→18:34)
[2021-07-13] MEDS: Levothyroxine Sodium 100 MCG TABLET PO (04:15)
[2021-07-13 06:42] LABS: Hemoglobin 10.5 g/dl (12.0-16.0); Mean Corpuscular HGB Conc 31.8 g/dl (31.0-35.0); Mean Corpuscular Hemoglobin 33.2 pg (27.0-33.0); Mean Corpuscular Volume 104.4 fL (80-98); Mean Platelet Volume 10.6 fL (9.4-12.3); Platelet Count 186 X10*3/uL (160-400); Red Blood Count 3.16 X10*6/uL (4.20-5.50); Red Cell Distribution Width 14.8 % (11.0-16.0); White Blood Count 7.1 X10*3/uL (4.8-10.8)
[2021-07-13 06:48] LABS: Anion Gap 11 (12-20); Blood Urea Nitrogen 27 mg/dL (9-16); Calcium 8.8 mg/dL (8.4-10.2); Carbon Dioxide 29 mmol/L (22-29); Chloride 114 mmol/L (96-108); Creatinine Clr Calc Pharmacy 74.6; Estimated Glomerular Filt Rate > 60; Glucose Random 172 mg/dL (60-115); Potassium 3.4 mmol/L (3.3-5.1); Sodium 151 mmol/L (135-145)
[2021-07-13 07:08] LABS: Vancomycin Trough 12.3 mcg/mL (10.0-20.0)
--- NOTE | 2021-07-13 09:24 | P.PNVS_ITS ---
Subjective Subjective Date of Service: 07/13/21 Patient reports: no new complaints and feels better Interval history: Patient seen and examined. No significant events overnight. Was seen transferred up to [facility] from the emergency room. She appears to be doing relatively better. Now for follow-up regarding nonhealing leg ulcer. Physical Exam Vital Signs: Vital Signs: Last Vital Signs Temp 97.6 F 07/13/21 07:37 Pulse 140 H 07/13/21 07:37 Resp 19 07/13/21 07:37 BP 169/79 H 07/13/21 07:37 Pulse Ox 95 07/13/21 07:37 Body Mass Index 30.2 Const: General: cooperative, healthy appearing and no acute distress Orientation/consciousness: oriented to person, oriented to place and oriented to time HENMT: Head: Yes normal to inspection Neck: Carotids: no bruits Chest: Chest palpation & inspection: normal inspection of the chest Resp: Effort & Inspection: normal respiratory effort and able to speak in complete sentences Auscultation: clear to auscultation bilaterally Cardio: Rate: regular rate Heart sounds: S1 normal heart sound present and S2 normal heart sound present Peripheral pulses: dorsalis pedis present (Bilateral DP signals) GI: Inspection: Yes normal to inspection Skin: General skin exam: no rashes or lesions noted Wounds: wounds noted (Left heel) Neuro: General: oriented to person, oriented to place, oriented to time and CN's II-XI intact bilaterally Extrem: General: Yes normal to inspection, Yes full ROM and Yes no clubbing, cyanosis or edema Psych: Appearance: grossly normal and well kempt Speech and movement: Normal speech and movement present Affect: normal affect Progress Note: A&P Assessment and plan (1) PAD (peripheral artery disease): Status: Acute Assessment and Plan: In short patient has nonhealing lower extremity ulcers. I did review noninvasive arterial testing which did demonstrate there was some stenosis in the right popliteal. Due to her status I would try to manage her as conservatively as possible. If we could treat that heal with antibiotics and should stabilize that would be the most ideal. Would recommend offloading as much as possible. Should that not be possible and infection continues to progress she may be better served with an amputation. She is now on ambulatory and mostly bed-bound. We will see how she progresses over the next few days. Thank you for allowing us to assist in her care. If there are any questions or concerns please do not hesitate to contact us. Fall Risk Details Current Medications: Current Medications Acetaminophen (Acetaminophen 325 Mg Tablet) 650 mg PO Q6H PRN PRN Reason: Pain, Mild (Pain Scale 1-3) Aripiprazole (Aripiprazole 15 Mg Tablet) 15 mg PO DAILY [facility] Last Admin: 07/12/21 12:51 Dose: Not Given Documented by: Aspirin (Aspirin Enteric Coated 81 Mg Tablet.) 81 mg PO DAILY [facility] Last Admin: 07/12/21 12:51 Dose: Not Given Documented by: Atropine Sulfate (Atropine Sulfate 1 % Ophth Minda 2 Ml Bottle) 2 drop SUBLINGUAL Q2H PRN PRN Reason: Secretions Chlorhexidine Gluconate (Chlorhexidine Gluc Oral Rinse 15 Ml Mouthwash) 15 ml BUCCAL BID [facility] Last Admin: 07/12/21 21:34 Dose: 15 ml Documented by: Divalproex Sodium (Divalproex Sodium 500 Mg Tablet.) 500 mg PO BID [facility] Last Admin: 07/12/21 21:33 Dose: 500 mg Documented by: Duloxetine HCl (Duloxetine Hcl 20 Mg Capsule.) 20 mg PO DAILY [facility] Last Admin: 07/12/21 12:51 Dose: Not Given Documented by: Enoxaparin Sodium (Enoxaparin Sodium 40 Mg/0.4 Ml Syringe) 40 mg SUBCUT Q24H [facility] Last Admin: 07/12/21 21:33 Dose: 40 mg Documented by: Piperacillin Sod/Tazobactam (Sod 2.25 gm/ Sodium Chloride) 50 mls @ 100 mls/hr IV Q6H [facility] Last Infusion: 07/13/21 04:46 Dose: Infused Documented by: Diltiazem HCl 125 mg/ Sodium (Chloride) 125 mls @ 0 mls/hr IVCONT .Q0M [facility]; Protocol Last Titration: 07/13/21 04:46 Dose: 5 mg/hr, 5 mls/hr Documented by: Vancomycin HCl 1,250 mg/ (Sodium Chloride) 250 mls @ 166.667 mls/hr IV Q24H [facility] Dextrose (D5w) 1,000 mls @ 80 mls/hr IVCONT .[id number] [facility] Insulin Human Lispro (Insulin Lispro 100 Unit/Ml 3 Ml Vial) 5 unit SUBCUT QIDACHS [facility] Last Admin: 07/12/21 21:35 Dose: Not Given Documented by: Levothyroxine Sodium (Levothyroxine Sodium 100 Mcg Tablet) 100 mcg PO DAILY@0600 [facility] Last Admin: 07/13/21 04:15 Dose: 100 mcg Documented by: Lorazepam (Lorazepam 0.5 Mg Tablet) 0.5 mg PO DAILY@1800 [facility] Last Admin: 07/12/21 21:33 Dose: 0.5 mg Documented by: Metoprolol Tartrate (Metoprolol Tartrate 25 Mg Tablet) 25 mg PO BID [facility]; Protocol Last Admin: 07/12/21 21:32 Dose: 25 mg Documented by: Ondansetron HCl (Ondansetron Hcl 4 Mg/2 Ml Vial) 4 mg IVPUSH Q8H PRN PRN Reason: Nausea and Vomiting Pharmacy Consult (Consult Rx Perform Med Rec) 1 each MISCELLANE ONCE PRN PRN Reason: Consult order Pharmacy Consult (Consult Rx Vancomycin Dosing) 1 each MISCELLANE DAILY PRN PRN Reason: Consult order Polyethylene Glycol (Polyethylene Glycol 3350 17 Gm Powd.Pack) 17 gm PO DAILY [facility] Last Admin: 07/12/21 12:51 Dose: Not Given Documented by: Scopolamine (Scopolamine 1.5 Mg Patch.Td.3) 1.5 mg EAR-BEHIND Q72H [facility] Last Admin: 07/12/21 16:35 Dose: 1.5 mg Documented by: Sodium Chloride (0.9 % Sodium Chloride Flush 3 Ml Syringe) 3 ml IVFLUSH QSHIFT [facility] Last Admin: 07/12/21 21:35 Dose: 3 ml Documented by: Trazodone HCl (Trazodone Hcl 25 Mg Halftab) 25 mg PO BEDTIME [facility] Last Admin: 07/12/21 21:32 Dose: 25 mg Documented by: Time Spent With Patient Time: Total time spent is greater than 50% in coordination of care (as documented) at patient's floor/unit and/or counseling patient: Time with patient: 25 - 35 minutes Procedures Date of Service Date of Service: 07/13/21 Quality Stroke Does the patient have a stroke diagnosis?: No VTE Prior VTE?: No VTE Risk Level:: Medical - moderate - high VTE Device Contraindication: Treatment Not Indicated VTE Drug Contraindication: N/A - Med Ordered
[2021-07-13] MEDS: 0.9 % Sodium Chloride Flush 3 ML SYRINGE IVFLUSH ×2 (09:26→18:42)
[2021-07-13] MEDS: Dextrose 5 % 1,000 ML 80 ML IVCONT (09:26)
[2021-07-13] MEDS: vancomycin HCL 1,250 MG in 0.9 % Sodium Chloride 250 ML 166.67 MG IV (09:27)
[2021-07-13] MEDS: Chlorhexidine Gluc Oral Rinse 15 ML MOUTHWASH BUCCAL ×2 (09:31→20:49)
[2021-07-13] MEDS: Metoprolol Tartrate 25 MG TABLET PO ×2 (09:31→20:58)
[2021-07-13] MEDS: Aspirin Enteric Coated 81 MG TABLET.DR PO (09:31)
[2021-07-13] MEDS: ARIPiprazole 15 MG TABLET PO (09:31)
[2021-07-13] MEDS: polyethylene glycoL 3350 17 GM POWD.PACK PO (09:32)
--- NOTE | 2021-07-13 10:27 | MHC.SL.DTX ---
Pre-Treatment Diet: PUREED (NDD1) solids THIN liquid (no straws) CRUSHED pills in PUREE Changes made to current diet?: Yes Dysphasia Diet Status: Upgrade Liquid Consistency and Strategies: Liquid Intake Recommendation: [place] Thick Compensatory Strategies for Safe Swallow: Small Sips No Straws Compensatory Strategies for Safe Swallow(b): Sitting Upright (90 deg) No Straw Small Bites and Sips Alternate Liquids/Solids Solid Food Consistency: Dietary Recommendations: Pureed (NDD1) Oral Medication Intake: Crushed with Puree Strategies and Precautions to be Taken for Safe Swallow: Compensatory Swallowing Status: Sitting Upright (90 deg) No Straw Small Bites and Sips Alternate Liquids/Solids Supervision While Eating and/Drinking: Total Assistance Foods to Avoid: NO STRAW Swallowing Recommended Treatments: Compens. Strategy Educat. Level of Impact on: Daily activities: Severe Interpersonal interactions: Severe Education: None Employment: None Community: Severe Prognosis for Improvement: Guarded Recommendation for Speech: Inpatient Speech Therapy Comment: Patient requires 1:1 assistance feeding. Frequency/Duration: Date Range for Service Req: Timeline to reassess: Additional Comments: Treatment: Pt was seen for dysphagia treatment. She verbalized that she needed to urinate, though pt with a catheter in place. Education was provided. Pt was found with her breakfast tray at her bedside which contained peach chunks and thin liquids despite SUP[employer]Y CHAIN PLANNER's recommendation for NDD1 pureed solids and nectar thick liquids when evaluated 07/12. Order was changed to reflect diet consistency recommendations. Pt tolerated nectar thick liquids administered by this SUP[employer]Y CHAIN PLANNER via tsp and small cup sips. Pt attempted to self feed though was unable due to UE tremors. Pt tolerated nectar thick liquids with a mildly delayed pharyngeal swallow trigger and no overt s/s aspiration. Pt declined pureed solids. Updated with RN re: recommendations to continue with previously recommended diet consistency of NDD1 PUREED solids and NECTAR THICK liquids. RN was notified that this [employer] CH[employer] updated pt's diet order to reflect the recommended diet consistency. Pt continues to require aspiration precautions and 1:1 assist with all PO intake. SUPPLY CHAIN PLANNER will continue to follow pt. Assessment: Propagator Laborer Clinican/Clinical Fellow: No Supervisory Statement: I have reviewed and agree with the student/clinical fellow's documentation: N/A Speech Language Pathologist: Kelly Rodriguez M.A., [facility]-[employer]
--- NOTE | 2021-07-13 11:31 | PC.NURSE ---
HR currently in the 70's. Liu veras paused at this time. currently on continuous telemetry to monitor HR.
--- NOTE | 2021-07-13 11:34 | HO.PM.IMPN ---
Subjective Subjective Date of Service: 07/13/21 Interval History: Seen and examined this morning Follow-up for nonhealing foot ulcer, encephalopathy Appears more awake and alert, although still difficult to understand; not able to provide any significant history Review of Systems Review of Systems: Yes Unobtainable due to mental condition Physical Exam Vital Signs: Vital Signs: Last Vital Signs Temp 97.3 F 07/13/21 11:32 Pulse 81 07/13/21 11:32 Resp 18 07/13/21 11:32 BP 122/54 L 07/13/21 11:32 Pulse Ox 95 07/13/21 11:32 Body Mass Index 30.2 Const: Other: awake, confused Dry mucous membranes General: awake Nutritional Appearance: well nourished HENMT: Head: Yes normocephalic and Yes atraumatic Eyes: Sclerae: sclerae normal Pupils: Equal, round and reactive pupils present Resp: Effort & Inspection: normal respiratory effort and no respiratory distress GI: Palpation (GI): Soft to palpation and nontender Skin: Other: Neuro: Cranial nerves: Yes CN's II-XII intact bilaterally, Yes Equal, round and reactive pupils present and Yes Bilaterally intact EOM present Objective Data Active Medications Acetaminophen (Acetaminophen 325 Mg Tablet) 650 mg PO Q6H PRN PRN Reason: Pain, Mild (Pain Scale 1-3) Aripiprazole (Aripiprazole 15 Mg Tablet) 15 mg PO DAILY [facility] Last Admin: 07/13/21 09:31 Dose: 15 mg Documented by: SHAYNA Aspirin (Aspirin Enteric Coated 81 Mg Tablet.) 81 mg PO DAILY [facility] Last Admin: 07/13/21 09:31 Dose: 81 mg Documented by: SHAYNA Atropine Sulfate (Atropine Sulfate 1 % Oph Minda 2 Ml Bottle) 2 drop SUBLINGUAL Q2H PRN PRN Reason: Secretions Chlorhexidine Gluconate (Chlorhexidine Gluc Oral Rinse 15 Ml Mouthwash) 15 ml BUCCAL BID [facility] Last Admin: 07/13/21 09:31 Dose: 15 ml Documented by: SHAYNA Divalproex Sodium (Divalproex Sodium 500 Mg Tablet.) 500 mg PO BID [facility] Last Admin: 07/13/21 11:26 Dose: Not Given Documented by: SHAYNA Non-Admin Reason: cant crussebastian. PA aware Duloxetine HCl (Duloxetine Hcl 20 Mg Capsule.) 20 mg PO DAILY [facility] Last Admin: 07/13/21 11:26 Dose: Not Given Documented by: SHAYNA Non-Admin Reason: cant ralph. ARMIDA gauthier Enoxaparin Sodium (Enoxaparin Sodium 40 Mg/0.4 Ml Syringe) 40 mg SUBCUT Q24H [facility] Last Admin: 07/12/21 21:33 Dose: 40 mg Documented by: MARGOTH Diltiazem HCl 125 mg/ Sodium (Chloride) 125 mls @ 0 mls/hr IVCONT .Q0M [facility]; Protocol Last Titration: 07/13/21 11:30 Dose: 0 mg/hr, 0 mls/hr Documented by: SHAYNA Vancomycin HCl 1,250 mg/ (Sodium Chloride) 250 mls @ 166.667 mls/hr IV Q24H [facility] Last Admin: 07/13/21 09:27 Dose: 166.67 mls/hr Documented by: SHAYNA Dextrose (D5w) 1,000 mls @ 80 mls/hr IVCONT .[id number] [facility] Last Admin: 07/13/21 09:26 Dose: 80 mls/hr Documented by: SHAYNA Piperacillin Sod/Tazobactam (Sod 2.25 gm/ Sodium Chloride) 50 mls @ 100 mls/hr IV Q6H [facility] Insulin Human Lispro (Insulin Lispro 100 Unit/Ml 3 Ml Vial) 5 unit SUBCUT QIDACHS [facility] Last Admin: 07/13/21 09:14 Dose: Not Given Documented by: SHAYNA Non-Admin Reason: decreased po Levothyroxine Sodium (Levothyroxine Sodium 100 Mcg Tablet) 100 mcg PO DAILY@0600 [facility] Last Admin: 07/13/21 04:15 Dose: 100 mcg Documented by: ROLY Lorazepam (Lorazepam 0.5 Mg Tablet) 0.5 mg PO DAILY@1800 [facility] Last Admin: 07/12/21 21:33 Dose: 0.5 mg Documented by: MARGOTH Metoprolol Tartrate (Metoprolol Tartrate 25 Mg Tablet) 25 mg PO BID [facility]; Protocol Last Admin: 07/13/21 09:31 Dose: 25 mg Documented by: SHAYNA Ondansetron HCl (Ondansetron Hcl 4 Mg/2 Ml Vial) 4 mg IVPUSH Q8H PRN PRN Reason: Nausea and Vomiting Pharmacy Consult (Consult Rx Perform Med Rec) 1 each MISCELLANE ONCE PRN PRN Reason: Consult order Pharmacy Consult (Consult Rx Vancomycin Dosing) 1 each MISCELLANE DAILY PRN PRN Reason: Consult order Polyethylene Glycol (Polyethylene Glycol 3350 17 Gm Powd.Pack) 17 gm PO DAILY [facility] Last Admin: 07/13/21 09:32 Dose: 17 gm Documented by: SHAYNA Scopolamine (Scopolamine 1.5 Mg Patch.Td.3) 1.5 mg EAR-BEHIND Q72H [facility] Last Admin: 07/12/21 16:35 Dose: 1.5 mg Documented by: ALLY Sodium Chloride (0.9 % Sodium Chloride Flush 3 Ml Syringe) 3 ml IVFLUSH QSHIFT [facility] Last Admin: 07/13/21 09:26 Dose: 3 ml Documented by: SHAYNA Trazodone HCl (Trazodone Hcl 25 Mg Halftab) 25 mg PO BEDTIME [facility] Last Admin: 07/12/21 21:32 Dose: 25 mg Documented by: MARGOTH Labs CBC & Chem 7: 07/13/21 06:22 07/13/21 06:22 Labs: Laboratory Results - last 24 hr 07/12/21 07/12/21 07/12/21 11:49 16:52 20:42 MCV MCH MCHC RDW Plt Count MPV Absolute Nucleated RBC Nucleated RBC % (auto) Anion Gap Estim Creat Clear Calc Estimated GFR POC Glucose 126 H 121 H 154 H Random Glucose Calcium Vancomycin Trough 07/13/21 07/13/21 07/13/21 06:22 06:22 06:22 MCV 104.4 H MCH 33.2 H MCHC 31.8 RDW 14.8 Plt Count 186 MPV 10.6 Absolute Nucleated RBC 0.000 Nucleated RBC % (auto) 0.0 Anion Gap 11 L Estim Creat Clear Calc 74.6 Estimated GFR > 60 POC Glucose Random Glucose 172 H Calcium 8.8 Vancomycin Trough 12.3 Microbiology Microbiology Results: Microbiology 07/11/21 14:32 Blood Culture - Preliminary Blood - Venous No growth after 24 hours. 07/11/21 14:34 Blood Culture - Preliminary Blood - Venous No growth after 24 hours. Assessment and Plan (1) Severe sepsis: Status: Acute (2) Atrial fibrillation with rapid ventricular response: Status: Acute (3) PAD (peripheral artery disease): Status: Acute Assessment and Plan: This is a 75-year-old female with a past medical history of suspected peripheral artery disease, on anticoagulation, hypothyroid, recurrent bacteremia, vascular dementia, type 2 diabetes who presents to the hospital after being sent from outpatient ultrasound for tachycardia. Her workup in the emergency room is concerning for sepsis secondary to non-healing ulcer of the left lower extremity and cellulitis. Severe sepsis due to LLE non-healing wound and cellulitis Meets sepsis criteria with leukocytosis and tachypnea. Also is tachycardic and although in rapid AFib I suspect her rapid AFib is from sepsis. Meets severe features with elevated lactate (6.7). This could be worsened from metformin use, but it has not been this elevated during her last admission when she was also septic. Given sepsis fluid bolus based on ideal body weight -- 62kg. Continue vancomcyin, start zosyn (would cx from would clinic end of last month growing pseudomonas) Seen by vascular surgery, noninvasive arterial testing showing severe stenosis right popliteal artery - surgery recommends conservative management for now Blood cultures negative Encephalopathy Likely metabolic secondary to hypernatremia and sepsis In the setting of underlying dementia Brain CT shows no acute changes Hypernatremia IV fluid Will repeat BMP this afternoon dysphagia seen by speech rec pureed solids and nectar thick liquids with pills crushed in puree Requires one-to-one assistance with feeding SHREYAS Creatinine improved follow renal function A. fib with RVR HR improving continue cardizem gtt for now DM hold metformin sliding scale Schizoaffective d/o continue her baseline meds, valproate, aripiprazole, lorazepam and trazodone Duloxetine can be crushed and will be placed on hold Hypothyroidism synthroid Hypertension Continue metoprolol Full Code per [facility] on EMR DVT prophylaxis-Lovenox Attending physician-Dr. Stallings Quality Stroke Does the patient have a stroke diagnosis?: No VTE Prior VTE?: No VTE Risk Level:: Medical - moderate - high VTE Device Contraindication: Treatment Not Indicated VTE Drug Contraindication: N/A - Med Ordered
--- NOTE | 2021-07-13 11:40 | PC.NURSE ---
Addendum entered by Neda Lockett RN 07/16/21 10:57: No stage 3 pressure ulcer, stage 2 only bilateral buttocks. Original Note: Skin/wound assessment completed today. On admission patient has stage 3 and stage 2 pressure sore to bilateral buttocks- Triad applied covered with foam. Patient has an unstageable pressure wound to left heel which is chronic and non-healing. Triad applied covered with gauze and roll gauze. Patient also has redness to perineal area and excoriation to bilateral groin and breasts. EPC cream applied to alec area, Inter dry applied to bilateral groin and bilateral breast. No other skin issues noted at this time. Pictures have been taken and placed in paper chart and also downloaded to chart.
--- NOTE | 2021-07-13 11:50 | MHC.CM.PN ---
Per ROUNDS discussion, Patient is not yet medically cleared for dc (IV Diltiazem Drip,IV Zosyn, IV Vanco). Returning to LTC at [facility] is the goal for dc and CM will continue to follow.
[2021-07-13] MEDS: Divalproex Sodium Sprinkles 125 MG CAP.DR.SPR 500 MG PO (13:39)
[2021-07-13 16:18] LABS: Glucose, Whole Blood 148 mg/dL (60-115)
[2021-07-13 16:26] LABS: Anion Gap 17 (12-20); Blood Urea Nitrogen 25 mg/dL (9-16); Calcium 8.4 mg/dL (8.4-10.2); Carbon Dioxide 22 mmol/L (22-29); Chloride 118 mmol/L (96-108); Estimated Glomerular Filt Rate > 60; Glucose Random 175 mg/dL (60-115); Potassium 4.1 mmol/L (3.3-5.1); Sodium 153 mmol/L (135-145)
[2021-07-13] MEDS: Enoxaparin Sodium 40 MG/0.4 ML SYRINGE SUBCUT (18:42)
[2021-07-13 20:19] LABS: Glucose, Whole Blood 192 mg/dL (60-115)
[2021-07-13] MEDS: traZODone HCL 25 MG HALFTAB PO (20:49)
[2021-07-13] MEDS: Insulin Lispro 100 UNIT/ML 3 ML VIAL SUBCUT (20:49)
[2021-07-14] VITALS (7 sets, daily range): BP systolic 98–121; BP diastolic 52–78; PULSE 69–81; RESP 17–20; TEMP 36.1–36.9; O2SAT 92–100
[2021-07-14] MEDS: Piperacillin Sodium/Tazobactam 2.25 GM in 0.9 % Sodium Chloride 50 ML IV ×5 (00:35→22:36)
[2021-07-14] MEDS: Dextrose 5 % 1,000 ML 80 ML IVCONT ×2 (00:35→12:44)
[2021-07-14 07:01] LABS: Hematocrit 33.8 % (37-47); Hemoglobin 10.5 g/dl (12.0-16.0); Mean Corpuscular HGB Conc 31.1 g/dl (31.0-35.0); Mean Corpuscular Hemoglobin 32.5 pg (27.0-33.0); Mean Corpuscular Volume 104.6 fL (80-98); Mean Platelet Volume 10.6 fL (9.4-12.3); Platelet Count 162 X10*3/uL (160-400); Red Blood Count 3.23 X10*6/uL (4.20-5.50); Red Cell Distribution Width 14.8 % (11.0-16.0); White Blood Count 7.1 X10*3/uL (4.8-10.8)
[2021-07-14 07:16] LABS: Anion Gap 14 (12-20); Blood Urea Nitrogen 20 mg/dL (9-16); Calcium 7.9 mg/dL (8.4-10.2); Carbon Dioxide 21 mmol/L (22-29); Chloride 114 mmol/L (96-108); Creatinine Clr Calc Pharmacy 73.6; Estimated Glomerular Filt Rate > 60; Glucose Random 148 mg/dL (60-115); Potassium 3.3 mmol/L (3.3-5.1); Sodium 146 mmol/L (135-145)
[2021-07-14 08:03] LABS: Glucose, Whole Blood 138 mg/dL (60-115)
[2021-07-14] MEDS: Aspirin Enteric Coated 81 MG TABLET.DR PO (09:34)
[2021-07-14] MEDS: Chlorhexidine Gluc Oral Rinse 15 ML MOUTHWASH BUCCAL ×2 (09:34→22:36)
[2021-07-14] MEDS: ARIPiprazole 15 MG TABLET PO (09:34)
[2021-07-14] MEDS: Metoprolol Tartrate 25 MG TABLET PO (09:34)
[2021-07-14] MEDS: Insulin Lispro 100 UNIT/ML 3 ML VIAL SUBCUT ×3 (09:35→16:20)
[2021-07-14] MEDS: polyethylene glycoL 3350 17 GM POWD.PACK PO (09:35)
[2021-07-14] MEDS: vancomycin HCL 1,250 MG in 0.9 % Sodium Chloride 250 ML 166.67 MG IV (09:36)
--- NOTE | 2021-07-14 10:55 | P.PNIM_ITS ---
Subjective Subjective Date of Service: 07/14/21 <ARMIDA Hawley - Last Filed: 07/14/21 14:59> 07/14/21 <Hamlet Guerrier MD - Last Filed: 07/14/21 16:20> Interval History: Seen and examined this morning Follow-up for left foot nonhealing wound, encephalopathy, hypernatremia Sleepy but more conversant this morning Pascal found to be pulled out, Is&Os not accurate <ARMIDA Hawley - Last Filed: 07/14/21 14:59> Review of Systems Review of Systems: Yes Unobtainable due to mental condition and Unobtainable due to mental status <ARMIDA Hawley Last Filed: 07/14/21 14:59> Physical Exam Vital Signs: Vital Signs: Last Vital Signs Temp 98.4 F 07/14/21 08:00 Pulse 79 07/14/21 08:00 Resp 17 07/14/21 08:00 BP 120/70 07/14/21 09:34 Pulse Ox 99 07/14/21 08:00 Body Mass Index 30.2 <ARMIDA Hawley - Last Filed: 07/14/21 14:59> Const: Other: sleepy but arousable, seems less confused Dry mucous membranes <ARMIDA Hawley - Last Filed: 07/14/21 14:59> General: no acute distress and awake <ARMIDA Hawley - Last Filed: 07/14/21 14:59> Nutritional Appearance: well nourished <ARMIDA Hawley - Last Filed: 07/14/21 14:59> HENMT: Head: Yes normocephalic and Yes atraumatic <ARMIDA Hawley - Last Filed: 07/14/21 14:59> Eyes: Sclerae: sclerae normal <ARMIDA Hawley Last Filed: 07/14/21 14:59> Pupils: Equal, round and reactive pupils present <ARMIDA Hawley Last Filed: 07/14/21 14:59> Resp: Effort & Inspection: normal respiratory effort and no respiratory distress <ARMIDA Hawley Last Filed: 07/14/21 14:59> GI: Palpation (GI): Soft to palpation and nontender <ARMIDA Hawley - Last Filed: 07/14/21 14:59> Skin: Other: <ARMIDA Hawley - Last Filed: 07/14/21 14:59> Neuro: Cranial nerves: Yes CN's II-XII intact bilaterally, Yes Equal, round and reactive pupils present and Yes Bilaterally intact EOM present <ARMIDA Hawley - Last Filed: 07/14/21 14:59> Extrem: Other: heel protectors in place; leg edema <ARMIDA Hawley - Last Filed: 07/14/21 14:59> Objective Data Active Medications Acetaminophen (Acetaminophen 325 Mg Tablet) 650 mg PO Q6H PRN PRN Reason: Pain, Mild (Pain Scale 1-3) Aripiprazole (Aripiprazole 15 Mg Tablet) 15 mg PO DAILY [facility] Last Admin: 07/14/21 09:34 Dose: 15 mg Documented by: ELIEL Aspirin (Aspirin Enteric Coated 81 Mg Tablet.) 81 mg PO DAILY [facility] Last Admin: 07/14/21 09:34 Dose: 81 mg Documented by: ELIEL Atropine Sulfate (Atropine Sulfate 1 % Ophth Minda 2 Ml Bottle) 2 drop SUBLINGUAL Q2H PRN PRN Reason: Secretions Chlorhexidine Gluconate (Chlorhexidine Gluc Oral Rinse 15 Ml Mouthwash) 15 ml BUCCAL BID [facility] Last Admin: 07/14/21 09:34 Dose: 15 ml Documented by: ELIEL Dextrose (Dextrose 50 % 25 Gm/50 Ml Vial) 25 gm IVPUSH Q15M PRN; Protocol PRN Reason: per Hypoglycemia Standing Ord. Divalproex Sodium (Divalproex Sodium Sprinkles 125 Mg Cap.) 500 mg PO BID [facility] Last Admin: 07/13/21 21:08 Dose: Not Given Documented by: IRIS Non-Admin Reason: Can not take whole Duloxetine HCl (Duloxetine Hcl 20 Mg Capsule.) 20 mg PO DAILY [facility] Last Admin: 07/13/21 11:26 Dose: Not Given Documented by: SHAYNA Non-Admin Reason: cant crush. ARMIDA aware Enoxaparin Sodium (Enoxaparin Sodium 40 Mg/0.4 Ml Syringe) 40 mg SUBCUT Q24H [facility] Last Admin: 07/13/21 18:42 Dose: 40 mg Documented by: IRIS Glucose (Glucose Gel 15 Gm Gel..Gram.) 15 gm PO Q15M PRN; Protocol PRN Reason: per Hypoglycemia Standing Ord. Diltiazem HCl 125 mg/ Sodium (Chloride) 125 mls @ 0 mls/hr IVCONT .Q0M [facility]; Protocol Last Titration: 07/13/21 11:30 Dose: 0 mg/hr, 0 mls/hr Documented by: SHAYNA Vancomycin HCl 1,250 mg/ (Sodium Chloride) 250 mls @ 166.667 mls/hr IV Q24H [facility] Last Admin: 07/14/21 09:36 Dose: 166.67 mls/hr Documented by: ELIEL Dextrose (D5w) 1,000 mls @ 100 mls/hr IVCONT .Q10H [facility] Last Admin: 07/14/21 00:35 Dose: 80 mls/hr Documented by: JUAN DANIEL Piperacillin Sod/Tazobactam (Sod 2.25 gm/ Sodium Chloride) 50 mls @ 100 mls/hr IV Q6H [facility] Last Infusion: 07/14/21 06:23 Dose: 0 mls/hr Documented by: JUAN DANIEL Insulin Human Lispro (Insulin Lispro 100 Unit/Ml 3 Ml Vial) 5 unit SUBCUT QIDACHS [facility] Last Admin: 07/14/21 09:35 Dose: 5 unit Documented by: ELIEL Insulin Human Lispro (Insulin Lispro 100 Unit/Ml 3 Ml Vial) 0 unit SUBCUT QIDACHS [facility]; Protocol Last Admin: 07/14/21 08:04 Dose: Not Given Documented by: ELIEL Non-Admin Reason: No Insulin Coverage Levothyroxine Sodium (Levothyroxine Sodium 100 Mcg Tablet) 100 mcg PO DAILY@0600 [facility] Last Admin: 07/14/21 05:46 Dose: Not Given Documented by: JUAN DANIEL Non-Admin Reason: pt too lethargic Lorazepam (Lorazepam 0.5 Mg Tablet) 0.5 mg PO DAILY@1800 [facility] Last Admin: 07/13/21 18:42 Dose: Not Given Documented by: IRIS Non-Admin Reason: Patient Asleep Metoprolol Tartrate (Metoprolol Tartrate 25 Mg Tablet) 25 mg PO BID [facility]; Protocol Last Admin: 07/14/21 09:34 Dose: 25 mg Documented by: ELIEL Ondansetron HCl (Ondansetron Hcl 4 Mg/2 Ml Vial) 4 mg IVPUSH Q8H PRN PRN Reason: Nausea and Vomiting Pharmacy Consult (Consult Rx Perform Med Rec) 1 each MISCELLANE ONCE PRN PRN Reason: Consult order Pharmacy Consult (Consult Rx Vancomycin Dosing) 1 each MISCELLANE DAILY PRN PRN Reason: Consult order Polyethylene Glycol (Polyethylene Glycol 3350 17 Gm Powd.Pack) 17 gm PO DAILY [facility] Last Admin: 07/14/21 09:35 Dose: 17 gm Documented by: ELIEL Scopolamine (Scopolamine 1.5 Mg Patch.Td.3) 1.5 mg EAR-BEHIND Q72H [facility] Last Admin: 07/12/21 16:35 Dose: 1.5 mg Documented by: ALLY Sodium Chloride (0.9 % Sodium Chloride Flush 3 Ml Syringe) 3 ml IVFLUSH QSHIFT [facility] Last Admin: 07/14/21 09:41 Dose: Not Given Documented by: ELIEL Non-Admin Reason: IV Running Trazodone HCl (Trazodone Hcl 25 Mg Halftab) 25 mg PO BEDTIME [facility] Last Admin: 07/13/21 20:49 Dose: 25 mg Documented by: IRIS <ARMIDA Hawley - Last Filed: 07/14/21 14:59> Labs CBC & Chem 7: : 07/14/21 06:46 07/14/21 06:46 <ARMIDA Hawley - Last Filed: 07/14/21 14:59> Labs: Laboratory Results - last 24 hr 07/13/21 07/13/21 07/13/21 15:44 16:06 20:08 MCV MCH MCHC RDW Plt Count MPV Absolute Nucleated RBC Nucleated RBC % (auto) Anion Gap 17 Estim Creat Clear Calc 78.0 Estimated GFR > 60 POC Glucose 148 H 192 H Random Glucose 175 H Calcium 8.4 07/14/21 07/14/21 07/14/21 06:46 06:46 07:58 MCV 104.6 H MCH 32.5 MCHC 31.1 RDW 14.8 Plt Count 162 MPV 10.6 Absolute Nucleated RBC 0.000 Nucleated RBC % (auto) 0.0 Anion Gap 14 Estim Creat Clear Calc 73.6 Estimated GFR > 60 POC Glucose 138 H Random Glucose 148 H Calcium 7.9 L <ARMIDA Hawley - Last Filed: 07/14/21 14:59> Microbiology Microbiology Results: Microbiology 07/11/21 14:32 Blood Culture - Preliminary Blood - Venous No growth after 48 hours. 07/11/21 14:34 Blood Culture - Preliminary Blood - Venous No growth after 48 hours. <ARMIDA Hawley - Last Filed: 07/14/21 14:59> Assessment and Plan (1) Severe sepsis: Status: Acute <ARMIDA Hawley - Last Filed: 07/14/21 14:59> (2) Ulcer of left heel: Status: Acute <ARMIDA Hawley - Last Filed: 07/14/21 14:59> (3) Acidosis, lactic: Status: Acute <ARMIDA Hawley - Last Filed: 07/14/21 14:59> (4) Atrial fibrillation with rapid ventricular response: Status: Acute <ARMIDA Hawley - Last Filed: 07/14/21 14:59> (5) PAD (peripheral artery disease): Status: Acute <ARMIDA Hawley - Last Filed: 07/14/21 14:59> (6) Encephalopathy: Status: Acute <ARMIDA Hawley - Last Filed: 07/14/21 14:59> Assessment and Plan: This is a 75-year-old female with a past medical history of suspected peripheral artery disease, on anticoagulation, hypothyroid, recurrent bacteremia, vascular dementia, type 2 diabetes who presents to the hospital after being sent from outpatient ultrasound for tachycardia. Her workup in the emergency room is concerning for sepsis secondary to non-healing ulcer of the left lower extremity and cellulitis. Severe sepsis due to LLE non-healing wound and cellulitis Met sepsis criteria with leukocytosis and tachypnea. Also is tachycardic and although in rapid AFib I suspect her rapid AFib is from sepsis. Had severe features with elevated lactate (6.7). This could be worsened from me tformin use, but it has not been this elevated during her last admission when she was also septic. Given sepsis fluid bolus based on ideal body weight - 62kg. LLE non-healing wound r/t underlying diabetes and PVD Continue vancomcyin, zosyn (would cx from would clinic end of last month growing pseudomonas) started 07/11 Seen by vascular surgery, noninvasive arterial testing showing severe stenosis right popliteal artery - surgery recommends conservative management for now; may eventually need amputation Blood cultures negative to date MRI done to eval for osteomyelitis, report pending Encephalopathy Likely metabolic secondary to hypernatremia and sepsis In the setting of underlying dementia Brain CT shows no acute changes Hypernatremia Improving, sodium down to 146 Continue IV fluid Follow BNP A. fib with RVR HR improving continue home dose of metoprolol wean cardizem drip dysphagia seen by speech rec pureed solids and nectar thick liquids with pills crushed in puree Requires one-to-one assistance with feeding SHREYAS. Resolved. Creatinine improved follow renal function DM hold metformin sliding scale Schizoaffective d/o continue her baseline meds, valproate, aripiprazole, lorazepam and trazodone Duloxetine can't be crushed and will be placed on hold Hypothyroidism synthroid Hypertension Continue metoprolol Full Code per JULES on EMR DVT prophylaxis-Lovenox Attending physician-Dr. Guerrier <ARMIDA Hawley - Last Filed: 07/14/21 14:59> Quality Stroke Does the patient have a stroke diagnosis?: No <ARMIDA Hawley - Last Filed: 07/14/21 14:59> VTE Prior VTE?: No <ARMIDA Hawley - Last Filed: 07/14/21 14:59> VTE Risk Level:: Medical - moderate - high <ARMIDA Hawley - Last Filed: 07/14/21 14:59> VTE Device Contraindication: Treatment Not Indicated <ARMIDA Hawley - Last Filed: 07/14/21 14:59> VTE Drug Contraindication: N/A - Med Ordered <ARMIDA Hawley - Last Filed: 07/14/21 14:59>
[2021-07-14 11:47] LABS: Glucose, Whole Blood 94 mg/dL (60-115)
[2021-07-14 15:54] LABS: Glucose, Whole Blood 231 mg/dL (60-115)
[2021-07-14] MEDS: Enoxaparin Sodium 40 MG/0.4 ML SYRINGE SUBCUT (18:10)
[2021-07-14] MEDS: LORazepam 0.5 MG TABLET PO (18:10)
[2021-07-14 21:14] LABS: Glucose, Whole Blood 114 mg/dL (60-115)
[2021-07-14] MEDS: Divalproex Sodium Sprinkles 125 MG CAP.DR.SPR 500 MG PO (22:36)
[2021-07-14] MEDS: traZODone HCL 25 MG HALFTAB PO (22:37)
[2021-07-14] MEDS: 0.9 % Sodium Chloride Flush 3 ML SYRINGE IVFLUSH (22:37)
[2021-07-15] VITALS (9 sets, daily range): BP systolic 93–148; BP diastolic 52–71; PULSE 81–154; RESP 16–19; TEMP 36.1–36.8; O2SAT 92–100
[2021-07-15] MEDS: Dextrose 5 % 1,000 ML 100 ML IVCONT ×2 (03:55→10:46)
[2021-07-15] MEDS: Levothyroxine Sodium 100 MCG TABLET PO (05:46)
[2021-07-15] MEDS: Piperacillin Sodium/Tazobactam 2.25 GM in 0.9 % Sodium Chloride 50 ML IV ×4 (05:46→23:37)
[2021-07-15] MEDS: Insulin Lispro 100 UNIT/ML 3 ML VIAL SUBCUT ×4 (07:40→16:46)
[2021-07-15 07:57] LABS: Vancomycin Trough 17.5 mcg/mL (10.0-20.0)
[2021-07-15 08:06] LABS: Glucose, Whole Blood 140 mg/dL (60-115)
[2021-07-15 08:07] LABS: Anion Gap 16 (12-20); Blood Urea Nitrogen 17 mg/dL (9-16); Calcium 7.4 mg/dL (8.4-10.2); Carbon Dioxide 20 mmol/L (22-29); Chloride 108 mmol/L (96-108); Creatinine Clr Calc Pharmacy 76.8; Estimated Glomerular Filt Rate > 60; Glucose Random 133 mg/dL (60-115); Potassium 4.4 mmol/L (3.3-5.1); Sodium 140 mmol/L (135-145)
[2021-07-15] MEDS: Divalproex Sodium Sprinkles 125 MG CAP.DR.SPR 500 MG PO ×2 (10:46→21:11)
[2021-07-15] MEDS: Chlorhexidine Gluc Oral Rinse 15 ML MOUTHWASH BUCCAL (10:46)
[2021-07-15] MEDS: vancomycin HCL 1,000 MG in 0.9 % Sodium Chloride 250 ML 270 MG IV (10:47)
[2021-07-15] MEDS: Aspirin Enteric Coated 81 MG TABLET.DR PO (11:08)
[2021-07-15] MEDS: ARIPiprazole 15 MG TABLET PO (11:09)
[2021-07-15 11:17] LABS: Glucose, Whole Blood 196 mg/dL (60-115)
--- NOTE | 2021-07-15 12:59 | P.PNIM_ITS ---
Subjective Subjective Date of Service: 07/15/21 <ARMIDA Hawley - Last Filed: 07/15/21 13:52> 07/15/21 <Hamlet Guerrier MD - Last Filed: 07/15/21 18:30> Interval History: Seen and examined this morning Follow-up for osteomyelitis, sepsis, hypernatremia No overnight events Much improved this morning, much more awake and alert Denies any specific complaints at this time <ARMIDA Hawley - Last Filed: 07/15/21 13:52> Review of Systems Review of Systems: Yes all other systems are reviewed and are negative <ARMIDA Hawley - Last Filed: 07/15/21 13:52> Cardiovascular Cardiovascular: Denies chest pain <ARMIDA Hawley Last Filed: 07/15/21 13:52> Gastrointestinal Gastrointestinal: Denies abdominal pain <ARMIDA Hawley Last Filed: 07/15/21 13:52> Physical Exam Vital Signs: Vital Signs: Last Vital Signs Temp 97.1 F 07/15/21 12:00 Pulse 82 07/15/21 12:00 Resp 19 07/15/21 12:00 BP 116/69 07/15/21 12:00 Pulse Ox 99 07/15/21 12:00 Body Mass Index 30.2 <ARMIDA Hawley Last Filed: 07/15/21 13:52> Const: Other: Awake and alert this morning Taling more Dry mucous membranes <ARMIDA Hawley Last Filed: 07/15/21 13:52> General: no acute distress and awake <ARMIDA Hawley - Last Filed: 07/15/21 13:52> Nutritional Appearance: well nourished <ARMIDA Hawley Last Filed: 07/15/21 13:52> HENMT: Head: Yes normocephalic and Yes atraumatic <ARMIDA Hawley Last Filed: 07/15/21 13:52> Eyes: Sclerae: sclerae normal <ARMIDA Hawley Last Filed: 07/15/21 13:52> Pupils: Equal, round and reactive pupils present <ARMIDA Hawley Last Filed: 07/15/21 13:52> Resp: Effort & Inspection: normal respiratory effort and no respiratory distress <ARMIDA Hawley Last Filed: 07/15/21 13:52> Cardio: Rate: regular rate <ARMIDA Hawley Last Filed: 07/15/21 13:52> Heart sounds: S1 normal heart sound present and S2 normal heart sound present <ARMIDA Hawley Last Filed: 07/15/21 13:52> GI: Palpation (GI): Soft to palpation and nontender <ARMIDA Hawley Last Filed: 07/15/21 13:52> Skin: Other: left heel wound wrapped in clean dressing; coccyx wound unchanged. macerated skin upper thighs <ARMIDA Hawley Last Filed: 07/15/21 13:52> Neuro: Cranial nerves: Yes CN's II-XII intact bilaterally, Yes Equal, round and reactive pupils present and Yes Bilaterally intact EOM present <ARMIDA Hawley Last Filed: 07/15/21 13:52> Extrem: Other: b/l heel protectors in place; leg edema <ARMIDA Hawley Last Filed: 07/15/21 13:52> Objective Data Active Medications Acetaminophen (Acetaminophen 325 Mg Tablet) 650 mg PO Q6H PRN PRN Reason: Pain, Mild (Pain Scale 1-3) Aripiprazole (Aripiprazole 15 Mg Tablet) 15 mg PO DAILY [facility] Last Admin: 07/15/21 11:09 Dose: 15 mg Documented by: ELIEL Aspirin (Aspirin Enteric Coated 81 Mg Tablet.) 81 mg PO DAILY [facility] Last Admin: 07/15/21 11:08 Dose: 81 mg Documented by: ELIEL Atropine Sulfate (Atropine Sulfate 1 % Ophth Minda 2 Ml Bottle) 2 drop SUBLINGUAL Q2H PRN PRN Reason: Secretions Chlorhexidine Gluconate (Chlorhexidine Gluc Oral Rinse 15 Ml Mouthwash) 15 ml BUCCAL BID [facility] Last Admin: 07/15/21 10:46 Dose: 15 ml Documented by: ELIEL Dextrose (Dextrose 50 % 25 Gm/50 Ml Vial) 25 gm IVPUSH Q15M PRN; Protocol PRN Reason: per Hypoglycemia Standing Ord. Divalproex Sodium (Divalproex Sodium Sprinkles 125 Mg Cap) 500 mg PO BID [facility] Last Admin: 07/15/21 10:46 Dose: 500 mg Documented by: ELIEL Duloxetine HCl (Duloxetine Hcl 20 Mg Tessa.) 20 mg PO DAILY [facility] Last Admin: 07/13/21 11:26 Dose: Not Given Documented by: SHAYNA Non-Admin Reason: cant crush. PA aware Enoxaparin Sodium (Enoxaparin Sodium 40 Mg/0.4 Ml Syringe) 40 mg SUBCUT Q24H [facility] Last Admin: 07/14/21 18:10 Dose: 40 mg Documented by: ELIEL Glucose (Glucose Gel 15 Gm Gel..Gram.) 15 gm PO Q15M PRN; Protocol PRN Reason: per Hypoglycemia Standing Ord. Dextrose (D5w) 1,000 mls @ 100 mls/hr IVCONT .Q10H [facility] Last Admin: 07/15/21 10:46 Dose: 100 mls/hr Documented by: ELIEL Piperacillin Sod/Tazobactam (Sod 2.25 gm/ Sodium Chloride) 50 mls @ 100 mls/hr IV Q6H [facility] Last Infusion: 07/15/21 12:04 Dose: 0 mls/hr Documented by: ELIEL Insulin Human Lispro (Insulin Lispro 100 Unit/Ml 3 Ml Vial) 5 unit SUBCUT QIDACHS [facility] Last Admin: 07/15/21 11:12 Dose: 5 unit Documented by: ELIEL Insulin Human Lispro (Insulin Lispro 100 Unit/Ml 3 Ml Vial) 0 unit SUBCUT QIDACHS [facility]; Protocol Last Admin: 07/15/21 11:12 Dose: 2 unit Documented by: ELIEL Levothyroxine Sodium (Levothyroxine Sodium 100 Mcg Tablet) 100 mcg PO DAILY@0600 [facility] Last Admin: 07/15/21 05:46 Dose: 100 mcg Documented by: ANTJUANCARLOS Lorazepam (Lorazepam 0.5 Mg Tablet) 0.5 mg PO DAILY@1800 [facility] Last Admin: 07/14/21 18:10 Dose: 0.5 mg Documented by: ELIEL Metoprolol Tartrate (Metoprolol Tartrate 25 Mg Tablet) 25 mg PO BID [facility]; Protocol Last Admin: 07/14/21 09:34 Dose: 25 mg Documented by: ELIEL Ondansetron HCl (Ondansetron Hcl 4 Mg/2 Ml Vial) 4 mg IVPUSH Q8H PRN PRN Reason: Nausea and Vomiting Pharmacy Consult (Consult Rx Perform Med Rec) 1 each MISCELLANE ONCE PRN PRN Reason: Consult order Pharmacy Consult (Consult Rx Vancomycin Dosing) 1 each MISCELLANE DAILY PRN PRN Reason: Consult order Polyethylene Glycol (Polyethylene Glycol 3350 17 Gm Powd.Pack) 17 gm PO DAILY [facility] Last Admin: 07/15/21 11:03 Dose: Not Given Documented by: ELIEL Non-Admin Reason: pt has diarrhea Scopolamine (Scopolamine 1.5 Mg Patch.Td.3) 1.5 mg EAR-BEHIND Q72H [facility] Last Admin: 07/12/21 16:35 Dose: 1.5 mg Documented by: ALLY Sodium Chloride (0.9 % Sodium Chloride Flush 3 Ml Syringe) 3 ml IVFLUSH QSHIFT [facility] Last Admin: 07/15/21 11:08 Dose: Not Given Documented by: ELIEL Non-Admin Reason: IV Running Trazodone HCl (Trazodone Hcl 25 Mg Halftab) 25 mg PO BEDTIME [facility] Last Admin: 07/14/21 22:37 Dose: 25 mg Documented by: KARENOIC <ARMIDA Hawley - Last Filed: 07/15/21 13:52> Labs CBC & Chem 7: : 07/14/21 06:46 07/15/21 06:24 <ARMIDA Hawley - Last Filed: 07/15/21 13:52> Labs: Laboratory Results - last 24 hr 07/14/21 07/14/21 07/15/21 15:50 19:51 06:24 Anion Gap Estim Creat Clear Calc Estimated GFR POC Glucose 231 H 114 Random Glucose Calcium Vancomycin Trough 17.5 07/15/21 07/15/21 07/15/21 06:24 07:41 11:08 Anion Gap 16 Estim Creat Clear Calc 76.8 Estimated GFR > 60 POC Glucose 140 H 196 H Random Glucose 133 H Calcium 7.4 L D Vancomycin Trough <Trinity Campo PA - Last Filed: 07/15/21 13:52> Assessment and Plan (1) Severe sepsis: Status: Acute <ARMIDA Hawley - Last Filed: 07/15/21 13:52> (2) Encephalopathy: Status: Acute <ARMIDA Hawley - Last Filed: 07/15/21 13:52> (3) Atrial fibrillation with rapid ventricular response: Status: Acute <ARMIDA Hawley - Last Filed: 07/15/21 13:52> (4) Osteomyelitis: Status: Acute <ARMIDA Hawley - Last Filed: 07/15/21 13:52> Assessment and Plan: This is a 75-year-old female with a past medical history of suspected peripheral artery disease, on anticoagulation, hypothyroid, recurrent bacteremia, vascular dementia, type 2 diabetes who presents to the hospital after being sent from outpatient ultrasound for tachycardia. Her workup in the emergency room is concerning for sepsis secondary to non-healing ulcer of the l eft lower extremity and cellulitis. Severe sepsis due to LLE non-healing wound and cellulitis Met sepsis criteria with leukocytosis and tachypnea. Also is tachycardic and although in rapid AFib I suspect her rapid AFib is from sepsis. Had severe features with elevated lactate (6.7). This could be worsened from metformin use, but it has not been this elevated during her last admission when she was also septic. s/p sepsis fluid bolus based on ideal body weight - 62kg. LLE non-healing wound/Osteomyelitis r/t underlying diabetes and PVD MRI confirms osteomyelitis of the calcaneal tuberosity Continue zosyn (would cx from would clinic end of last month growing pseudomonas) started 07/11; will d/c vanco - previous MRSA nasal screen negative Seen by vascular surgery, noninvasive arterial testing showing severe stenosis right popliteal artery - surgery recommends conservative management for now; may eventually need amputation Blood cultures negative to date ID consult pending PICC line ordered for nursing home IV abx Encephalopathy. Improving. Much more alert this morning and less confused Likely metabolic secondary to hypernatremia and sepsis In the setting of underlying dementia Brain CT shows no acute changes Hypernatremia Resolved. Continue IV fluid Follow BNP A. fib with RVR had one pause 3.8 seconds 07/14. no further pauses. HR controlled continue home dose of metoprolol dysphagia seen by speech rec pureed solids and nectar thick liquids with pills crushed in puree Requires one-to-one assistance with feeding SHREYAS. Resolved. Creatinine improved follow renal function DM hold metformin sliding scale Schizoaffective d/o continue her baseline meds, valproate, aripiprazole, lorazepam and trazodone Duloxetine can't be crushed and will be placed on hold Hypothyroidism synthroid Hypertension Continue metoprolol Pressure ulcer b/l buttock present on admission see previous images continue local wound care, frequent repositioning Full Code per MOLST on EMR. Code status discussed with son/HCP Anthony. He will think about changing her code status to DNR, but is not ready to make that decision at this time. [facility] Attending physician-Dr. Guerrier <ARMIDA Hawley - Last Filed: 07/15/21 13:52> Quality Stroke Does the patient have a stroke diagnosis?: No <ARMIDA Hawley - Last Filed: 07/15/21 13:52> VTE Prior VTE?: No <ARMIDA Hawley - Last Filed: 07/15/21 13:52> VTE Risk Level:: Medical - moderate - high <ARMIDA Hawley - Last Filed: 07/15/21 13:52> VTE Device Contraindication: Treatment Not Indicated <ARMIDA Hawley - Last Filed: 07/15/21 13:52> VTE Drug Contraindication: N/A - Med Ordered <ARMIDA Hawley - Last Filed: 07/15/21 13:52>
[2021-07-15] MEDS: Scopolamine 1.5 MG PATCH.TD.3 EAR-BEHIND (14:34)
[2021-07-15 16:26] LABS: Glucose, Whole Blood 82 mg/dL (60-115)
[2021-07-15] MEDS: LORazepam 0.5 MG TABLET PO (17:41)
[2021-07-15] MEDS: Metoprolol Tartrate 25 MG TABLET PO ×2 (17:45→21:10)
[2021-07-15] MEDS: Enoxaparin Sodium 40 MG/0.4 ML SYRINGE SUBCUT (17:47)
[2021-07-15 20:43] LABS: Glucose, Whole Blood 75 mg/dL (60-115)
[2021-07-15] MEDS: traZODone HCL 25 MG HALFTAB PO (21:11)
[2021-07-15] MEDS: 0.9 % Sodium Chloride Flush 3 ML SYRINGE IVFLUSH (21:18)
[2021-07-16] MEDS: Dextrose 5 % 1,000 ML 100 ML IVCONT (01:24)
[2021-07-16 03:25] VITALS: BP 128/51; PULSE 79; RESP 18; TEMP 36.6; O2SAT 93
[2021-07-16] MEDS: Piperacillin Sodium/Tazobactam 2.25 GM in 0.9 % Sodium Chloride 50 ML IV ×2 (05:26→12:15)
[2021-07-16 07:14] LABS: Anion Gap 18 (12-20); Blood Urea Nitrogen 9 mg/dL (9-16); Calcium 7.2 mg/dL (8.4-10.2); Carbon Dioxide 19 mmol/L (22-29); Chloride 107 mmol/L (96-108); Creatinine Clr Calc Pharmacy 81.8; Estimated Glomerular Filt Rate > 60; Glucose Random 104 mg/dL (60-115); Potassium 4.5 mmol/L (3.3-5.1); Sodium 139 mmol/L (135-145)
[2021-07-16 07:26] VITALS: BP 110/71; PULSE 91; RESP 18; O2SAT 98
[2021-07-16 07:50] LABS: Glucose, Whole Blood 118 mg/dL (60-115)
[2021-07-16 08:20] LABS: Hematocrit 28.7 % (37-47); Hemoglobin 9.9 g/dl (12.0-16.0); Mean Corpuscular HGB Conc 34.5 g/dl (31.0-35.0); Mean Corpuscular Hemoglobin 32.9 pg (27.0-33.0); Mean Corpuscular Volume 95.3 fL (80-98); NRBC Pct Auto 0.2 /100WBC (0.0-0.2); Red Blood Count 3.01 X10*6/uL (4.20-5.50); Red Cell Distribution Width 14.3 % (11.0-16.0)
[2021-07-16 08:25] LABS: White Blood Count 12.1 X10*3/uL (4.8-10.8)
[2021-07-16 09:32] VITALS: BP 122/74; PULSE 91
[2021-07-16] MEDS: Metoprolol Tartrate 25 MG TABLET PO (09:32)
[2021-07-16] MEDS: Aspirin Enteric Coated 81 MG TABLET.DR PO (09:32)
[2021-07-16] MEDS: Insulin Lispro 100 UNIT/ML 3 ML VIAL SUBCUT ×2 (09:32→12:16)
[2021-07-16] MEDS: Divalproex Sodium Sprinkles 125 MG CAP.DR.SPR 500 MG PO (09:32)
[2021-07-16] MEDS: ARIPiprazole 15 MG TABLET PO (09:32)
--- NOTE | 2021-07-16 10:58 | PC.NURSE ---
Skin/wound assessment completed today. Patient has stage 2 pressure ulcers to bilateral buttocks with a dark patch, yellow and some granulation. Also has an unstageable pressure to left heel. Buttocks and left heel treated with Triad, buttocks covered with foam and heel covered with gauze and roll gauze. EPC cream to redness in periarea, interdry under right breast and groin.
[2021-07-16 11:36] LABS: Glucose, Whole Blood 133 mg/dL (60-115)
[2021-07-16 11:46] VITALS: BP 104/53; PULSE 80; RESP 17; TEMP 36.1; O2SAT 99
--- NOTE | 2021-07-16 12:37 | MHC.SL.SWA ---
Speech Pathologist Impression: Risk of Aspiration Oralpharyngeal Dysphagia Risk of Aspiration Due to: Reduced Cognition Dysphasia Diet Status: No Change Liquid Consistency and Strategies for Safe Swallow: Liquid Intake Recommendation: Jenera Thick Liquid Intake Strategies: Small Sips No Straws Solid Food Consistency: Dietary Recommendations: Pureed (NDD1) Patient was seen by TREASURY ANALYST for dysphagia during previous hospitalization in April-May 2021 when she was admitted for sepsis. At that time, patient was discharged with recommendation for ground/mech altered solids and thin liquids, with pills crushed in puree. Bedside dysphagia evaluation was ordered on 07/12/21 in ED as patient failed nursing swallow screening and coughed on water. PO trials administered. Patient displayed overt s/s of aspiration when drinking thin liquid. Note prolonged oral phase. Delayed swallow and incomplete laryngeal elevation. Patient tolerated thickened liquids. Patient does not appear appropriate for upgrade at this time. Recommend CONTINUE PUREED (NDD1) solids and NECTAR THICK liquids by spoon sip or CONTROLLED cup sip, with pills CRUSHED in PUREE. NO STRAW. Recommend control cup sip for small bolus size or administer liquids by spoon. Check oral cavity to ensure clearance before presenting more bites. Aspiration precautions apply. Patient requires 1:1 assistance feeding. Oral Medication Intake: Crushed with Puree Compensatory Strategies and Precautions to be Taken for Safe Swallow: Sitting Upright (90 deg) No Straw Small Bites and Sips Alternate Liquids/Solids Rate of Ingestion Change Oral Check Supervision While Eating and Drinking for Safe Swallow: Total Assistance Foods to Avoid: NO STRAW Swallowing Recommended Treatments: Compens. Strategy Educat. Recommendation for Speech: Inpatient Speech Therapy Comment: Patient requires 1:1 assistance feeding. Digital Project Coordinator Clinican/Clinical Fellow: No Supervisory Statement: I have reviewed and agree with the student/clinical fellow's documentation: N/A Speech Language Pathologist: Jelly Mena M.A., CCC-TREASURY ANALYST
--- NOTE | 2021-07-16 13:02 | PM.DS ---
DS: Providers Provider Date of Service: 07/16/21 Date of admission: 07/11/21 15:49 Primary care physician: Dimple Mcintosh MD Consults: 07/11/21 17:10 Consult to Vascular Surgery Routine Consulting Provider: Erwin Meeks Reason for consultation: non-healing ulcler, infected 07/15/21 07:43 Consult to Infectious Diseases Routine Consulting Provider: Emma Shelton Reason for consultation: osteomyelitis Has provider been notified: No DS: Diagnosis Discharge Diagnosis (1) Severe sepsis: Status: Acute (2) Encephalopathy: Status: Acute (3) Atrial fibrillation with rapid ventricular response: Status: Acute (4) Osteomyelitis: Status: Acute DS: Summary Hospital Course Hospital Course: patient was admitted for severe sepsis, metabolic encephalopathy, afib with rvr, LLE non healing diabetic ulcer with osteomyelitis, complicated by SHREYAS, dysphagia, hypernatremia. Patient has been culture came back positive Pseudomonas, she was treated with Zosyn and vancomycin was DCed. She was seen by vascular surgery, noninvasive arterial testing showed severe stenosis of right popliteal artery, surgery recommended conservative management. Patient's encephalopathy improved. Hypernatremia resolved. For atrial fibrillation with rapid ventricular response, is sepsis resolved heart rate became controlled, she continued on metoprolol. For her dysphagia she was seen by speech who recommended. Solids and nectar thick liquids. Patient was seen by infectious disease recommended 6 weeks of p.o. Levaquin. Time Spent with Patient Time attestation: Total time spent providing and/or coordinating discharge services: Discharge coordination time: Greater than 30 minutes Quality: Stroke Does the patient have a stroke diagnosis?: No Physical Exam Vital Signs: Vital Signs: Last Vital Signs Temp 97.0 F 07/16/21 11:46 Pulse 80 07/16/21 11:46 Resp 17 07/16/21 11:46 BP 104/53 L 07/16/21 11:46 Pulse Ox 99 07/16/21 11:46 Body Mass Index 30.2 Const Other:?Awake and alert this morning Taling more Dry mucous membranes General:?no acute distress and awake Nutritional Appearance:?well nourished HENVT Head:?Yes normocephalic and Yes atraumatic Eyes Sclerae:?sclerae normal Pupils:?Equal, round and reactive pupils present Resp Effort & Inspection:?normal respiratory effort and no respiratory distress Cardio Rate:?regular rate Heart sounds:?S1 normal heart sound present and S2 normal heart sound present GI Palpation (GI):?Soft to palpation and nontender Skin Other:?left heel wound wrapped in clean dressing; coccyx wound unchanged. macerated skin upper thighs Neuro Cranial nerves:?Yes CN's II-XII intact bilaterally, Yes Equal, round and reactive pupils present and Yes Bilaterally intact EOM present Extrem Other:?b/l heel protectors in place; leg edema DS: Data Data Completed and Pending Labs on day of discharge: Laboratory Results - last 24 hr 07/15/21 07/15/21 07/16/21 16:16 20:34 05:57 WBC RBC Hgb Hct MCV MCH MCHC RDW Plt Count MPV Absolute Nucleated RBC Nucleated RBC % (auto) Sodium 139 Potassium 4.5 Chloride 107 Carbon Dioxide 19 L Anion Gap 18 BUN 9 Creatinine 0.63 Estim Creat Clear Calc 81.8 Estimated GFR > 60 POC Glucose 82 75 Random Glucose 104 Calcium 7.2 L 07/16/21 07/16/21 07/16/21 07:28 08:10 11:28 WBC 12.1 H RBC 3.01 L Hgb 9.9 L Hct 28.7 L MCV 95.3 D MCH 32.9 MCHC 34.5 RDW 14.3 Plt Count TNP MPV TNP Absolute Nucleated RBC 0.020 H Nucleated RBC % (auto) 0.2 Sodium Potassium Chloride Carbon Dioxide Anion Gap BUN Creatinine Estim Creat Clear Calc Estimated GFR POC Glucose 118 H 133 H Random Glucose Calcium Preliminary micro results at discharge 07/11/21 14:32 Blood Culture - Preliminary Blood - Venous No growth after 48 hours. 07/11/21 14:34 Blood Culture - Preliminary Blood - Venous No growth after 48 hours. Discharge Plan Discharge Patient Disposition: er SNF Discharge Diagnosis: OM Referrals: Dimple Mcintosh MD [Primary Care Provider] - 1 Week Discharge Medications: Continued metformin 500 mg Tablet 500 mg PO BID RF: 0 trazodone 50 mg Tablet 25 mg PO BEDTIME RF: 0 polyethylene glycol 3350 17 gram Powder In Packet 17 g PO DAILY RF: 0 divalproex 500 mg Tablet,Delayed Release (Dr/Ec) 500 mg PO BID RF: 0 aspirin 81 mg Tablet,Delayed Release (Dr/Ec) 81 mg PO DAILY RF: 0 levothyroxine 100 mcg Tablet 100 mcg PO DAILY RF: 0 lorazepam 0.5 mg Tablet 0.5 mg PO DAILY@1800 RF: 0 Culturelle 10 billion cell Capsule 1 cap PO BID RF: 0 aripiprazole 15 mg Tablet 15 mg PO DAILY RF: 0 metoprolol tartrate 25 mg Tablet 25 mg PO BID RF: 0 duloxetine 20 mg Capsule,Delayed Release(Dr/Ec) 20 mg PO DAILY RF: 0 chlorhexidine gluconate [Peridex] 0.12 % Mouthwash 15 ml BUCCAL BID RF: 0 levofloxacin 500 mg Tablet 500 mg PO DAILY Qty: 38 RF: 0 Discontinued cefuroxime axetil [Ceftin] 250 mg Tablet 250 mg PO BID RF: 0 Discharge Orders: Discharge Order (Routine); Ordered 07/16/21 Ordered By: Dontae Rondon Diet: advance to usual diet Activity on Discharge: As tolerated Stand Alone Forms: Patient Portal Discharge page Care Plan Goals: recovery Health Concerns: om Plan of Treatment: pureed, nectar thick liquids, 6 weeks levaquin Assessment: see above
--- NOTE | 2021-07-16 14:08 | MHC.CM.PN ---
Patient has been medically cleared for dc to SNF/LTC today. Patient will return to LTC at [facility] today at 6PM, via [facility]. CM has left a detailed message for Son/HCP/Anthony @ [phone] and original IMM will be mailed out certified letter to him and a copy will be placed on the chart.
[2021-07-16 14:22] LABS: COVID-19 Test Negative (Negative); IDNOW Serial# 08D9AD1C
--- NOTE | 2021-07-16 16:21 | W.PM.IDCN ---
History of Present Illness Data of Consult Service Date: 07/16/21 Requesting physician: Dontae Rondon Primary Care Provider: Dimple Mcintosh MD HPI Reason for consult: osteomyelitis foot She presents with darkness left heel. 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 Review of Systems Review of Systems: Yes all other systems are reviewed and are negative PMFSH Past Medical History Medical History Atrial fibrillation Chronic constipation Hypertension Hypothyroidism Recurrent bacteremia Recurrent cellulitis Schizoaffective disorder Trimalleolar fracture of ankle, closed Type 2 diabetes mellitus Vascular dementia Vitamin B12 deficiency Vitamin D deficiency Family History Family history: reviewed and not pertinent Surgical History Surgical History Status post ORIF of fracture of ankle Social History Social History Household Members: None Housing: Shelter Do you presently have visiting nurse or other home services: No Patient Tobacco Use Status: Never used Tobacco Advance Directives Date on File: 05/15/21 service: No Current occupational status: disabled Meds Allergies Allergy/AdvReac Type Severity Reaction Status Date / Time No Known Allergies Allergy Verified 06/21/21 14:52 Active Medications: Current Medications Acetaminophen (Acetaminophen 325 Mg Tablet) 650 mg PO Q6H PRN PRN Reason: Pain, Mild (Pain Scale 1-3) Aripiprazole (Aripiprazole 15 Mg Tablet) 15 mg PO DAILY COUNT INCLUDES THE [facility] Last Admin: 07/16/21 09:32 Dose: 15 mg Documented by: Aspirin (Aspirin Enteric Coated 81 Mg Tablet.) 81 mg PO DAILY COUNT INCLUDES THE [facility] Last Admin: 07/16/21 09:32 Dose: 81 mg Documented by: Atropine Sulfate (Atropine Sulfate 1 % Ophth Minda 2 Ml Bottle) 2 drop SUBLINGUAL Q2H PRN PRN Reason: Secretions Chlorhexidine Gluconate (Chlorhexidine Gluc Oral Rinse 15 Ml Mouthwash) 15 ml BUCCAL BID COUNT INCLUDES THE [facility] Last Admin: 07/16/21 09:32 Dose: Not Given Documented by: Dextrose (Dextrose 50 % 25 Gm/50 Ml Vial) 25 gm IVPUSH Q15M PRN; Protocol PRN Reason: per Hypoglycemia Standing Ord. Divalproex Sodium (Divalproex Sodium Sprinkles 125 Mg Cap.) 500 mg PO BID COUNT INCLUDES THE [facility] Last Admin: 07/16/21 09:32 Dose: 500 mg Documented by: Duloxetine HCl (Duloxetine Hcl 20 Mg Tessa.) 20 mg PO DAILY COUNT INCLUDES THE [facility] Last Admin: 07/13/21 11:26 Dose: Not Given Documented by: Enoxaparin Sodium (Enoxaparin Sodium 40 Mg/0.4 Ml Syringe) 40 mg SUBCUT Q24H COUNT INCLUDES THE [facility] Last Admin: 07/15/21 17:47 Dose: 40 mg Documented by: Glucose (Glucose Gel 15 Gm Gel..Gram.) 15 gm PO Q15M PRN; Protocol PRN Reason: per Hypoglycemia Standing Ord. Piperacillin Sod/Tazobactam (Sod 2.25 gm/ Sodium Chloride) 50 mls @ 100 mls/hr IV Q6H COUNT INCLUDES THE [facility] Last Infusion: 07/16/21 13:22 Dose: Infused Documented by: Insulin Human Lispro (Insulin Lispro 100 Unit/Ml 3 Ml Vial) 5 unit SUBCUT QIDACHS COUNT INCLUDES THE [facility] Last Admin: 07/16/21 12:16 Dose: 5 unit Documented by: Insulin Human Lispro (Insulin Lispro 100 Unit/Ml 3 Ml Vial) 0 unit SUBCUT QIDACHS COUNT INCLUDES THE [facility]; Protocol Last Admin: 07/16/21 11:44 Dose: Not Given Documented by: Levothyroxine Sodium (Levothyroxine Sodium 100 Mcg Tablet) 100 mcg PO DAILY@0600 COUNT INCLUDES THE [facility] Last Admin: 07/16/21 05:40 Dose: Not Given Documented by: Lorazepam (Lorazepam 0.5 Mg Tablet) 0.5 mg PO DAILY@1800 COUNT INCLUDES THE [facility] Last Admin: 07/15/21 17:41 Dose: 0.5 mg Documented by: Metoprolol Tartrate (Metoprolol Tartrate 25 Mg Tablet) 25 mg PO BID COUNT INCLUDES THE [facility]; Protocol Last Admin: 07/16/21 09:32 Dose: 25 mg Documented by: Ondansetron HCl (Ondansetron Hcl 4 Mg/2 Ml Vial) 4 mg IVPUSH Q8H PRN PRN Reason: Nausea and Vomiting Pharmacy Consult (Consult Rx Perform Med Rec) 1 each MISCELLANE ONCE PRN PRN Reason: Consult order Pharmacy Consult (Consult Rx Vancomycin Dosing) 1 each MISCELLANE DAILY PRN PRN Reason: Consult order Polyethylene Glycol (Polyethylene Glycol 3350 17 Gm Powd.Pack) 17 gm PO DAILY COUNT INCLUDES THE [facility] Last Admin: 07/16/21 09:33 Dose: Not Given Documented by: Scopolamine (Scopolamine 1.5 Mg Patch.Td.3) 1.5 mg EAR-BEHIND Q72H COUNT INCLUDES THE [facility] Last Admin: 07/15/21 14:34 Dose: 1.5 mg Documented by: Sodium Chloride (0.9 % Sodium Chloride Flush 3 Ml Syringe) 3 ml IVFLUSH QSHIFT COUNT INCLUDES THE [facility] Last Admin: 07/16/21 07:59 Dose: Not Given Documented by: Trazodone HCl (Trazodone Hcl 25 Mg Halftab) 25 mg PO BEDTIME COUNT INCLUDES THE [facility] Last Admin: 07/15/21 21:11 Dose: 25 mg Documented by: Home Medications Medication Instructions Recorded Confirmed Last Taken Type Lactobacillus rhamnosus GG 10 1 cap PO BID 05/15/21 07/11/21 07/10/21 History billion cell capsule (Culturelle) aripiprazole 15 mg tablet 15 mg PO DAILY 05/15/21 07/11/21 07/10/21 History aspirin 81 mg tablet,delayed 81 mg PO DAILY 05/15/21 07/11/21 07/10/21 History release chlorhexidine gluconate 0.12 % 15 ml BUCCAL BID 05/15/21 07/11/21 07/10/21 History mouthwash (Peridex) divalproex 500 mg tablet,delayed 500 mg PO BID 05/15/21 07/11/21 07/10/21 History release duloxetine 20 mg capsule,delayed 20 mg PO DAILY 05/15/21 07/11/21 07/10/21 History release levothyroxine 100 mcg tablet 100 mcg PO DAILY 05/15/21 07/11/21 07/10/21 History lorazepam 0.5 mg tablet 0.5 mg PO DAILY@1800 05/15/21 07/11/21 07/10/21 History metformin 500 mg tablet 500 mg PO BID 05/15/21 07/11/21 07/10/21 History metoprolol tartrate 25 mg tablet 25 mg PO BID 05/15/21 07/11/21 07/10/21 History polyethylene glycol 3350 17 gram 17 g PO DAILY 05/15/21 07/11/21 07/10/21 History oral powder packet trazodone 50 mg tablet 25 mg PO BEDTIME 07/07/11/21 07/10/21 History Physical Exam Vital Signs: Vital Signs: Last Vital Signs Temp 97.0 F 07/16/21 11:46 Pulse 80 07/16/21 11:46 Resp 17 07/16/21 11:46 BP 104/53 L 07/16/21 11:46 Pulse Ox 99 07/16/21 11:46 Body Mass Index 30.2 Const: General: cooperative HENMT: Head: Yes normal to inspection Mouth: Normal oral and palatal mucosa present Resp: Effort & Inspection: normal respiratory effort Cardio: Rate: regular rate Rhythm: regular rhythm GI: Palpation (GI): Soft to palpation and nontender Extrem: Other: left darkened heel Results Labs CBC & Chem 7: 07/16/21 08:10 07/16/21 05:57 Labs: Short CBC 07/16/21 Range/Units 08:10 WBC 12.1 H (4.8-10.8) X10*3/uL Hgb 9.9 L (12.0-16.0) g/dl Hct 28.7 L (37-47) % Plt Count TNP BMP 07/16/21 05:57 Sodium 139 Potassium 4.5 Chloride 107 Carbon Dioxide 19 L BUN 9 Creatinine 0.63 Calcium 7.2 L Microbiology Microbiology Results: Microbiology 07/11/21 14:32 Blood - Venous Blood Culture - Preliminary No growth after 48 hours. 07/11/21 14:34 Blood - Venous Blood Culture - Preliminary No growth after 48 hours. 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 Po Levaquin for six weeks (2) Encephalopathy: Status: Acute
[2021-07-16 16:41] VITALS: BP 124/61; PULSE 83; RESP 18; TEMP 35.9
[2021-07-16] MEDS: LORazepam 0.5 MG TABLET PO (17:40)
== END 2021-07-16 18:33 | disposition skilled nursing facility (03) | DRG 871 ==
LOC: HO.ED 14:00 → HO.EDOVER 17:39 → HO.IMC 07-12 17:35
PROVIDERS: Physician Assistant Medical; Surgery Vascular Surgery; Absent Provider Family Medicine; Admitting Provider Family Medicine; Emergency Provider Student in an Organized Health Care Education/Training Program; PCP Internal Medicine; Visit Provider Internal Medicine
DX: A41.9 Sepsis, unspecified organism (principal); G93.41 Metabolic encephalopathy; E87.2 Acidosis; N17.9 Acute kidney failure, unspecified; L03.116 Cellulitis of left lower limb; L97.326 Non-pressure chronic ulcer of left ankle with bone involvement without evidence of necrosis; M86.9 Osteomyelitis, unspecified; R65.20 Severe sepsis without septic shock; E11.621 Type 2 diabetes mellitus with foot ulcer; E11.51 Type 2 diabetes mellitus with diabetic peripheral angiopathy without gangrene; R13.10 Dysphagia, unspecified; E11.69 Type 2 diabetes mellitus with other specified complication; L89.322 Pressure ulcer of left buttock, stage 2; B96.5 Pseudomonas (aeruginosa) (mallei) (pseudomallei) as the cause of diseases classified elsewhere; L89.312 Pressure ulcer of right buttock, stage 2; I70.201 Unspecified atherosclerosis of native arteries of extremities, right leg; I48.91 Unspecified atrial fibrillation; E03.9 Hypothyroidism, unspecified; Z20.822 Contact with and (suspected) exposure to COVID-19; Z79.82 Long term (current) use of aspirin; Z79.890 Hormone replacement therapy; Z79.899 Other long term (current) drug therapy
CPT/HCPCS: 36415; 70450; 71046; 73630; 73720; 74018; 80048; 80076; 80164; 80202; 82140; 82947; 83605; 84484; 85007; 85027; 85652; 86140; 87040; 87635; 92610; 93005; 93923; 93925; 93926; 96365; 96367; 99285; A9585; C1758; J0690; J1650; J2543; J3370